=== PATIENT | female | born 1950 | race Caucasian/White ===

== ENCOUNTER → 2016-12-24 | Outpatient (CLI) | payer MEDICARE, OTHER ==
--- NOTE | 2016-12-25 12:33 | MM ---
Reason for exam: screening (asymptomatic). Last mammogram was performed 1 year ago. History: Patient is postmenopausal. Family history of breast cancer in paternal aunt and breast cancer in maternal cousin. Benign US LT VAD breast biopsy of the left breast, June 08, 2012. Left U/S Cancelled VAD Biopsy of both breasts, November 27, 2011. Took estrogen for 2 years. Physical Findings: A clinical breast exam by your physician is recommended on an annual basis and results should be correlated with mammographic findings. MG 3D Screening Mammo W/Cad Bilateral CC and MLO view(s) were taken. Prior study comparison: December 19, 2015, bilateral MG 3d screening mammo w/cad. December 13, 2014, bilateral MG 3d diag mammo w/cad ESTHELA. The breast tissue is heterogeneously dense. This may lower the sensitivity of mammography. No suspicious abnormality. Post biopsy change on left breast. No significant changes when compared with prior studies. ASSESSMENT: Benign, BI-RAD 2 RECOMMENDATION: Routine screening mammogram of both breasts in 1 year.
== END | disposition home or self-care (01) ==
LOC: RADMAMWWP 09:09
PROVIDERS: ATTEND Obstetrics & Gynecology
DX: Z12.31 Encounter for screening mammogram for malignant neoplasm of breast (principal)
CPT/HCPCS: 77063; G0202

== ENCOUNTER → 2018-01-07 | Outpatient (CLI) | payer MEDICARE, OTHER ==
--- NOTE | 2018-01-07 20:24 | BD ---
EXAMINATION TYPE: Axial Bone Density DATE OF EXAM: 01/07/2018 CLINICAL HISTORY: 67-year-old female osteopenia Height: 64 inches Weight: 181 FRAX RISK QUESTIONS: Alcohol (3 or more units per day): no Family History (Parent hip fracture): yes, father Glucocorticoids (More than 3mos): no (Ex: prednisone, prednisolone, methylprednisolone, dexamethasone, and hydrocortisone). History of Fracture in Adulthood: foot-"hair-line" frac ture 12-15 years ago Secondary Osteoporosis: 1. Type 1 Diabetes: no 2. Hyperthyroidism: unsure 3. Menopause before 45: no 4. Malnutrition: no 5. Chronic liver disease: no Rheumatoid Arthritis: no Current Tobacco Use: no RISK FACTORS HISTORY OF: Family History of Osteoporosis: yes Active: yes Diet low in dairy products/other sources of calcium: no Postmenopausal woman: yes Take estrogen and/or progesterone medications: not now How lon years Lost more than 2 inches in height since high school: no Frequent falls: no Poor Health: no Hyperparathyroidism: no Adrenal Insufficiency: no MEDICATIONS: Prednisone or other steroids: no Thyroid Medications: yes Which medication: Levothyroxine How Long: about 15 years Osteoporosis Medications: not now Which medication: Actonel How Long: about 12-18 months... several years ago Additional Medications: calcium & Vitamin D ; Multi-vitamin, Simvastatin Additional History: EXAM MEASUREMENTS: Bone mineral densitometry was performed using the [email or web address] System. Bone mineral density as measured about the Lumbar spine is: ----- L1-L4(G/cm2): 1.051 T Score Values are as follows: ----- L2: -1.0 ----- L3: -0.5 ----- L4: -1.3 ----- L1-L4: -1.1 Bone mineral density has: Decreased -1.2% since study of: 04/04/2015 Bone mineral density about the R hip (g/cm2): 0.863 Bone mineral density about the L hip (g/cm2): 0.874 T Score values are as follows: -----R Neck: -1.3 -----L Neck: -1.2 -----R Total: 0.0 -----L Total: -0.3 Bone mineral density has: Decreased -1.0% since study of: 04/04/2015 IMPRESSION: Osteopenia (T Score between -2.5 and -1). There is slightly increased risk of fracture and the patient may be considered for treatment. Re-Screen 2-5 years. NOTE: T-SCORE=SD OF THE YOUNG ADULT MEAN.
--- NOTE | 2018-01-12 10:47 | MM ---
Reason for exam: screening (asymptomatic). Last mammogram was performed 1 year ago. History: Patient is postmenopausal. Family history of breast cancer in paternal aunt and breast cancer in maternal cousin. Benign US LT VAD breast biopsy of the left breast, June 08, 2012. Left U/S Cancelled VAD Biopsy of both breasts, November 27, 2011. Took estrogen for 2 years. Physical Findings: A clinical breast exam by your physician is recommended on an annual basis and results should be correlated with mammographic findings. MG 3D Screening Mammo W/Cad Bilateral CC and MLO view(s) were taken. Prior study comparison: December 24, 2016, bilateral MG 3d screening mammo w/cad. December 19, 2015, bilateral MG 3d screening mammo w/cad. The breast tissue is heterogeneously dense. This may lower the sensitivity of mammography. No suspicious abnormality on left. Left biopsy marker noted. There are two new rounded central middle depth asymmetires on CC 3D 32/67 on the right. No correlate on MLO. ASSESSMENT: Incomplete: need additional imaging evaluation, BI-RAD 0 RECOMMENDATION: Special view mammogram of the right breast. If lesion persists on supplemental views, image directed ultrasound is recommended. [facility] will attempt to contact patient to return for supplemental views and ultrasound if indicated.
== END | disposition home or self-care (01) ==
LOC: RADMAMWWP 11:38
PROVIDERS: ATTEND Obstetrics & Gynecology
DX: Z12.31 Encounter for screening mammogram for malignant neoplasm of breast (principal); M85.80 Other specified disorders of bone density and structure, unspecified site; M89.9 Disorder of bone, unspecified
CPT/HCPCS: 77063; 77067; 77080

== ENCOUNTER → 2018-01-13 | Outpatient (CLI) | payer MEDICARE, OTHER ==
--- NOTE | 2018-01-13 14:54 | MM ---
Reason for exam: additional evaluation requested from abnormal screening. Last mammogram was performed less than 1 month ago. History: Patient is postmenopausal. Family history of breast cancer in paternal aunt and breast cancer in maternal cousin. Benign US LT VAD breast biopsy of the left breast, June 08, 2012. Left U/S Cancelled VAD Biopsy of both breasts, November 27, 2011. Took estrogen for 2 years. Physical Findings: Nurse did not find any significant physical abnormalities on exam. MG 3D Work Up W/Cad RT Spot compression CC, spot compression MLO, and ML view(s) were taken of the right breast. Prior study comparison: January 07, 2018, bilateral MG 3d screening mammo w/cad. December 24, 2016, bilateral MG 3d screening mammo w/cad. There is chronic nodularity in the right breast. There is no discrete abnormality on compression. No significant new findings when compared with previous films. These results were verbally communicated with the patient and result sheet given to the patient on 01/13/18. ASSESSMENT: Probably benign, BI-RAD 3 RECOMMENDATION: Routine screening mammogram of the right breast in 6 months.
== END | disposition home or self-care (01) ==
LOC: RADMAMWWP 13:41
PROVIDERS: ATTEND Obstetrics & Gynecology
DX: R92.8 Other abnormal and inconclusive findings on diagnostic imaging of breast (principal)
CPT/HCPCS: 77065; G0279; 77061

== ENCOUNTER → 2018-05-01 | Outpatient (CLI) | payer MEDICARE, OTHER ==
--- NOTE | 2018-05-01 11:05 | US ---
EXAMINATION TYPE: US pelvic complete DATE OF EXAM: 05/01/2018 COMPARISON: US 03/23/15 CLINICAL HISTORY: R60.0 EDEMA R74.8 elevated liver enzymes. TECHNIQUE: Transabdominal (TA). Transabdominal sonographic images of the pelvis were acquired. Date of LMP: postmenopausal EXAM MEASUREMENTS: Uterus: Surgically absent cm Endometrial Stripe: Surgically absent cm Right Ovary: Not well seen cm Left Ovary: 1.7 x 1.1 x 1.1 cm 1. Uterus: Surgically absent 2. Endometrium: Surgically absent 3. Right Ovary: No pathology seen 4. Left Ovary: wnl. 5. Bilateral Adnexa: wnl 6. Posterior cul-de-sac: wnl IMPRESSION: Limited exam.
--- NOTE | 2018-05-01 11:51 | US ---
EXAMINATION TYPE: US abdomen complete DATE OF EXAM: 05/01/2018 COMPARISON: NONE CLINICAL HISTORY: R60.0 EDEMA R74.8 elevated liver enzymes. EXAM MEASUREMENTS: Liver Length: 14.2 cm Gallbladder Wall: 0.1 cm CBD: 0.5 cm Spleen: 10.4 cm Right Kidney: 11.4 x 5.6 x 3.9 cm Left Kidney: 10.5 x 5.9 x 5.6 cm Pancreas: Obscured by bowel gas Liver: wnl Gallbladder: wnl Evidence for sonographic Hudson's sign: No CBD: wnl Spleen: wnl Right Kidney: No hydronephrosis or masses seen Left Kidney: No hydronephrosis or masses seen Upper IVC: wnl Abd Aorta: wnl, there are atheromatous changes. There is no ascites. IMPRESSION: There are limitations. No significant abnormalities evident.
== END ==
LOC: RADUSWWP 09:22
PROVIDERS: ATTEND Family Medicine
DX: R60.0 Localized edema (principal); R74.8 Abnormal levels of other serum enzymes
CPT/HCPCS: 76700; 76856

== ENCOUNTER → 2018-07-03 | Outpatient (CLI) | payer MEDICARE, OTHER ==
--- NOTE | 2018-07-03 14:07 | XR ---
EXAMINATION TYPE: XR bone survey complete DATE OF EXAM: 07/03/2018 COMPARISON: NONE HISTORY: Arthritis, monoclonal gammopathy 16 views of the skeleton including the frontal and lateral spine, frontal calvarium, frontal chest x- ray, frontal views of the proximal upper and lower extremities and frontal pelvis. There is an anterolisthesis grade 1 L4-5, there are facet arthropathy changes associated with degener ative disc change in the lumbar spine. No punched-out lesions to suggest multiple myeloma are evident . Bone mineralization is reduced. Anterolisthesis grade 1 C4-5, loss of disc at C5-6 with associated spondylosis also noted. There are facet arthropathy changes in the cervical spine. IMPRESSION: Degenerative disc changes, osteopenia.
== END | disposition home or self-care (01) ==
LOC: RADXRMAIN 10:11
PROVIDERS: ATTEND Internal Medicine Hematology & Oncology
DX: M51.36 Other intervertebral disc degeneration, lumbar region (principal); M85.80 Other specified disorders of bone density and structure, unspecified site; D47.2 Monoclonal gammopathy; M12.9 Arthropathy, unspecified; E03.8 Other specified hypothyroidism; E78.00 Pure hypercholesterolemia, unspecified
CPT/HCPCS: 77075

== ENCOUNTER → 2018-07-10 | Outpatient (CLI) | payer MEDICARE, OTHER ==
--- NOTE | 2018-07-10 12:25 | NM ---
EXAMINATION TYPE: NM bone scan whole body DATE OF EXAM: 07/10/2018 COMPARISON: Skeletal survey 07/03/2018 HISTORY: Monoclonal gammopathy Delayed whole-body scanning was performed following the injection of 23.1 mCi Tc 99m MDP. Images wer e acquired 3 hours post injection. FINDINGS: There is some focal radiotracer accumulation within the left distal forearm near the wrist which may be the injection site. There is increased uptake in the region of the right knee and at the left foot tarsal metatarsal junc tion most likely degenerative in nature. Spot imaging is performed over the axial and appendicular skeleton. No suspicious photopenic defects are evident. IMPRESSION: 1. No suspicious focal areas of abnormal uptake suggestive for metastatic type disease. 2. Focal uptake at the knee and left midfoot more likely related to degenerative changes
== END | disposition home or self-care (01) ==
LOC: RADNMMAIN 07:54
PROVIDERS: ATTEND Internal Medicine Hematology & Oncology
DX: D47.2 Monoclonal gammopathy (principal); Z91.09 Other allergy status, other than to drugs and biological substances
CPT/HCPCS: 78306; A9503

== ENCOUNTER → 2018-07-23 | Outpatient (CLI) | payer MEDICARE, OTHER ==
--- NOTE | 2018-07-23 09:37 | MM ---
Reason for exam: follow-up at short interval from prior study. Last mammogram was performed 6 months ago. History: Patient is postmenopausal. Family history of breast cancer in paternal aunt and breast cancer in maternal cousin. Benign US LT VAD breast biopsy of the left breast, June 08, 2012. Left U/S Cancelled VAD Biopsy of both breasts, November 27, 2011. Took estrogen for 2 years. Physical Findings: Nurse did not find any significant physical abnormalities on exam. MG 3D Diag Mammo W/Cad RT CC and MLO view(s) were taken of the right breast. Prior study comparison: January 13, 2018, right breast MG 3d work up w/cad RT. January 07, 2018, bilateral MG 3d screening mammo w/cad. The breast tissue is heterogeneously dense. This may lower the sensitivity of mammography. The previously seen abnormality resolves on additional views and appears as fibroglandular tissue compatible with summation. These results were verbally communicated with the patient and result sheet given to the patient on 07/23/18. ASSESSMENT: Benign, BI-RAD 2 RECOMMENDATION: Return to routine screening mammogram schedule for both breasts. Back on schedule for December 2018.
== END | disposition home or self-care (01) ==
LOC: RADMAMWWP 07:21
PROVIDERS: ATTEND Obstetrics & Gynecology
DX: R92.8 Other abnormal and inconclusive findings on diagnostic imaging of breast (principal)
CPT/HCPCS: 77065; G0279; 77061

== ENCOUNTER → 2019-02-08 | Outpatient (CLI) | payer MEDICARE, OTHER ==
--- NOTE | 2019-02-08 11:45 | MM ---
Reason for exam: follow-up at short interval from prior study. Last mammogram was performed 7 months ago. History: Patient is postmenopausal. Family history of breast cancer in paternal aunt at age 70 and breast cancer in maternal cousin at age 50. Benign US LT VAD breast biopsy of the left breast, June 08, 2012. Left U/S Cancelled VAD Biopsy of both breasts, November 27, 2011. Took estrogen for 2 years. Physical Findings: Nurse Summary: 1cm nodule in the left breast at 12 o'clock, 1 o'clock (nurse mj). MG 3D Diag Mammo W/Cad ESTHELA Bilateral CC and MLO view(s) were taken. Prior study comparison: July 23, 2018, right breast MG 3d diag mammo w/cad RT. January 13, 2018, right breast MG 3d work up w/cad RT. There are scattered fibroglandular densities. Previous mammotome biopsy in the left breast. There is chronic nodularity in the right breast. Two palpable markers anteriorly on the left. These results were verbally communicated with the patient and result sheet given to the patient on 02/08/19. ASSESSMENT: Incomplete: need additional imaging evaluation, BI-RAD 0 RECOMMENDATION: Ultrasound of the left breast. (targeted to the palpable)
--- NOTE | 2019-02-08 11:46 | USB ---
Reason for exam: additional evaluation requested from abnormal screening. History: Patient is postmenopausal. Family history of breast cancer in paternal aunt at age 70 and breast cancer in maternal cousin at age 50. Benign US LT VAD breast biopsy of the left breast, June 08, 2012. Left U/S Cancelled VAD Biopsy of both breasts, November 27, 2011. Took estrogen for 2 years. US Breast Limited LT Left limited breast ultrasound including focal area of concern, retroareolar and axilla demonstrates no cystic or solid lesion seen. Scanned 12-3 o'clock. These results were verbally communicated with the patient and result sheet given to the patient on 02/08/19. ASSESSMENT: Benign, BI-RAD 2 RECOMMENDATION: Routine screening mammogram of both breasts in 1 year. Manage on a clinical basis for suspected bruising at 12 o'clock.
== END | disposition home or self-care (01) ==
LOC: RADMAMWWP 10:09
PROVIDERS: ATTEND Obstetrics & Gynecology
DX: N63.20 Unspecified lump in the left breast, unspecified quadrant (principal); R92.8 Other abnormal and inconclusive findings on diagnostic imaging of breast
CPT/HCPCS: 77066; 76642; G0279; 77062

== ENCOUNTER → 2019-03-18 | Outpatient (CLI) | payer MEDICARE, OTHER ==
[2019-03-18 14:15] VITALS: BP 166/84; PULSE 86; RESP 18; TEMP 97.7
--- NOTE | 2019-03-18 14:54 | P.GSHP ---
History of Present Illness H&P Date: 03/18/19 Chief Complaint: breast mass Kinza is a 68 year old white female seen in consultation for Dr. Murphy/ Dr. Felix with a complaint of two nodules in her left breast. She noted the nodularity in January of 2019. The patient had a bilateral mammogram on 122 [id number]. This was a 3-D. It revealed a previous mammotome biopsy site in the left breast. Chronic nodularity was noted in the right breast. 2 palpable markers anteriorly on the left were placed ultrasound of the left breast was recommended. The patient underwent a left breast ultrasound on the same date no solid lesions or cystic lesions of concern were identified. The patient does not have any history of any recent trauma or infection in either breast. The patient states her prior stereotactic core biopsy was benign. She states that the area of nodularity is not painful. It has not changed in size. NO nipple discharge or skin changes. The patient has been diagnosed with polymyalgia rheumatica 2018, and follows with Dr. Nelson. She has a known monoclonal gammopathy however has not been diag nosed with multiple myeloma herself. caffeine: none smoke: none chocolate: occasional Family History: brother: liver cancer sister: multipe myloma, colon cancer brother: stomach cancer brother: prostate cancer brother: multiple myloma Hormonal History: menarche: 12 , 4 miscarriages, first born at 18. breast fed:no menopause: 47 BCP: no hormones: < 1 year Surgical History: 1. D&C,s 2. bladder suspension 3. partial hysterectomy Medical History: 1. polymalgia rheumatica Social History: smoke: none alcohol: none drugs: none - Constitutional Constitutional: Denies chills, Denies fever - EENT Comment: freckle right eye, increased pressure in eyes Eyes: right decreased vision Ears: deny: decreased hearing, tinnitus Ears, nose, mouth and throat: Denies headache, Denies sore throat - Breasts Breasts: bilateral: as per HPI - Cardiovascular Cardiovascular: Denies chest pain, Denies shortness of breath - Respiratory Respiratory: Denies cough, Denies 7 - Gastrointestinal Gastrointestinal: Denies abdominal pain, Denies diarrhea, Denies nausea, Denies vomiting - Genitourinary (Female) Genitourinary: Denies dysuria, Denies hematuria - Menstruation Menstruation: Reports post hysterectomy, Reports postmenopausal - Musculoskeletal Comment: PMR, on steroids for 8 months - Integumentary Integumentary: Denies pruritus, Denies rash - Neurological Neurological: Denies numbness, Denies weakness - Psychiatric Psychiatric: Denies anxiety, Denies depression - Endocrine Comment: hypothyroid Endocrine: Denies fatigue, Denies weight change - Hematologic/Lymphatic Comment: none - Allergic/Immunologic Allergic/Immunologic: Reports as per HPI Past Medical History Past Medical History: GI Bleed, Hyperlipidemia, Thyroid Disorder History of Any Multi-Drug Resistant Organisms: None Reported Past Surgical History: Bladder Surgery, Hysterectomy Additional Past Surgical History / Comment(s): D&C Past Anesthesia/Blood Transfusion Reactions: No Reported Reaction Smoking Status: Never smoker Past Alcohol Use History: None Reported Past Drug Use History: None Reported - Past Family History Brother(s) Family Medical History: Cancer, Coronary Artery Disease (CAD) Mother Family Medical History: Coronary Artery Disease (CAD), Diabetes Mellitus Father Family Medical History: Coronary Artery Disease (CAD), CVA/TIA Medications and Allergies Home Medications Medication Instructions Recorded Confirmed Type Calcium Carbonate [Calcium] 600 mg PO DAILY 01/22/16 03/18/19 History Cranberry Fruit Extract [Cranberry] 500 mg PO DAILY 01/22/16 03/18/19 History Levothyroxine Sodium [Synthroid] 88 mcg PO DAILY 01/22/16 03/18/19 History Multivitamins, Thera [Multivitamin] 1 tab PO DAILY 01/22/16 03/18/19 History Simvastatin [Zocor] 20 mg PO HS 01/22/16 03/18/19 History Acetaminophen [Tylenol Extra 500 mg PO DAILY PRN 03/18/19 03/18/19 History Strength] Omeprazole 20 mg PO DAILY 03/18/19 03/18/19 History predniSONE 5 mg PO DAILY 03/18/19 03/18/19 History Allergies Allergy/AdvReac Type Severity Reaction Status Date / Time Iodinated Contrast Media Allergy Rash/Hives Verified 03/18/19 14:15 [Iodinated Contrast Media - IV Dye] Surgical - Exam Vital Signs Temp Pulse Resp BP Pulse Ox 97.7 F 86 18 166/84 100 03/18/19 14:12 03/18/19 14:12 03/18/19 14:12 03/18/19 14:12 03/18/19 14:12 BMI 30.9 - General well developed, well nourished, no distress - Eyes normal ocular movement - ENT no hearing loss, no congestion - Neck trachea midline, no lymphadectomy - Respiratory normal expansion, normal respiratory effort, clear to percussion, clear to auscultation - Cardiovascular Rhythm: regular Heart Sounds: normal: S1, S2 - Abdomen no organomegaly Abdomen: soft, bowel sounds - Integumentary normal turgor - Neurologic no disoriented, no combative - Musculoskeletal normal gait, normal posture - Psychiatric oriented to time, oriented to person, oriented to place, speech is normal, memory intact breast exam: BRA size 36 DD ptosis grade 3 Inspection: Multiple inversion, no skin changes of concern Palpation: Right breast: Multiple positional exam no dominant masses or nodules of concern, fibrocystic changes Right axilla: No adenopathy of concern Left breast: Multiple positional exam 2 palpable nodules at 1:30 and at 2:00 these are firm and mobile; each lesion is approximately 8 mm in size Fibrocystic changes, no other lesions of concern Left axilla: No adenopathy of concern Results mammogram and ultrasound results reviewed Assessment and Plan Assessment: Impression: 1. 2 nodules left breast at 1:30 and 2:00, suspect fat necrosis 2. Fibrocystic breast changes 3. Benign bilateral mammogram and ultrasound from October 2018 4. Polymyalgia rheumatica/ on steroids 5. Hypothyroid Plan: 1. FNA of 2 areas of palpable abnormality 2. Medical management of medical conditions 3. Depending on results of FNA for further recommendation to follow Risk and benefits of FNA discussed with the patient. Increased risk of hematoma related to steroid use. Risk of infection also discussed. Patient understands and wishes to proceed. Cc: Dr. Felix, DR. Murphy encounter 30 minutes, > 50% of time in planning and counselling Time with Patient: Greater than 30
--- NOTE | 2019-03-18 15:06 | P.PCN ---
Date of Procedure: 03/18/19 Preoperative Diagnosis: mass left breast (2) 1:30 and 2:00 Postoperative Diagnosis: same Procedure(s) Performed: FNA two areas of left breast Surgeon: Gwen Craig Pathology: other (breast tissue) Condition: stable Disposition: same day Indications for Procedure: palpable masses times two in the left breast Description of Procedure: In both areas of concern in the left breast were prepped using alcohol. 22- gauge needle on a 10 mL syringe was used to aspirate the tissue. The area 1:30 was approached initially. Alcohol was used to prep the area. A 22-gauge needle on a 10 mL syringe was inserted into the lesion of concern and tissue was obtained. Following this the 2:00 area was approached in the same fashion. Alcohol was used to prep the area 22-gauge needle on a 10 mL syringe was inserted into the lesion of concern and tissue was obtained. Tissue was sent for cytology. Band-Aids were placed over each of the ends biopsy sites. Patient tolerated the procedure in stable condition. Plan: 1. Patient will call next week for results of the FNA If FNA is non-worrisome the patient will still have the palpable masses removed in the operating room. Risks and benefits of this procedure discussed with the patient. These include bleeding infection reaction to the anesthetic. The patient understands and wishes to proceed. 2. If the lesion is atypical or worrisome that we will do the excision in the operating room at an earlier date. CC: DR. Felix, Dr. Murhpy
== END | disposition home or self-care (01) ==
LOC: WWCWWP 13:41
PROVIDERS: ATTEND Surgery
DX: N63.21 Unspecified lump in the left breast, upper outer quadrant (principal)
CPT/HCPCS: 88173; 88305

== ENCOUNTER → 2019-07-29 | Outpatient (CLI) | payer MEDICARE, OTHER ==
[2019-07-29 11:11] VITALS: BP 133/78; PULSE 97; RESP 20; TEMP 98.1
--- NOTE | 2019-07-29 11:32 | P.PN ---
Subjective Progress Note Date: 07/29/19 Principal diagnosis: masses left breast Kinza is a 68 year old white female seen in consultation for Dr. Murphy/ Dr. Felix with a complaint of two nodules in her left breast. She noted the nodularity in January of 2019. The patient had a bilateral mammogram on [id number]. This was a 3-D. It revealed a previous mammotome biopsy site in the left breast. Chronic nodularity was noted in the right breast. 2 palpable markers anteriorly on the left were placed ultrasound of the left breast was recommended. The patient underwent a left breast ultrasound on the same date no solid lesions or cystic lesions of concern were identified. The patient does not have any history of any recent trauma or infection in either breast. The patient states her prior stereotactic core biopsy was benign. She states that the area of nodularity is not painful. It has not changed in size. No nipple discharge or skin changes. The patient has been diagnosed with polymyalgia rheumatica 2018, and follows with Dr. Nelson. She has a known monoclonal gammopathy however has not been d iagnosed with multiple myeloma herself. FNA of the palpable changes in the breast was preformed on 03-18-19, and these were benign. The nodules in her left breast have not changed in size, they are not painful. caffeine: none smoke: none chocolate: occasional Family History: brother: liver cancer sister: multipe myloma, colon cancer brother: stomach cancer brother: prostate cancer brother: multiple myloma Hormonal History: menarche: 12 , 4 miscarriages, first born at 18. breast fed:no menopause: 47 BCP: no hormones: < 1 year Surgical History: 1. D&C,s 2. bladder suspension 3. partial hysterectomy Medical History: 1. polymalgia rheumatica/ diagnosis was changed to rheumatoid arthritis 2. Monoclonal gammopathy Social History: smoke: none alcohol: none drugs: none - Constitutional Constitutional: Denies chills, Denies fever - EENT Comment: freckle right eye, increased pressure in eyes Eyes: right decreased vision Ears: deny: decreased hearing, tinnitus Ears, nose, mouth and throat: Denies headache, Denies sore throat - Breasts Breasts: bilateral: as per HPI - Cardiovascular Cardiovascular: Denies chest pain, Denies shortness of breath - Respiratory Respiratory: Denies cough, - Gastrointestinal Gastrointestinal: Denies abdominal pain, Denies diarrhea, Denies nausea, Denies vomiting - Genitourinary (Female) Genitourinary: Denies dysuria, Denies hematuria - Menstruation Menstruation: Reports post hysterectomy, Reports postmenopausal - Musculoskeletal Comment: Diagnosis of polymyalgia rheumatica has been changed to rheumatoid arthritis patient is presently on hydroxychloroquine and prednisone with marked improvement - Integumentary Integumentary: Denies pruritus, Denies rash - Neurological Neurological: Denies numbness, Denies weakness - Psychiatric Psychiatric: Denies anxiety, Denies depression - Endocrine Comment: hypothyroid Endocrine: Denies fatigue, Denies weight change - Hematologic/Lymphatic Comment: none - Allergic/Immunologic Allergic/Immunologic: Reports as per HPI Past Medical History Past Medical History: GI Bleed, Hyperlipidemia, Thyroid Disorder History of Any Multi-Drug Resistant Organisms: None Reported Past Surgical History: Bladder Surgery, Hysterectomy Additional Past Surgical History / Comment(s): D&C Past Anesthesia/Blood Transfusion Reactions: No Reported Reaction Smoking Status: Never smoker Past Alcohol Use History: None Reported Past Drug Use History: None Reported Objective - Vital Signs Vital signs: Vital Signs Temp 98.1 F 07/29/19 11:08 Pulse 97 07/29/19 11:08 Resp 20 07/29/19 11:08 BP 133/78 07/29/19 11:08 Pulse Ox 98 07/29/19 11:08 Intake & Output 07/28/19 07/29/19 07/29/19 18:59 06:59 18:59 Weight 81.647 kg - Exam BMI 30.9 - Constitutional General appearance: Present: average body habitus - EENT Eyes: Present: EOMI ENT: Present: hearing grossly normal - Neck Neck: Present: normal ROM - Respiratory Respiratory: bilateral: CTA - Cardiovascular Rhythm: regular Heart sounds: normal: S1, S2 - Integumentary Integumentary: Present: normal turgor - Musculoskeletal Musculoskeletal: Present: gait normal - Psychiatric Psychiatric: Present: A&O x's 3, appropriate affect, intact judgment & insight - Additional findings Additional findings: breast exam: BRA 42DD inspection:grade 3 ptosis bilateral no nipple inversion Palpation: Right breast: Multiple positional exam no dominant masses or nodules of concern Right axilla: No adenopathy of concern Left breast: Multiple positional exam in the area of increased nodularity/firmness is noted approximately 1:30 position of the left breast, no lesion is felt today at 2:00 in the periareolar lesion is identified of concern Left axilla: No adenopathy of concern Assessment and Plan Assessment: Impression: 1. Palpable mass left breast 1:30 position, prior FNA did not show any malignancy 2. Secondary and left breast at 2:00 was not felt today 3. Bilateral fibrocystic breast changes 4. History of elevated rheumatoid arthritis 5. Monoclonal gammopathy followed by Dr. parra Plan: 1. Surgical excision of palpable mass in the left breast 2. Continue follow up with medical doctors Risk and benefits of the procedure discussed with the patient and she wishes to proceed. CC: DR. Felix encounter 25 minutes, > 50% of time in planning and counselling
== END | disposition home or self-care (01) ==
LOC: WWCWWP 10:43
PROVIDERS: ATTEND Surgery
DX: Z53.9 Procedure and treatment not carried out, unspecified reason (principal)

== ENCOUNTER 2019-09-07 06:54 | Day surgery (SDC) | payer MEDICARE, OTHER ==
[2019-09-03 12:51] VITALS: BMI 28.1
[~2019-09-07 06:54] MED LIST: HEPARIN SODIUM,PORCINE 5,000 UNIT/ML 1 ML VIAL SQ ONE; HYDROmorphone 0.5 MG/0.5 ML SYRINGE IVP PRN; LACTATED RINGERS 1,000 ML IV SCH; LIDOCAINE 1% (10MG/ML) FOR IV START INTRADERMA PRN; ONDANSETRON 4 MG/2 ML VIAL IVP ONE
[2019-09-07] MEDS ORDERED: HEPARIN SODIUM,PORCINE 5,000 UNIT/ML 1 ML VIAL ONE (07:48)
[2019-09-07] MEDS ORDERED: ONDANSETRON 4 MG/2 ML VIAL ONE (07:48)
[2019-09-07] MEDS ORDERED: HYDROCORTISONE SUCCINATE 100 MG/2 ML VIAL IV ONE (08:25)
[2019-09-07] MEDS ORDERED: fentaNYL (PF) 50 MCG/ML 2 ML AMP ONE (08:49)
[2019-09-07] MEDS ORDERED: LIDOCAINE 1% INJ 10MG/ML (20 ML MDV) ONE (08:49)
[2019-09-07] MEDS ORDERED: PHENYLEPHRINE-0.9% NACL SYG 1 MG/10 ML SYRINGE ONE (08:49)
[2019-09-07] MEDS ORDERED: PROPOFOL 10 MG/ML 20 ML VIAL IV ONE (08:49)
[2019-09-07] MEDS ORDERED: MIDAZOLAM 2 MG/2 ML VIAL ONE (08:49)
[2019-09-07] MEDS ORDERED: SUCCINYLCHOLINE CHLORIDE 100 MG/5 ML SYR IV ONE (08:49)
[2019-09-07] MEDS ORDERED: LACTATED RINGERS 1,000 ML IV ONE (09:16)
[2019-09-07] MEDS ORDERED: LIDOCAINE (PF) 10 MG/ML 2 ML VIAL SQ ONE (09:23)
--- NOTE | 2019-09-07 09:31 | P.OP ---
Date of Procedure: 09/07/19 Preoperative Diagnosis: Mass left breast a 1:30 Postoperative Diagnosis: Same Procedure(s) Performed: Excision mass left breast at 1:30 Anesthesia: KETAN, local Surgeon: Gwen Craig Estimated Blood Loss (ml): 5 IV fluids (ml): 500 Pathology: other (Breast tissue) Condition: stable Disposition: same day Indications for Procedure: Palpable mass left breast, FNA benign, mass firm and of concern to patient Operative Findings: Firm mass 1:30 Left breast Description of Procedure: The patient is a 69-year-old white female with a palpable mass in the left breast at 1:30. This has been present for several months and is not going away. An FNA was performed which was benign however the mass is firm and palpable. It is of concern to the patient. Radiographic studies have been non-worrisome. The option of surgical resection was discussed and the patient wishes to have this performed. Risks and benefits of procedure discussed with the patient and she wished to proceed. The patient was brought to the operating room and following induction of anesthesia the left breast was prepped and draped in a sterile fashion. An incision was made over the palpable abnormality. Elliptical excision was performed removing a portion of skin. The depth of the excision was approximately 1 1/2 cm. Following this the wound was examined for hemostasis. After assured that hemostasis was attained the deep tissues were closed using 3- 0 Vicryl suture. The skin was closed using 3-0 Vicryl suture in the subcutaneous plane followed by a followed by a 4-0 Monocryl subcuticular suture. Mastisol and Steri-Strips were applied. 10 mL of 1% lidocaine was injected into the area prior to the placement of Steri-Strips and Mastisol. The specimen was painted for orientation. The patient tolerated the procedure in stable condition. All instrument and sponge counts were correct at the end of the case.
--- NOTE | 2019-09-07 09:33 | P.DS ---
Providers Attending physician: Gwen Craig Primary care physician: Selena Felix Plan - Discharge Summary Discharge Rx Participant: No New Discharge Prescriptions: No Action Levothyroxine Sodium [Synthroid] 88 mcg PO DAILY Multivitamins, Thera [Multivitamin] 1 tab PO DAILY Simvastatin [Zocor] 20 mg PO HS Cranberry Fruit Extract [Cranberry] 500 mg PO DAILY predniSONE 5 mg PO DAILY Omeprazole 20 mg PO DAILY Hydroxychloroquine Sulfate [Plaquenil] 200 mg PO BID Calcium Carbonate/Vitamin D3 [Caltrate 600 Plus D3 Tablet] 2 tab PO DAILY Latanoprost/Pf [Latanoprost 0.005% Eye Drop] 1 drop BOTH EYES HS Discharge Medication List Cranberry Fruit Extract [Cranberry] 500 mg PO DAILY 01/22/16 [History] Levothyroxine Sodium [Synthroid] 88 mcg PO DAILY 01/22/16 [History] Multivitamins, Thera [Multivitamin] 1 tab PO DAILY 01/22/16 [History] Simvastatin [Zocor] 20 mg PO HS 01/22/16 [History] Omeprazole 20 mg PO DAILY 03/18/19 [History] predniSONE 5 mg PO DAILY 03/18/19 [History] Calcium Carbonate/Vitamin D3 [Caltrate 600 Plus D3 Tablet] 2 tab PO DAILY 07/29/19 [History] Hydroxychloroquine Sulfate [Plaquenil] 200 mg PO BID 07/29/19 [History] Latanoprost/Pf [Latanoprost 0.005% Eye Drop] 1 drop BOTH EYES HS 09/03/19 [History] Follow up Appointment(s)/Referral(s): Gwen Craig MD [STAFF PHYSICIAN] - 1 Week Activity/Diet/Wound Care/Special Instructions: Do not drive for 24 hours after discharge Good bra at all times May shower after 48 hours Discharge Disposition: HOME SELF-CARE
[2019-09-07 09:40] VITALS: TEMP 97.6
[2019-09-07 10:02] VITALS: RESP 16
[2019-09-07 10:58] VITALS: BP 171/75; PULSE 77
== END 2019-09-07 11:13 | disposition home or self-care (01) ==
LOC: OR 06:54
PROVIDERS: ATTEND Surgery
DX: N60.12 Diffuse cystic mastopathy of left breast (principal); N60.42 Mammary duct ectasia of left breast; E78.5 Hyperlipidemia, unspecified; E03.9 Hypothyroidism, unspecified; K21.9 Gastro-esophageal reflux disease without esophagitis; D47.2 Monoclonal gammopathy; M35.3 Polymyalgia rheumatica; M06.9 Rheumatoid arthritis, unspecified; Z80.7 Family history of other malignant neoplasms of lymphoid, hematopoietic and related tissues; Z80.1 Family history of malignant neoplasm of trachea, bronchus and lung; Z79.890 Hormone replacement therapy; Z79.899 Other long term (current) drug therapy; Z90.711 Acquired absence of uterus with remaining cervical stump; Z98.890 Other specified postprocedural states; Z87.891 Personal history of nicotine dependence; Z91.041 Radiographic dye allergy status
CPT/HCPCS: 19120; 88305; 88342; 88341; J2250; J2001 ×2; J1644; J1720; J0690; J2405; J3010; J2370; J0330; J2704

== ENCOUNTER → 2020-02-14 | Outpatient (CLI) | payer MEDICARE, OTHER ==
--- NOTE | 2020-02-14 13:35 | MM ---
Reason for exam: additional evaluation requested from prior study. Last mammogram was performed 1 year ago. History: Patient is postmenopausal. Family history of breast cancer in paternal aunt at age 70 and breast cancer in maternal cousin at age 50. Benign excisional biopsy of the left breast, August 2019. Benign US LT VAD breast biopsy of the left breast, June 08, 2012. Left U/S Cancelled VAD Biopsy of both breasts, November 27, 2011. Took estrogen for 2 years. Physical Findings: Nurse did not find any significant physical abnormalities on exam. MG 3D Diag Mammo W/Cad ESTHELA Bilateral CC and MLO view(s) were taken. Prior study comparison: February 08, 2019, bilateral MG 3d diag mammo w/cad ESTHELA. July 23, 2018, right breast MG 3d diag mammo w/cad RT. There are scattered fibroglandular densities. Finding #1: New architectural distortion in the upper outer quadrant, middle position of the left breast consistent with interval surgical excision changes. Finding #2: There are typically benign round calcifications in the left breast. Previous mammotome biopsy in the left breast. There is no discrete abnormality. These results were verbally communicated with the patient and result sheet given to the patient on 02/14/20. ASSESSMENT: Benign, BI-RAD 2 RECOMMENDATION: Routine screening mammogram of both breasts in 1 year.
== END | disposition home or self-care (01) ==
LOC: RADMAMWWP 12:33
PROVIDERS: ATTEND Surgery
DX: R92.8 Other abnormal and inconclusive findings on diagnostic imaging of breast (principal)
CPT/HCPCS: 77066; G0279; 77062

== ENCOUNTER → 2020-02-23 | Outpatient (CLI) | payer MEDICARE, OTHER ==
--- NOTE | 2020-02-23 13:52 | XR ---
EXAMINATION TYPE: XR knee complete LT DATE OF EXAM: 02/23/2020 CLINICAL HISTORY: Anterior pain. TECHNIQUE: Three views of the left knee are obtained. COMPARISON: None. FINDINGS: There is no acute fracture/dislocation evident in left knee. Mild to moderate tricompartme nt joint space loss without significant spurring. Increased density suprapatellar bursa suspicious fo r small joint effusion. IMPRESSION: As above.
== END | disposition home or self-care (01) ==
LOC: RADXRMAIN 13:15
PROVIDERS: ATTEND Family Medicine
DX: M25.862 Other specified joint disorders, left knee (principal)

== ENCOUNTER → 2020-03-13 | Outpatient (CLI) | payer MEDICARE, OTHER | END | disposition home or self-care (01) | LOC: LABWHC1 11:16 | PROVIDERS: ATTEND Orthopaedic Surgery | DX: Z01.812 Encounter for preprocedural laboratory examination (principal) | CPT/HCPCS: 87070 ==

== ENCOUNTER 2020-03-27 10:15 | Day surgery (SDC) | payer MEDICARE, OTHER ==
--- NOTE | 2020-03-26 17:22 | HP ---
HISTORY AND PHYSICAL REASON FOR ADMISSION: Surgery scheduled for 03/27/2020 HISTORY OF PRESENT ILLNESS: Kinza Adhikari is a 69-year-old patient seen with progressive right knee symptomatic osteoarthritis. We discussed options for treatment and she elected to proceed with right total knee arthroplasty. Consent was obtained. Medical clearance was provided by Dr. Selena Felix. PAST MEDICAL HISTORY: Hypothyroidism, hypertension, gastroesophageal reflux disease. PAST SURGICAL HISTORY: Breast biopsy, D and C, hysterectomy. MEDICATIONS: Levothyroxine, simvastatin, hydrochlorothiazide, metoprolol, omeprazole. ALLERGIES: CONTRAST IODINE. SOCIAL HISTORY: She denies tobacco use. PHYSICAL EXAMINATION: Evaluation of the right knee: Range of motion is -6/7-110. Mild effusion. Tenderness lateral joint line, crepitus lateral patellofemoral compartments. Ligaments stable. Hip rotation without pain. Distal neurovascular exam intact. RADIOGRAPHS: Radiographs of the right knee revealed severe osteoarthritic changes. IMPRESSION: 1. Right knee osteoarthritis. 2. Hyperlipidemia. 3. Hypertension. 4. Hypothyroidism. PLAN: Right total knee arthroplasty. Surgery 03/27/2020. MMODL / IJN: [id number] /
[~2020-03-27 10:15] MED LIST changes: +ACETAMINOPHEN TAB 500 MG TAB PO PRN; +DEXAMETHASONE SOD PHOSPHATE 4 MG/ML 1 ML VIAL IV ONE; -HEPARIN SODIUM,PORCINE 5,000 UNIT/ML 1 ML VIAL SQ ONE; -LIDOCAINE 1% (10MG/ML) FOR IV START INTRADERMA PRN; +MELOXICAM 7.5 MG TAB PO PRN; +MIDAZOLAM 2 MG/2 ML VIAL IV PRN; +ROPIVACAINE 246.25 MG, EPINEPHrine 0.5 MG, KETOROLAC 30 MG, cloNIDine HCL/PF 80 MCG, WA... MISCELLANE PRN; +ROPIVACAINE/EPI/CLONIDINE/KET 50 ML SYRINGE MISCELLANE PRN; +TRANEXAMIC ACID 1,000 MG in SODIUM CHLORIDE 0.9% 100 ML IVPB PRN
[2020-03-27] MEDS ORDERED: LACTATED RINGERS 1,000 ML IV ONE ×2 (10:38)
[2020-03-27] MEDS ORDERED: SODIUM CHLORIDE 0.9% 100 ML BAG ONE (12:42)
[2020-03-27] MEDS ORDERED: TRANEXAMIC ACID 1,000 MG/10 ML VIAL ONE (12:42)
[2020-03-27] MEDS ORDERED: PROPOFOL 10 MG/ML 20 ML VIAL IV ONE (12:42)
[2020-03-27] MEDS ORDERED: MIDAZOLAM 2 MG/2 ML VIAL ONE (12:42)
[2020-03-27] MEDS ORDERED: ceFAZolin 1,000 MG in SODIUM CHLORIDE 0.9% 1,000 ML IRRIGATION ONE (13:25)
--- NOTE | 2020-03-27 14:46 | P.OP ---
Date of Procedure: 03/27/20 Preoperative Diagnosis: Right knee osteoarthritis Postoperative Diagnosis: Right knee osteoarthritis Procedure(s) Performed: Right total knee arthroplasty Implants: 1. Depuy attune size 5 narrow right cruciate retaining cemented femur 2. Depuy attune size 4 fixed bearing cemented tibial baseplate 3. Depuy attune size 5 fixed bearing cruciate retaining 7 mm polyethylene tibial insert 4. Depuy attune 38 mm all polyethylene cemented patella Anesthesia: PAYAMA, local Surgeon: Ulices Reveles Supervisor Personnel Clerks #1: Black Garcia Estimated Blood Loss (ml): 40 Pathology: other (bone) Condition: stable Disposition: PACU Indications for Procedure: 69-year-old patient seen with symptomatic right knee osteoarthritis. After treatment options were discussed, she elected to proceed with total knee arthroplasty. Operative Findings: See description of procedure Description of Procedure: Patient was taken to the operative suite after having an adductor canal catheter placed by the department of anesthesia. Patient underwent a spinal anesthetic by the department of anesthesia. Patient was given preoperative IV intake antibiotics and TXA. A well-padded tourniquet was placed about the right lower extremity. The lower extremity was then prepped and draped in the normal sterile orthopedic fashion. The extremity was elevated, a tourniquet was insufflated to 300. A standard anterior incision was made sharply through skin. Dissection was taken down through the subcutaneous soft tissues down to the extensor mechanism. A medial arthrotomy was performed, patella was everted and knee was flexed. There was advanced osteoarthritis noted. I introduced my distal intramedullary femoral drill. I then introduced the distal femoral cutting jig. Jordan GRANT secured the cutting jig with 2 pins. I held retractors in position while Jordan GRANT performed the distal femoral resection through the guide area we now removed her distal femoral cutting guide. We now placed our 4-in-1 femoral cutting block and positioned and it was secured with 2 pins by Jordan GRANT while I held the block in position. The distal femoral finishing was now completed. A proximal tibial cutting guide was positioned. I held the guide in the appropriate position with both hands well Jordan GRANT inserted stabilizing pins into the guide. Proximal tibial cut was made. We now placed a trial femoral component into position, along with an appropriate size tibial tray and insert. We now took the knee through range of motion and had full extension good flexion and good overall soft tissue balance noted. The patella was everted and stabilized with 2 towel clips held by Jordan GRANT while I performed a flush with patellar quad tendon utilizing a fresh sawblade. We templated the patella, appropriate drill holes were made. An appropriate trial patella was positioned, knee was taken through full range of motion with the patella tracking very nicely. The trial patella was removed. Drill holes were made through the femoral component. All trial components were removed after marking off the appropriate rotation of the tibia. Retractors were now positioned along the proximal tibia. An appropriate keel punch was made with the appropriate size tibial guide by myself on Jordan GRANT assisted by holding retractors. At this point appropriate size implants were chosen and opened. The joint was irrigated copiously with pulse lavage mechanical irrigation. The posterior capsule was infiltrated with local analgesic. The wound was irrigated with pulse lavage mechanical irrigation. We mixed antibiotic methylmethacrylate. We placed the knee into flexion. We placed multiple retractors assisted by Jordan GRANT to expose the proximal tibia. Once the methyl methacrylate was ready, the tibial component was cemented into place removing any excess methylmethacrylate form by both myself and Jordan GRANT. The femoral component was cemented into place removing the removing any excess methylmethacrylate performed by both myself and Jordan GRANT. We then inserted the appropriate size polyethylene tibial insert. We made sure that it was locked into position. We took the knee into full extension, and then back in a flexion making sure we had removed any excess methylmethacrylate. The patellar component was then cemented down and secured with clamp. Excess methylmethacrylate removed. We kept the knee in full extension, patellar clamp in position until methylmethacrylate had hardened. Once it had hardened the patellar clamp was removed. The knee was taken through full range of motion. The patella tracked nicely. There was good soft tissue balancing. The tourniquet was now released. Additional hemostasis was achieved via electrocautery. A second gram of TXA was given. The wound again was irrigated with pulse lavage mechanical irrigation. The superficial soft tissues were infiltrated local analgesic. The extensor mechanism was repaired with Vicryl. We checked the repair with range of motion and it was stable. The subcutaneous soft tissues were repaired with Vicryl in layers. The skin was approximated with pernio/Dermabond. Sterile dressings were applied followed by loose web roll and Dayday bandage. The patient was transferred to a bed, and taken to recovery in stable and satisfactory condition. Jordan GRANT assisted with this complex procedure.
[2020-03-27] MEDS ORDERED: NALOXONE 0.4 MG/ML 1 ML VIAL IV PRN (14:47)
[2020-03-27] MEDS ORDERED: HYDROmorphone 0.2 MG/1 ML SYRINGE IVP PRN (14:47)
[2020-03-27] MEDS ORDERED: HYDROcodone/APAP 5-325MG 1 EACH TAB PO PRN (14:47)
[2020-03-27] MEDS ORDERED: HYDROmorphone 0.5 MG/0.5 ML SYRINGE IVP PRN ×2 (14:47)
[2020-03-27] MEDS ORDERED: ONDANSETRON 4 MG/2 ML VIAL IVP PRN (14:47)
[2020-03-27] MEDS ORDERED: ROPIVACAINE 0.2%-NS ON-Q PUMP 1,090 MG, EMPTY PAIN BALL 1 EACH MISCELLANE PRN (15:01)
--- NOTE | 2020-03-27 16:10 | XR ---
EXAMINATION TYPE: XR knee limited RT DATE OF EXAM: 03/27/2020 COMPARISON: NONE HISTORY: 69-year-old female evaluation for postoperative abnormality in alignment TECHNIQUE: 2 views FINDINGS: Images show placement of right total knee arthroplasty. Both distal femoral and proximal tibial compo nents of the prosthesis are well-seated without periprosthetic fracture. Anterior soft tissue swellin g with skin donnie as well as scattered soft tissue air as well as intra-articular air related to re cent operation. Alignment grossly anatomic. IMPRESSION: Uncomplicated postoperative appearance right total knee arthroplasty.
[2020-03-27] MEDS: METOPROLOL SUCCINATE (ER) 50 MG TAB.ER.24H PO SCH (18:48)
[2020-03-27] MEDS: LACTATED RINGERS 1,000 ML IV SCH (19:29)
--- NOTE | 2020-03-27 20:42 | P.CONS ---
History of Present Illness - Reason for Consult Consult date: 03/27/20 Medical Management - Chief Complaint S/p right total knee arthroplasty. - History of Present Illness Patient is a 69-year-old female with a known history of osteoarthritis, hypertension, hyperlipidemia, rheumatoid arthritis currently on Plaquenil and hypothyroidism was admitted to hospital for right total knee arthroplasty. Patient is currently able to sit in the chair and walking with a walker. Pain is controlled at this time. Postoperatively blood pressures elevated with SBP in 170s. Denied any complaints of chest pain or shortness of the. No cough or sputum production. No fever no chills. No nausea vomiting or abdominal pain or diarrhea. No dysuria or hematuria. Knee x-ray showed uncomplicated postoperative appearance right total knee arthroplasty. Review of Systems Constitutional: Patient denies any fever or chills . No generalized weakness or weight loss. Abdomen: Patient denied nausea vomiting and diarrhea and abdominal pain. Cardiovascular: Patient denies any chest pain or short of breath no palpitations. Respiratory: patient denied any cough or sputum production. No shortness of breath Neurologic: Patient denied any numbness or tingling headache. Musculoskeletal: Patient denies any complaints of joint swelling or deformity. Skin: Negative Psychiatric: Negative Endocrine: No heat or cold intolerance. No recent weight gain. Genitourinary: No dysuria or hematuria. All other 14 point ROS negative except the above Past Medical History Past Medical History: GERD/Reflux, Hyperlipidemia, Hypertension, Rheumatoid Arthritis (RA), Thyroid Disorder Additional Past Medical History / Comment(s): "MONOCLONAL GAMMOPATHY" D47.[address] GUADALUPE History of Any Multi-Drug Resistant Organisms: None Reported Past Surgical History: Bladder Surgery, Hysterectomy, Tubal Ligation Additional Past Surgical History / Comment(s): D&C X4 , LEFT BREAST BIOPSY, BLADDER SUSPENSION Past Anesthesia/Blood Transfusion Reactions: No Reported Reaction Past Psychological History: No Psychological Hx Reported Smoking Status: Never smoker Past Alcohol Use History: None Reported Past Drug Use History: None Reported - Past Family History Brother(s) Family Medical History: Cancer, Coronary Artery Disease (CAD) Additional Family Medical History / Comment(s): (4) BROTHERS ALL WITH CANCER Mother Family Medical History: Coronary Artery Disease (CAD), Diabetes Mellitus Father Family Medical History: Coronary Artery Disease (CAD), CVA/TIA Sister(s) Family Medical History: Cancer Medications and Allergies Home Medications Medication Instructions Recorded Confirmed Type Cranberry Fruit Extract [Cranberry] 500 mg PO DAILY 01/22/16 03/23/20 History Levothyroxine Sodium [Synthroid] 88 mcg PO MOTUWETHFRSA 01/22/16 03/23/20 History Multivitamins, Thera [Multivitamin] 1 tab PO DAILY 01/22/16 03/23/20 History Simvastatin [Zocor] 20 mg PO HS 01/22/16 03/23/20 History Omeprazole 20 mg PO QAM 03/18/19 03/23/20 History Calcium Carbonate/Vitamin D3 2 tab PO DAILY 07/29/19 03/23/20 History [Caltrate 600 Plus D3 Tablet] Hydroxychloroquine Sulfate 200 mg PO BID 07/29/19 03/23/20 History [Plaquenil] Latanoprost/Pf [Latanoprost 0.005% 1 drop BOTH EYES HS 09/03/19 03/23/20 History Eye Drop] Hydrochlorothiazide 12.5 mg PO DAILY 03/23/20 03/23/20 History [hydroCHLOROthiazide] Metoprolol Succinate (ER) [Toprol 50 mg PO DAILY 03/23/20 03/23/20 History Xl] traMADol HCL [Ultram] 50 mg PO Q6HR PRN 03/23/20 03/27/20 History Levothyroxine Sodium [Synthroid] 176 mcg PO DIGGS 03/24/20 03/24/20 History Allergies Allergy/AdvReac Type Severity Reaction Status Date / Time Iodinated Contrast Media Allergy Rash/Hives Verified 03/27/20 10:53 [Iodinated Contrast Media - IV Dye] Physical Exam Vitals: Vital Signs Temp Pulse Pulse Resp BP Pulse Ox 03/27/20 16:00 71 18 160/72 97 03/27/20 15:45 82 18 162/70 95 03/27/20 15:30 76 8 L 150/67 97 03/27/20 15:16 65 18 143/65 99 03/27/20 14:58 97 F L 81 14 143/63 100 03/27/20 11:55 76 16 153/69 03/27/20 11:03 98.0 F 74 16 160/71 96 Intake and Output 03/27/20 03/27/20 03/27/20 06:59 14:59 22:59 Intake Total 651 200 Output Total 40 Balance 611 200 Intake: IV 651 200 Output: Estimated Blood Loss 40 Other: Weight 79.379 kg PHYSICAL EXAMINATION: Patient is lying in the bed comfortably, no acute distress, awake alert and oriented.. HEENT: Normocephalic. Neck is supple. Pupils reactive. Nostrils clear. Oral cavity is moist. Ears reveal no drainage. Neck reveals no JVD, carotid bruits, or thyromegaly. CHEST EXAMINATION: Trachea is central. Symmetrical expansion. Lung weeks clear to auscultation and percussion. CARDIAC: Normal S1, S2 with no gallops. No murmurs ABDOMEN: Soft. Bowel sounds normal. No organomegaly. No abdominal bruits. Extremities: reveal no edema. No clubbing or cyanosis Neurologically awake, alert, oriented x3 with well-coordinated movements. No focal deficits noted Skin: No rash or skin lesions. Psychiatric: Coperative. Nonsuicidal Musculoskeletal: No joint swelling or deformity. Normal range of motion. Assessment and Plan Assessment: Status post right total knee arthroplasty postoperative day 0 Uncontrolled hypertension likely due to pain. Started back on home blood pressure medications Rheumatoid arthritis Hyper lipidemia GERD Hypothyroidism History of bladder suspension surgery History of monoclonal gammopathy on follow-up with oncology as an outpatient. DVT prophylaxis Obesity Plan: Patient will be continued on home blood pressure medication in the form of metoprolol and pain management. Patient will be continued on bowel regimen. Continue with other home medications and follow-up closely. Follow-up CBC tomorrow and further recommendations based on the clinical course. Thank you for your consult.
[2020-03-27] MEDS: LATANOPROST 0.005% OPHTH DROPS 2.5 ML BTL BOTH EYES SCH (21:00)
[2020-03-27] MEDS: SENNOSIDES-DOCUSATE SODIUM 1 EACH TAB PO SCH (21:01)
[2020-03-27] MEDS: ATORVASTATIN 10 MG TAB PO SCH (21:01)
[2020-03-27] MEDS: HYDROcodone/APAP 5-325MG 1 EACH TAB PO PRN (21:02)
[2020-03-27] MEDS: HYDROXYCHLOROQUINE SULFATE 200 MG TAB PO SCH (21:03)
[2020-03-28] MEDS: HYDROcodone/APAP 5-325MG 1 EACH TAB PO PRN ×3 (06:03→20:55)
[2020-03-28] MEDS: LACTATED RINGERS 1,000 ML IV SCH (06:05)
[2020-03-28] MEDS: LEVOTHYROXINE 88 MCG TAB PO SCH (06:05)
--- NOTE | 2020-03-28 07:39 | P.PN ---
Progress Note - Text 03/28/20 702am 69-year-old female status post total knee replacement. Patient has an On-Q pump for postop pain control with the solution running at 8 mL an hour with a VAS of 8. Patient has been receiving oral narcotics for postop pain control. I asked the nurse to increase the rate to 10 mL an hour and reevaluated. Plan to continue infusion
--- NOTE | 2020-03-28 07:44 | P.ANPRN ---
Procedure Note - Anesthesia - Nerve Block Performed Right Adductor Canal Infusion Time Out Performed: Yes Date of Procedure: 03/27/20 Procedure Start Time: 11:41 Procedure Stop Time: 11:52 Location of Patient: PreOp Indication: Acute Post-Operative Pain, Requested by Surgeon Sedation Type: Sedate with meaningful contact maintained Preparation: Sterile Prep, Sterile Dressing Position: Supine Catheter: Indwelling Needle Types: Pajunk Needle Gauge: 21 Ultrasound used to visualize needle placement: Yes Ultrasound used to observe medication spread: Yes Blood Aspirated: No Pain Paresthesia on Injection Noted: No Resistance on Injection: Normal Image Stored and Saved: Yes Events: Uneventful and Well Tolerated (Ropivacaine 0.5% 20 mL plus dexamethasone 4 mg)
[2020-03-28] MEDS: MULTIVITAMINS, THERA 1 EACH TAB PO SCH (08:53)
[2020-03-28] MEDS: ENOXAPARIN 30 MG/0.3 ML SYRINGE SQ SCH ×2 (08:53→20:55)
[2020-03-28] MEDS: METOPROLOL SUCCINATE (ER) 50 MG TAB.ER.24H PO SCH (08:53)
[2020-03-28] MEDS: CALCIUM CARB-VIT D 500 MG-5 MCG TAB PO SCH (08:53)
[2020-03-28] MEDS: PANTOPRAZOLE 40 MG TABLET PO SCH (08:53)
[2020-03-28] MEDS: HYDROXYCHLOROQUINE SULFATE 200 MG TAB PO SCH ×2 (08:59→20:54)
[2020-03-28 09:48] LABS: Basophils # (A) 0.01 X 10*3/uL (0.00-0.10); Basophils % (A) 0.1 %; Eosinophils # (A) 0 X 10*3/uL (0.04-0.35); Eosinophils % (A) 0 %; HCT 31.2 % (37.2-46.3); HGB 10.5 g/dL (12.0-15.0); Lymphocytes # (A) 1.25 X 10*3/uL (0.90-5.00); Lymphocytes % (A) 8.8 %; MCH 31.4 pg (27.0-32.0); MCHC 33.7 g/dL (32.0-37.0); MCV 93.4 fL (80.0-97.0); Mean Platelet Volume 10.7 fL (9.5-12.2); Monocytes # (A) 1.27 X 10*3/uL (0.20-1.00); Monocytes % (A) 8.9 %; Neutrophils # (A) 11.63 X 10*3/uL (1.80-7.70); Neutrophils % (A) 81.8 %; Platelet Count 390 X 10*3/uL (140-440); RBC 3.34 X 10*6/uL (4.10-5.20); WBC 14.22 X 10*3/uL (4.50-10.00)
[2020-03-28 10:19] LABS: African American GFR (CKD) >90 (>60 ml/min/1.73 sqM); Anion Gap 10 mmol/L; Blood Urea Nitrogen 25 mg/dL (7-17); Calcium 9.5 mg/dL (8.4-10.2); Carbon Dioxide 26 mmol/L (22-30); Chloride 98 mmol/L (98-107); Glucose 126 mg/dL (74-99); Non-African American GFR(CKD) 90 (>60 ml/min/1.73 sqM); Sodium 134 mmol/L (137-145)
--- NOTE | 2020-03-28 12:00 | P.PN ---
Subjective Progress Note Date: 03/28/20 Principal diagnosis: Status post right total knee arthroplasty Patient evaluated at bedside today, she is resting in her hospital bed. She is having quite a bit of discomfort the bilateral knees today. She does have a history of rheumatoid arthritis, she's been off her medication prior to surgery. Patient denies any headaches, lightheadedness, chest pain, shortness of breath. Objective - Vital Signs Vital signs: Vital Signs Temp 97.4 F L 03/28/20 07:18 Pulse 64 03/28/20 07:18 Resp 18 03/28/20 09:42 BP 123/71 03/28/20 07:18 Pulse Ox 95 03/28/20 07:18 Intake & Output 03/27/20 03/28/20 03/28/20 18:59 06:59 18:59 Intake Total 851 Output Total 40 Balance 811 Weight 79.379 kg Intake: IV 851 Output: Estimated Blood Loss 40 Other: Voiding Method Toilet Toilet # Voids 1 1 - Exam Right lower extremity: Incision is clean, dry, and intact. The foam dressing is in good condition. There is minimal soft tissue swelling and ecchymosis surrounding the medial and lateral aspects of the incision. Calf is soft, no tenderness with palpation. Plantar flexion, dorsiflexion, EHL, FHL are intact. Sensory exam to light touch throughout the extremity is intact, dorsal pedis pulses 2+. - Labs CBC & Chem 7: 03/28/20 06:01 03/28/20 06:39 Labs: Abnormal Lab Results - Last 24 Hours (Table) 03/28/20 03/28/20 Range/Units 06:01 06:39 WBC 14.22 H (4.50-10.00) X 10*3/uL RBC 3.34 L (4.10-5.20) X 10*6/uL Hgb 10.5 L (12.0-15.0) g/dL Hct 31.2 L (37.2-46.3) % Immature Gran # 0.06 H (0.00-0.04) X 10*3/uL Neutrophils # 11.63 H (1.80-7.70) X 10*3/uL Monocytes # 1.27 H (0.20-1.00) X 10*3/uL Eosinophils # 0 L (0.04-0.35) X 10*3/uL Sodium 134 L (137-145) mmol/L BUN 25 H (7-17) mg/dL Glucose 126 H (74-99) mg/dL Assessment and Plan Assessment: Status post right total knee arthroplasty Plan: Pain control, continue oral medication. Discussed the patient IV pain medication is available Wound care discussed Icing and elevating technique discussed PT evaluation, walker when ambulating DVT prophylaxis, continue current medication Medical recommendations Plan for discharge to home tomorrow Time with Patient: Less than 30
--- NOTE | 2020-03-28 16:31 | P.PN ---
Subjective Progress Note Date: 03/28/20 - Reason for Consult Consult date: 03/27/20 Medical Management - Chief Complaint S/p right total knee arthroplasty. - History of Present Illness Patient is a 69-year-old female with a known history of osteoarthritis, hypertension, hyperlipidemia, rheumatoid arthritis currently on Plaquenil and hypothyroidism was admitted to hospital for right total knee arthroplasty. Patient is currently able to sit in the chair and walking with a walker. Pain is controlled at this time. Postoperatively blood pressures elevated with SBP in 170s. Denied any complaints of chest pain or shortness of breath. No cough or sputum production. No fever no chills. No nausea vomiting or abdominal pain or diarrhea. No dysuria or hematuria. Knee x-ray showed uncomplicated postoperative appearance right total knee arthroplasty. 03/28/2020 Patient is seen and evaluated in follow-up with no acute overnight issues. Patient is status post right total knee arthroplasty and being closely monitored. Incentive spirometer at the bedside and patient continues to use at least 10 times every hour while awake. Continue to encourage activity as tolerated. Family member at the bedside. Will resume home medication. Will discontinue IV fluids. Sodium today is 134 with a potassium of 4.0 and current creatinine is 0.65. White blood count most likely reactive in is 14.2 to with a hemoglobin of 10.5. Will repeat CBC in the morning. Case management following as patient will likely be going home and may need home care in the outpatient setting. Review of systems: Constitutional: No reports of fatigue, fever, or chills Cardiovascular: No reports of chest pain or palpitations Respiratory: No reports of shortness of breath or cough GI: No reports of nausea, vomiting, or diarrhea : No reports of dysuria or retention Neurovascular: No reports of weakness or numbness, generalized discomfort of the right knee with ice pack noted on exam All medications have been reviewed Objective - Vital Signs Vital signs: Vital Signs Temp 97.9 F 03/28/20 13:42 Pulse 61 03/28/20 13:42 Resp 17 03/28/20 13:42 BP 118/71 03/28/20 13:42 Pulse Ox 98 03/28/20 13:42 Intake & Output 03/27/20 03/28/20 03/28/20 18:59 06:59 18:59 Intake Total 851 200 Output Total 40 Balance 811 200 Weight 79.379 kg Intake: IV 851 Oral 200 Output: Estimated Blood Loss 40 Other: Voiding Method Toilet Toilet # Voids 1 1 - Exam Patient is sitting up in the chair comfortably bilateral lower extremities elevated, no acute distress, awake alert and oriented.. HEENT: Normocephalic. Neck is supple. Pupils reactive. Nostrils clear. Oral cavity is moist. Ears reveal no drainage. Neck reveals no JVD, carotid bruits, or thyromegaly. CHEST EXAMINATION: Trachea is central. Symmetrical expansion. Lung weeks clear to auscultation and percussion. CARDIAC: Normal S1, S2 with no gallops. No murmurs ABDOMEN: Soft. Nontender. Bowel sounds normal. No organomegaly. No abdominal bruits. Extremities: reveal no edema. No clubbing or cyanosis . SCDs noted Neurologically awake, alert, oriented x3 with well-coordinated movements. No focal deficits noted Skin: No rash or skin lesions. Right knee surgical dressing is dry and intact with an ice pack noted on exam. Psychiatric: Cooperative. Non-suicidal Musculoskeletal: No joint swelling or deformity. Normal range of motion. - Labs CBC & Chem 7: 03/28/20 06:01 03/28/20 06:39 Labs: Abnormal Lab Results - Last 24 Hours (Table) 03/28/20 03/28/20 Range/Units 06:01 06:39 WBC 14.22 H (4.50-10.00) X 10*3/uL RBC 3.34 L (4.10-5.20) X 10*6/uL Hgb 10.5 L (12.0-15.0) g/dL Hct 31.2 L (37.2-46.3) % Immature Gran # 0.06 H (0.00-0.04) X 10*3/uL Neutrophils # 11.63 H (1.80-7.70) X 10*3/uL Monocytes # 1.27 H (0.20-1.00) X 10*3/uL Eosinophils # 0 L (0.04-0.35) X 10*3/uL Sodium 134 L (137-145) mmol/L BUN 25 H (7-17) mg/dL Glucose 126 H (74-99) mg/dL Assessment and Plan Assessment: Status post right total knee arthroplasty postoperative day 1 Uncontrolled hypertension likely due to pain. Started back on home blood pressure medications, will resume hydrochlorothiazide. IV fluids discontinued Mild leukocytosis most likely reactive, will repeat CBC Rheumatoid arthritis Hyperlipidemia GERD Hypothyroidism History of bladder suspension surgery History of monoclonal gammopathy on follow-up with oncology as an outpatient. DVT prophylaxis Obesity Plan: Patient will be continued on home blood pressure medication in the form of metoprolol and pain management. Hydrochlorothiazide being resumed. Will discontinue IV fluids. Patient will be continued on bowel regimen. Continue with other home medications and follow-up closely. Follow-up CBC tomorrow and further recommendations based on the clinical course. Possible discharge in 24 hours. Thank you for this consult and will continue to follow along with you during hospitalization.
[2020-03-28] MEDS: SENNOSIDES-DOCUSATE SODIUM 1 EACH TAB PO SCH (20:54)
[2020-03-28] MEDS: LATANOPROST 0.005% OPHTH DROPS 2.5 ML BTL BOTH EYES SCH (20:55)
[2020-03-28] MEDS: ATORVASTATIN 10 MG TAB PO SCH (20:55)
[2020-03-29] MEDS: LEVOTHYROXINE 88 MCG TAB PO SCH (05:45)
[2020-03-29] MEDS: HYDROcodone/APAP 5-325MG 1 EACH TAB PO PRN ×2 (05:45→12:28)
--- NOTE | 2020-03-29 08:29 | P.DS ---
Providers Date of admission: 03/27/2020 Expected date of discharge: 03/29/20 Attending physician: Ulices Reveles Consults: 03/27/20 14:47 Consult Physician Routine Consulting Provider: Shira Bowens Consult Reason/Comments: Medical management Do you want consulting provider notified?: Yes Primary care physician: Selena Elvira [facility] Course: Date of admission: 03/27/2020 Date of discharge: 03/29/2020 Admission diagnosis: Status post right total knee arthroplasty Discharge diagnosis: Same Attending physician: Dr. Reveles Surgical procedures: Right total knee arthroplasty Brief history: Patient is a 69-year-old female with a history of progressive primary right knee osteoarthritis. At this point patient has failed conservative treatment measures and has opted to proceed with a elective right total knee arthroplasty Hospital course: Details of patient's surgery can be found in operative report. Patient tolerated the procedure well and was subsequently transported to orthopedic floor. Patient's orthopeidc and medical care was provided daily. Patient had daily laboratory tests performed for evaluation of overall blood counts. Patient had daily physical therapy to include strengthening range of motion as well as education with walker ambulation. Patient was treated with Lovenox for their postoperative DVT prophylaxis during their inpatient stay. Patient was noted to have a relatively uneventful postoperative course. Patient reported satisfactory pain control with oral pain medications by postoperative day 0. Patient showed satisfactory progress with physical therapy. Patient moved steadily through the program and had no difficulty meeting the goals by postoperative day 2. Given patient's otherwise satisfactory course and having met physical therapy goals, plan is to discharge patient home on postoperative day 2. Discharge condition/disposition: Patient will be discharged home in stable condition. Discharge medications: Instructions are given on resumption of patient's normal daily medications per primary care recommendation, in addition patient will be prescribed [place] 7.5 mg/325 mg, Colace 100 mg, aspirin 81 mg. Discharge instructions: 1. Wound care and infection precautions, keep incision dry and covered while showering, no lotions, creams, moisturizers. No soaking, tubs, pools, hottubs. Do not scrub over the incision. 2. Weight-bear as tolerated with walker / cane until follow-up. 3. Ice and elevate when necessary. Do not exceed 20 minutes per hour with ice pack. 4. Utilize compression sleeve until seen at first follow up appointment. 5. Visiting nursing care. 6. Home physical therapy including home CPM. 7. Pain meds and anticoagulants per prescription. 8. Pain medication has potential to cause constipation. Increase oral fluid and fiber intake. Contact primary care provider if you have not had a bowel movement within 48 hours after discharge 9. No anti-inflammatory medication until discussed at first post operative visit, this including Motrin, Aleve, Mobic, Diclofenac 10. Follow up in office at 2 weeks postop with Jordan Garcia PA-C 11. Follow up with your primary care doctor 7-10 days after discharge. 12. Contact [facility] with any questions, . Procedures: Right total knee arthroplasty Patient Condition at Discharge: Good Plan - Discharge Summary Discharge Rx Participant: No New Discharge Prescriptions: New Aspirin [Adult Low Dose Aspirin EC] 81 mg PO BID #60 tablet. Docgeraldinete [Colace] 100 mg PO DAILY #30 capsule HYDROcodone/APAP 7.5-325MG [[place] 7.5] 1 - 2 each PO Q6HR PRN #42 tab PRN Reason: Pain No Action Levothyroxine Sodium [Synthroid] 88 mcg PO MOTUWETHFRSA Multivitamins, Thera [Multivitamin] 1 tab PO DAILY Simvastatin [Zocor] 20 mg PO HS Cranberry Fruit Extract [Cranberry] 500 mg PO DAILY Omeprazole 20 mg PO QAM Hydroxychloroquine Sulfate [Plaquenil] 200 mg PO BID Calcium Carbonate/Vitamin D3 [Caltrate 600 Plus D3 Tablet] 2 tab PO DAILY Latanoprost/Pf [Latanoprost 0.005% Eye Drop] 1 drop BOTH EYES HS Metoprolol Succinate (ER) [Toprol Xl] 50 mg PO DAILY traMADol HCL [Ultram] 50 mg PO Q6HR PRN PRN Reason: Pain Hydrochlorothiazide [hydroCHLOROthiazide] 12.5 mg PO DAILY Levothyroxine Sodium [Synthroid] 176 mcg PO DIGGS Discharge Medication List Cranberry Fruit Extract [Cranberry] 500 mg PO DAILY 01/22/16 [History] Levothyroxine Sodium [Synthroid] 88 mcg PO MOTUWETHFRSA 01/22/16 [History] Multivitamins, Thera [Multivitamin] 1 tab PO DAILY 01/22/16 [History] Simvastatin [Zocor] 20 mg PO HS 01/22/16 [History] Omeprazole 20 mg PO QAM 03/18/19 [History] Calcium Carbonate/Vitamin D3 [Caltrate 600 Plus D3 Tablet] 2 tab PO DAILY 07/29/19 [History] Hydroxychloroquine Sulfate [Plaquenil] 200 mg PO BID 07/29/19 [History] Latanoprost/Pf [Latanoprost 0.005% Eye Drop] 1 drop BOTH EYES HS 09/03/19 [History] Hydrochlorothiazide [hydroCHLOROthiazide] 12.5 mg PO DAILY 03/23/20 [History] Metoprolol Succinate (ER) [Toprol Xl] 50 mg PO DAILY 03/23/20 [History] traMADol HCL [Ultram] 50 mg PO Q6HR PRN 03/23/20 [History] Levothyroxine Sodium [Synthroid] 176 mcg PO DIGGS 03/24/20 [History] Aspirin [Adult Low Dose Aspirin EC] 81 mg PO BID #60 tablet. 03/29/20 [Rx] Docusate [Colace] 100 mg PO DAILY #30 capsule 03/29/20 [Rx] HYDROcodone/APAP 7.5-325MG [[place] 7.5] 1 - 2 each PO Q6HR PRN #42 tab 03/29/20 [Rx] Follow up Appointment(s)/Referral(s): Selena Felix MD [Primary Care Provider] - 1 Week Black Garcia PAC [PHYSICIAN MACHINE [employer]] - 04/12/20 2:30 pm [facility] [NON[facility]STAFF] - ([facility] will call to set up your first visit. Your first visit should be on 03/28/2020.) Activity/Diet/Wound Care/Special Instructions: Orthopedic Discharge Instructions: 1. Wound care and infection precautions, keep incision dry and covered while showering, no lotions, creams, moisturizers. No soaking, pools, hot tubs. Do not scrub over incision. 2. Weight-bear as tolerated with walker / cane until follow-up. 3. Ice and elevate when necessary. Do not exceed 20 minutes per hour with ice pack. 4. Utilize compression sleeve until seen at first follow up appointment. 5. Pain meds and anticoagulants per prescription. 6. Pain medication has potential to cause constipation. Increase oral fluid and fiber intake. Contact primary care provider if you have not had a bowel movement within 48 hours after discharge. 7. No anti-inflammatory medication until discussed at first post operative visit, this including Motrin, Aleve, Mobic, Diclofenac. 8. Follow up in office at 2 weeks postop with Jordan Garcia PA-C 9. Follow up with your primary care doctor 7-10 days after discharge. 10. Contact [facility] with any questions, . Wound care instructions: 1. Okay to remove foam dressing on 04/03/2020 2. Keep home dressing covered and dry while showering 3. Okay to shower over the incision after removal of the dressing Discharge Disposition: HOME WITH HOME HEALTH SERVICES
--- NOTE | 2020-03-29 08:29 | P.PN ---
Subjective Progress Note Date: 03/29/20 Principal diagnosis: Status post right total knee arthroplasty Patient evaluated at bedside today, she is resting in her hospital bed. Pain is better controlled today. She is continuing to do the exercises and work with physical therapy. Patient denies any headaches, lightheadedness, chest pain, shortness of breath. Objective - Vital Signs Vital signs: Vital Signs Temp 98.1 F 03/29/20 02:11 Pulse 71 03/29/20 02:11 Resp 16 03/29/20 02:11 BP 107/63 03/29/20 02:11 Pulse Ox 95 03/29/20 02:11 Intake & Output 03/28/20 03/29/20 03/29/20 18:59 06:59 18:59 Intake Total 450 1140 Balance 450 1140 Intake: Intake, IV Titration 890 Amount Lactated Ringers 1,000 ml 840 @ 70 mls/hr IV .[id number] MARLEN Rx#:[id number] ceFAZolin 2 gm In Sodium 50 Chloride 0.9% 50 ml @ 100 mls/hr IVPB Q8H MARLEN Rx#: [id number] Oral 450 250 Other: Voiding Method Toilet Toilet # Voids 2 1 - Exam Right lower extremity: Incision is clean, dry, and intact. The foam dressing is in good condition. There is minimal soft tissue swelling and ecchymosis surrounding the medial and lateral aspects of the incision. Calf is soft, no tenderness with palpation. Plantar flexion, dorsiflexion, EHL, FHL are intact. Sensory exam to light touch throughout the extremity is intact, dorsal pedis pulses 2+. - Labs CBC & Chem 7: 03/28/20 06:01 03/28/20 06:39 Labs: Abnormal Lab Results - Last 24 Hours (Table) 03/28/20 03/28/20 Range/Units 06:01 06:39 WBC 14.22 H (4.50-10.00) X 10*3/uL RBC 3.34 L (4.10-5.20) X 10*6/uL Hgb 10.5 L (12.0-15.0) g/dL Hct 31.2 L (37.2-46.3) % Immature Gran # 0.06 H (0.00-0.04) X 10*3/uL Neutrophils # 11.63 H (1.80-7.70) X 10*3/uL Monocytes # 1.27 H (0.20-1.00) X 10*3/uL Eosinophils # 0 L (0.04-0.35) X 10*3/uL Sodium 134 L (137-145) mmol/L BUN 25 H (7-17) mg/dL Glucose 126 H (74-99) mg/dL Assessment and Plan Assessment: Status post right total knee arthroplasty Plan: Pain control, [place] 7.5 mg/325 mg at discharge Wound care discussed Icing and elevating technique discussed PT evaluation, walker when ambulating DVT prophylaxis, aspirin 81 mg 1 month Medical recommendations Discharge home today Time with Patient: Less than 30
[2020-03-29] MEDS: ENOXAPARIN 30 MG/0.3 ML SYRINGE SQ SCH (08:48)
[2020-03-29] MEDS: METOPROLOL SUCCINATE (ER) 50 MG TAB.ER.24H PO SCH (08:50)
[2020-03-29] MEDS: CALCIUM CARB-VIT D 500 MG-5 MCG TAB PO SCH (08:50)
[2020-03-29] MEDS: PANTOPRAZOLE 40 MG TABLET PO SCH (08:50)
[2020-03-29] MEDS: HYDROXYCHLOROQUINE SULFATE 200 MG TAB PO SCH (08:51)
[2020-03-29] MEDS: MULTIVITAMINS, THERA 1 EACH TAB PO SCH (08:56)
[2020-03-29 08:58] VITALS: BP 106/57; PULSE 76; RESP 17; TEMP 97.7
[2020-03-29] MEDS ORDERED: hydroCHLOROthiazide 12.5 MG CAP PO SCH (09:00)
--- NOTE | 2020-03-29 13:47 | P.PN ---
Subjective Progress Note Date: 03/29/20 - Reason for Consult Consult date: 03/27/20 Medical Management - Chief Complaint S/p right total knee arthroplasty. - History of Present Illness Patient is a 69-year-old female with a known history of osteoarthritis, hypertension, hyperlipidemia, rheumatoid arthritis currently on Plaquenil and hypothyroidism was admitted to hospital for right total knee arthroplasty. Patient is currently able to sit in the chair and walking with a walker. Pain is controlled at this time. Postoperatively blood pressures elevated with SBP in 170s. Denied any complaints of chest pain or shortness of breath. No cough or sputum production. No fever no chills. No nausea vomiting or abdominal pain or diarrhea. No dysuria or hematuria. Knee x-ray showed uncomplicated postoperative appearance right total knee arthroplasty. 03/28/2020 Patient is seen and evaluated in follow-up with no acute overnight issues. Patient is status post right total knee arthroplasty and being closely monitored. Incentive spirometer at the bedside and patient continues to use at least 10 times every hour while awake. Continue to encourage activity as tolerated. Family member at the bedside. Will resume home medication. Will discontinue IV fluids. Sodium today is 134 with a potassium of 4.0 and current creatinine is 0.65. White blood count most likely reactive in is 14.2 to with a hemoglobin of 10.5. Will repeat CBC in the morning. Case management following as patient will likely be going home and may need home care in the outpatient setting. 03/29/2020 She is seen this morning awaiting to be discharged. Patient states she is going home today and awaiting for her to arrive. Patient states she was having some increased right knee pain and took pain medications this morning on an empty stomach and felt nauseated. Given Zofran and will prescribe to her pharmacy. Patient blood pressure medications have been resumed and instructed to follow-up with primary care provider outpatient. Patient will be having home care and rehab in the home setting. Case management has made arrangements. Surgical site of the right knee appears dry and intact with no increased redness or swelling surrounding the dressing. She reports to passing gas and had a large bowel movement last night. Review of systems: Constitutional: No reports of fatigue, fever, or chills Cardiovascular: No reports of chest pain or palpitations Respiratory: No reports of shortness of breath or cough GI: No reports of nausea, vomiting, or diarrhea : No reports of dysuria or retention Neurovascular: No reports of weakness or numbness, generalized discomfort of the right knee with ice pack noted on exam All medications have been reviewed Objective - Vital Signs Vital signs: Vital Signs Temp 97.7 F 03/29/20 08:00 Pulse 76 03/29/20 08:00 Resp 17 03/29/20 08:00 BP 106/57 03/29/20 08:00 Pulse Ox 94 L 03/29/20 08:00 Intake & Output 03/28/20 03/29/20 03/29/20 18:59 06:59 18:59 Intake Total 450 1140 Balance 450 1140 Intake: Intake, IV Titration 890 Amount Lactated Ringers 1,000 ml 840 @ 70 mls/hr IV .[id number] MARLEN Rx#:[id number] ceFAZolin 2 gm In Sodium 50 Chloride 0.9% 50 ml @ 100 mls/hr IVPB Q8H MARLEN Rx#: [id number] Oral 450 250 Other: Voiding Method Toilet Toilet # Voids 2 1 - Exam Patient is sitting up in the chair comfortably bilateral lower extremities elevated, no acute distress, awake alert and oriented.. HEENT: Normocephalic. Neck is supple. Pupils reactive. Nostrils clear. Oral cavity is moist. Ears reveal no drainage. Neck reveals no JVD, carotid bruits, or thyromegaly. CHEST EXAMINATION: Trachea is central. Symmetrical expansion. Lung weeks clear to auscultation and percussion. CARDIAC: Normal S1, S2 with no gallops. No murmurs ABDOMEN: Soft. Nontender. Bowel sounds normal. No organomegaly. No abdominal bruits. Extremities: reveal no edema. No clubbing or cyanosis . SCDs noted Neurologically awake, alert, oriented x3 with well-coordinated movements. No focal deficits noted Skin: No rash or skin lesions. Right knee surgical dressing is dry and intact with an ice pack noted on exam. Psychiatric: Cooperative. Non-suicidal Musculoskeletal: No joint swelling or deformity. Normal range of motion. - Labs CBC & Chem 7: 03/28/20 06:01 03/28/20 06:39 Labs: Abnormal Lab Results - Last 24 Hours (Table) 03/28/20 03/28/20 Range/Units 06:01 06:39 WBC 14.22 H (4.50-10.00) X 10*3/uL RBC 3.34 L (4.10-5.20) X 10*6/uL Hgb 10.5 L (12.0-15.0) g/dL Hct 31.2 L (37.2-46.3) % Immature Gran # 0.06 H (0.00-0.04) X 10*3/uL Neutrophils # 11.63 H (1.80-7.70) X 10*3/uL Monocytes # 1.27 H (0.20-1.00) X 10*3/uL Eosinophils # 0 L (0.04-0.35) X 10*3/uL Sodium 134 L (137-145) mmol/L BUN 25 H (7-17) mg/dL Glucose 126 H (74-99) mg/dL Assessment and Plan Assessment: Status post right total knee arthroplasty postoperative day 2 Uncontrolled hypertension likely due to pain. Home blood pressure medications resumed Mild leukocytosis most likely reactive Rheumatoid arthritis Hyperlipidemia GERD Hypothyroidism History of bladder suspension surgery History of monoclonal gammopathy on follow-up with oncology as an outpatient. DVT prophylaxis Obesity Plan: Patient will be continued on home blood pressure medication in the form of metoprolol and pain management. Hydrochlorothiazide resumed. Patient will be continued on bowel regimen. Patient reports to passing gas and had a large bowel movement last night. Reports some nausea this morning although she feels that was most likely due to taking medications on an empty stomach. Zofran ordered as needed sublingual. Continue with other home medications and follow- up closely. Further recommendations based on the clinical course. She states she is being discharged today and waiting for her to arrive. Homecare and rehab has been arranged by case management. Thank you for this consult and will continue to follow along with you during hospitalization.
[2020-03-29 14:53] LABS: Basophils # (A) 0.03 X 10*3/uL (0.00-0.10); Basophils % (A) 0.3 %; Eosinophils # (A) 0.01 X 10*3/uL (0.04-0.35); Eosinophils % (A) 0.1 %; HCT 25.7 % (37.2-46.3); HGB 8.5 g/dL (12.0-15.0); Lymphocytes # (A) 2.14 X 10*3/uL (0.90-5.00); Lymphocytes % (A) 23.3 %; MCH 31.5 pg (27.0-32.0); MCHC 33.1 g/dL (32.0-37.0); MCV 95.2 fL (80.0-97.0); Mean Platelet Volume 10.9 fL (9.5-12.2); Monocytes # (A) 1.43 X 10*3/uL (0.20-1.00); Monocytes % (A) 15.6 %; Neutrophils # (A) 5.55 X 10*3/uL (1.80-7.70); Neutrophils % (A) 60.5 %; Platelet Count 292 X 10*3/uL (140-440); RDW 12.6 % (11.5-14.5); WBC 9.18 X 10*3/uL (4.50-10.00)
[2020-04-02] MEDS ORDERED: LEVOTHYROXINE 88 MCG TAB PO SCH (06:30)
== END 2020-03-29 13:20 | disposition home health service (06) ==
LOC: OR 10:15 → 4SSUR 14:31 → OR 03-29 13:20
PROVIDERS: ATTEND Orthopaedic Surgery
DX: M17.11 Unilateral primary osteoarthritis, right knee (principal); I10 Essential (primary) hypertension; L92.0 Granuloma annulare; E78.5 Hyperlipidemia, unspecified; E03.9 Hypothyroidism, unspecified; D72.829 Elevated white blood cell count, unspecified; E66.9 Obesity, unspecified; Z68.30 Body mass index [BMI] 30.0-30.9, adult; D47.2 Monoclonal gammopathy; M35.3 Polymyalgia rheumatica; R11.0 Nausea; K21.9 Gastro-esophageal reflux disease without esophagitis; Z90.710 Acquired absence of both cervix and uterus; Z98.890 Other specified postprocedural states; Z98.51 Tubal ligation status; Z82.49 Family history of ischemic heart disease and other diseases of the circulatory system; Z80.9 Family history of malignant neoplasm, unspecified; Z83.3 Family history of diabetes mellitus; Z82.3 Family history of stroke; Z79.890 Hormone replacement therapy; Z79.899 Other long term (current) drug therapy; Z79.891 Long term (current) use of opiate analgesic; Z91.041 Radiographic dye allergy status
CPT/HCPCS: 97116; 97110; 97161; 64448; 76942; 80048; 85025 ×2; 88300; 73560; 27447; C1776; C1713; J2250; J1100; J0690 ×3; J2405; J1650 ×2; J2704; J2795

== ENCOUNTER → 2020-06-22 | Outpatient (CLI) | payer MEDICARE, OTHER ==
--- NOTE | 2020-06-22 09:34 | US ---
EXAMINATION TYPE: US pelvis complete transvag DATE OF EXAM: 06/22/2020 COMPARISON: Prior pelvic ultrasound May 01, 2018 CLINICAL HISTORY: R10.9 abdominal pain. Generalized pelvic pain. Uterus removed x 2011 TECHNIQUE: Transvaginal (TV) and Transabdominal (TA) . Transabdominal sonographic images of the pel vis were acquired. Transvaginal sonographic images were medically necessary to better assess the fol lowing anatomy: Ovaries Date of LMP: Unknown EXAM MEASUREMENTS: Right Ovary: 1.7 x 1.0 x 1.2 cm 1. Uterus: Surgically absent 2. Endometrium: Surgically absent 3. Right Ovary: Small in size 4. Left Ovary: Obscured by overlying bowel gas 5. Bilateral Adnexa: wnl, bowel seen 6. Posterior cul-de-sac: no free fluid Right ovary small in size correlates with patient's postmenopausal age, no significant change from pr ior. IMPRESSION: No new adnexal masses.
== END | disposition home or self-care (01) ==
LOC: RADUSWWP 08:38
PROVIDERS: ATTEND Obstetrics & Gynecology
DX: R10.9 Unspecified abdominal pain (principal)
CPT/HCPCS: 76830; 76856

== ENCOUNTER → 2020-06-23 | Outpatient (CLI) | payer MEDICARE, OTHER ==
[2020-06-23 12:18] VITALS: BP 161/79; PULSE 76; RESP 14; TEMP 97.8
--- NOTE | 2020-06-23 12:40 | P.PN ---
Subjective Progress Note Date: 06/23/20 Principal diagnosis: fibrocystic breast changes/surveillance Padmini is a 70-year-old white female being followed for fibrocystic breast changes. She is not complaining of any lumps masses or nodules in either breast. She is not complaining of any nipple discharge of concern. [place] [id number] which was benign. She has also had prior stereotactic core biopsy of the left breast which was benign. Her most recent mammogram was bilateral on [id number]. This was benign BIRADS 2. A routine screening of both breasts in 1 year was recommended. The patient has been diagnosed with polymyalgia rheumatica 2018, and follows with Dr. Nelson. She has a known monoclonal gammopathy however has not been diagnosed with multiple myeloma herself. Patient has had approximately 30 pound weight loss over the past 4 months related to coming off of steroid medication which she had been on for arthritis. caffeine: none smoke: none chocolate: occasional Family History: brother: liver cancer sister: multipe myloma, colon cancer brother: stomach cancer brother: prostate cancer brother: multiple myloma Hormonal History: menarche: 12 , 4 miscarriages, first born at 18. breast fed:no menopause: 47 BCP: no hormones: < 1 year Surgical History: 1. D&C,s 2. bladder suspension 3. partial hysterectomy Medical History: 1. polymalgia rheumatica 2. monoclonal gammonopathy (last seen be Dr. Nelson April 21, 2020) Social History: smoke: none alcohol: none drugs: none - Constitutional Constitutional: Denies chills, Denies fever - EENT Comment: freckle right eye, increased pressure in eyes Eyes: right decreased vision Ears: deny: decreased hearing, tinnitus Ears, nose, mouth and throat: Denies headache, Denies sore throat - Breasts Breasts: bilateral: as per HPI - Cardiovascular Cardiovascular: Denies chest pain, Denies shortness of breath - Respiratory Respiratory: Denies cough - Gastrointestinal Gastrointestinal: Denies abdominal pain, Denies diarrhea, Denies nausea, Denies vomiting - Genitourinary (Female) Genitourinary: Denies dysuria, Denies hematuria - Menstruation Menstruation: Reports post hysterectomy, Reports postmenopausal - Musculoskeletal Comment: PMR, on steroids for 8 months - Integumentary Integumentary: Denies pruritus, Denies rash - Neurological Neurological: Denies numbness, Denies weakness - Psychiatric Psychiatric: Denies anxiety, Denies depression - Endocrine Comment: hypothyroid Endocrine: Denies fatigue, Denies weight change - Hematologic/Lymphatic Comment: none - Allergic/Immunologic Allergic/Immunologic: Reports as per HPI Objective - Vital Signs Vital signs: Vital Signs Temp 97.8 F 06/23/20 12:08 Pulse 76 06/23/20 12:08 Resp 14 06/23/20 12:08 BP 161/79 06/23/20 12:08 Pulse Ox 100 06/23/20 12:08 Intake & Output 06/22/20 06/23/20 06/23/20 18:59 06:59 18:59 Weight 72.575 kg - Exam BMI 27.5 - Constitutional General appearance: Present: average body habitus - EENT ENT: Present: hearing grossly normal - Neck Neck: Present: normal ROM - Respiratory Respiratory: bilateral: CTA - Cardiovascular Rhythm: regular Heart sounds: normal: S1, S2 - Gastrointestinal General gastrointestinal: Present: soft - Integumentary Integumentary Comment(s): bilateral ankle swelling - Musculoskeletal Musculoskeletal Comment(s): arthritis affects gait, right knee replacement - Psychiatric Psychiatric: Present: A&O x's 3, appropriate affect, intact judgment & insight - Additional findings Additional findings: Breast exam: BRA: 36B inspection: Bilateral grade 3 ptosis Palpation: Right breast: Multiple positional exam fibrocystic changes, no dominant masses or nodules of concern Right axilla: No adenopathy of concern Left breast: Well-healed scar from prior biopsy, no dominant masses or nodules of concern fibrocystic changes Left axilla: No adenopathy of concern Under each breast mild fungal infection Assessment and Plan Assessment: Impression: 1. polymalgia rheumatica 2. monoclonal gammonopathy (last seen be Dr. Nelson April 21, 2020) 3. Polycystic breast changes nothing to warrant biopsy at this time 4. Bilateral mammogram performed in January 2020 benign BIRADS 2 repeat in 1 year 4. Fibrocystic breast changes 5. Strong family history of cancer with a brother and sister both with multiple myeloma patient follows closely with Dr. Nelson Plan: 1. Repeat bilateral mammogram in January 2021 with physician exam at that time 2. Nystatin cream applied to areas under breast that are affected 3. Continue to follow with Dr. Nelson 4. Follow-up. If any questions or concerns 5. Arthritis management as per Dr. Rodriguez ([facility]) CC:
== END ==
LOC: WWCWWP 11:42
PROVIDERS: ATTEND Surgery
DX: N60.11 Diffuse cystic mastopathy of right breast (principal); N60.12 Diffuse cystic mastopathy of left breast; D47.2 Monoclonal gammopathy; M35.3 Polymyalgia rheumatica; Z80.7 Family history of other malignant neoplasms of lymphoid, hematopoietic and related tissues

== ENCOUNTER → 2020-08-28 | Outpatient (CLI) | payer MEDICARE, OTHER ==
--- NOTE | 2020-08-29 03:09 | MR ---
EXAMINATION TYPE: MR shoulder RT wo con DATE OF EXAM: 08/28/2020 COMPARISON: None HISTORY: Right shoulder pain x several weeks Multiplanar multiecho imaging of the right shoulder with no contrast. There is large shoulder joint effusion. There is subdeltoid effusion. There is multiple cortical full -thickness tear through the supraspinatus tendon. There is no significant retraction. There is narrow ing of the subacromial joint space. There is minor spurring at the AC joint. Subscapularis tendon is intact. The glenoid juan carlos appear intact. I see no fracture line. There is mil d increased signal in the greater tuberosity of the humerus on the T2 images consistent with a bone b ruise. IMPRESSION: Large full-thickness tears of the supraspinatus tendon without retraction. Large shoulder joint effusion and subdeltoid effusion. Edema in the greater tuberosity of the humerus consistent with a bone bruise. No fracture seen.
== END | disposition home or self-care (01) ==
LOC: RADMRIMAIN 12:50
PROVIDERS: ATTEND Orthopaedic Surgery
DX: M75.111 Incomplete rotator cuff tear or rupture of right shoulder, not specified as traumatic (principal); M25.411 Effusion, right shoulder

== ENCOUNTER 2020-10-12 05:44 | Day surgery (SDC) | payer MEDICARE, OTHER ==
[2020-10-06 18:26] VITALS: BMI 28.1
--- NOTE | 2020-10-11 20:23 | HP ---
HISTORY AND PHYSICAL DATE OF SURGERY: 10/12/2020 Kinza Adhikari is a 70-year-old patient seen with progressive right shoulder pain. We discussed options regarding treatment. She elected to proceed with arthroscopy. Consent was obtained. Medical clearance was provided by Dr. Felix. PAST MEDICAL HISTORY: Hypertension, hyperlipidemia, hypothyroidism, gastroesophageal reflux disease. PAST SURGICAL HISTORY: Breast biopsy, tubal ligation, D and C, hysterectomy. DAILY MEDICATIONS: Levothyroxine, simvastatin, hydrochlorothiazide, hydrochloroquine, metoprolol, omeprazole. ALLERGIES: IODINE CONTRAST IV DYE. PHYSICAL EVALUATION OF THE RIGHT SHOULDER: Flexion 130, abduction 110, external rotation 35 with pain and weakness. Tenderness along the anterolateral acromion and rotator cuff insertion. Impingement positive at 90. Drop-arm sign positive. Distal neurovascular exam is intact. RADIOGRAPHS: Right shoulder radiographs revealed a type 2 acromion, acromioclavicular joint osteoarthritis and cystic changes of the greater tuberosity. Right shoulder MRI revealed a large rotator cuff tendon tear. IMPRESSION: 1. Right shoulder impingement with rotator cuff tear. 2. Right shoulder acromioclavicular joint osteoarthritis. 3. Hypertension. 4. Hyperlipidemia. 5. Hypothyroidism. 6. Gastroesophageal reflux disease. PLAN: Right shoulder arthroscopy with decompression, rotator cuff repair, Kvng procedure and debridement. MMODL / IJN: [id number] /
[~2020-10-12 05:44] MED LIST changes: -ACETAMINOPHEN TAB 500 MG TAB PO PRN; -MELOXICAM 7.5 MG TAB PO PRN; -MIDAZOLAM 2 MG/2 ML VIAL IV PRN; -ROPIVACAINE 246.25 MG, EPINEPHrine 0.5 MG, KETOROLAC 30 MG, cloNIDine HCL/PF 80 MCG, WA... MISCELLANE PRN; -ROPIVACAINE/EPI/CLONIDINE/KET 50 ML SYRINGE MISCELLANE PRN; -TRANEXAMIC ACID 1,000 MG in SODIUM CHLORIDE 0.9% 100 ML IVPB PRN
[2020-10-12] MEDS ORDERED: LIDOCAINE 1% (10MG/ML) FOR IV START INTRADERMA ONE (06:31)
[2020-10-12 06:43] VITALS: RESP 16
[2020-10-12 06:43] LABS: Glucose,Whole Blood 84 mg/dL (75-99)
[2020-10-12] MEDS ORDERED: MIDAZOLAM 2 MG/2 ML VIAL IV ONE (06:56)
[2020-10-12] MEDS ORDERED: PROPOFOL 10 MG/ML 20 ML VIAL IV ONE (07:22)
[2020-10-12] MEDS ORDERED: ePHEDrine SULFATE/0.9% NACL/PF 50 MG/5 ML SYRINGE IV ONE (07:22)
[2020-10-12] MEDS ORDERED: SUCCINYLCHOLINE CHLORIDE 100 MG/5 ML SYR IV ONE (07:22)
[2020-10-12] MEDS ORDERED: fentaNYL (PF) 50 MCG/ML 2 ML AMP ONE (07:22)
[2020-10-12] MEDS ORDERED: LIDOCAINE 1% INJ 10MG/ML (20 ML MDV) ONE (07:22)
[2020-10-12] MEDS ORDERED: ROPIVACAINE 5 MG/ML 30 ML VIAL ONE (07:22)
[2020-10-12] MEDS ORDERED: DEXAMETHASONE SOD PHOSPHATE 4 MG/ML 1 ML VIAL ONE (07:22)
[2020-10-12] MEDS ORDERED: SODIUM CHLORIDE 0.9% 100 ML BAG ONE (07:22)
[2020-10-12] MEDS ORDERED: SODIUM CHLORIDE 0.9% (PF) 10 ML VIAL ONE (07:22)
[2020-10-12] MEDS ORDERED: ONDANSETRON 4 MG/2 ML VIAL ONE (07:22)
--- NOTE | 2020-10-12 09:11 | P.OP ---
Date of Procedure: 10/12/20 Preoperative Diagnosis: Right shoulder impingement Postoperative Diagnosis: 1. Right shoulder rotator cuff tear 2. Right shoulder impingement 3. Right shoulder acromioclavicular joint osteoarthritis 4. Right shoulder partial long head biceps tendon tear Procedure(s) Performed: 1. Right shoulder arthroscopic rotator cuff repair 2. Right shoulder arthroscopic subacromial decompression 3. Right shoulder arthroscopic Kvng procedure 4. Right shoulder arthroscopic biceps tenotomy Implants: 24.75 Arthrex swivel lock anchors 25.5 Arthrex swivel lock anchors Anesthesia: GETA, regional (Interscalene block) Surgeon: Ulices Reveles Stone Grader #1: Black Garcia Estimated Blood Loss (ml): 8 Pathology: none sent Condition: stable Disposition: PACU Indications for Procedure: 70-year-old patient seen with progressive right shoulder pain. After treatment options were discussed, she elected to proceed with arthroscopy. Operative Findings: see description of procedure Description of Procedure: Patient underwent an interscalene block by department of anesthesia. The patient was then taken to the operative suite. The patient underwent a general anesthetic by the department of anesthesia. The patient was placed into a lateral position and secured. There was appropriate padding of the bony prominence. Right shoulder was then prepped and draped in normal sterile orthopedic fashion. We placed the extremity in 10 pounds of longitudinal traction. A posterior incision was now made for a posterior working portal site. The trocar and cannula were inserted into the glenohumeral joint. Arthroscopy was initiated. Spinal needle was now inserted anteriorly, to ascertain the anterior working portal site. An incision was now made in that area, a trocar was inserted followed by a probe. There was some hyperemia and partial tearing of long head biceps tendon. There were grade 1 chondromalacia changes of the humeral head with no tears. The labrum was probed and found to be stable. I performed arthroscopic biceps tenotomy. I again probed the superior labral area and it was found to be stable. Instruments were now removed from the glenoid humeral joint. Utilizing the posterior working portal site, the trocar and cannula were inserted into the subacromial space. Arthroscopy initiated. I made an incision 2 fingerbreadths lateral to the acromion. I introduced my trocar followed by my ArthroCare ablator. I now began ablating thick subacromial bursal tissue, which exposed the undersurface of the anterior acromion. There was diminished subacromial space. There was a very prominent anterior acromion. A motorized bur was introduced and a subacromial decompression was performed. I also excised some osteophytes off the inferior aspect of the distal clavicle. The AC joint was visualized and noted to be fairly arthritic. The motorized bur was introduced in the anterior portal site and a Kvng procedure was performed without difficulty, decompressing the AC joint nicely. I turned my attention to the rotator cuff. There was a 2.53 cm rotator cuff tear. I debrided the margins getting down to stable tendon tissue. I introduced my motorized bur and abraded the footprint area, getting some petechial bleeding. I now made an accessory portal site off the lateral aspect of the acromion. I punched 2 holes medial for medial row fixation with the assistance of Jordan GRANT carefully tapping the punch with a mallet as I held the punch and the camera. I now introduced both anchors into the pre-punched holes and Jordan GRANT tapped th em with the mallet as I held anchors and the camera. Jordan GRANT now screwed the anchors in place a while I held the anchor guide and camera. All 8 limbs of suture were now passed through good bites of rotator cuff tendon. I now punched 2 holes for lateral row fixation again I held the punch and camera while Jordan GRANT used a mallet to tap in the punch. We now passed sutures through both anchors and individually I introduced the anchors into the pre-punch holes I held the anchor guide in position with one hand holding the camera with the other hand while Jordan GRANT tensioned the sutures and screwed in the anchors one at a time. All residual suture limbs were now clipped. We had good compression of the tendon along the entire footprint. Instruments now removed from the portal sites. All portal sites were approximated with nylon suture. Sterile dressings were applied followed by a shoulder immobilizer. Jordan GRANT assisted in this complex case. The patient was awakened, transferred to a bed, and taken to recovery in stable condition.
[2020-10-12 09:22] VITALS: TEMP 96.8
[2020-10-12 10:06] VITALS: BP 151/74; PULSE 72
--- NOTE | 2020-10-12 11:55 | P.ANPRN ---
Procedure Note - Anesthesia - Nerve Block Performed Right Interscalene Single Time Out Performed: Yes ([id number]) Date of Procedure: 10/12/20 Procedure Start Time: :56 Procedure Stop Time: 07:08 Location of Patient: PreOp Indication: Acute Post-Operative Pain, Dx/Pain Location (Right Shoulder), Requested by Surgeon Specifically requested for management of pain by DrSarwat: Ulices Reveles Sedation Type: Sedate with meaningful contact maintained Preparation: Sterile Prep Position: Supine Needle Types: Pajunk Needle Gauge: 20 Ultrasound used to visualize needle placement: Yes Ultrasound used to observe medication spread: Yes Injectate: 0.5% Ropivacaine (see comment for volume) (30 cc and decadron 4mg) Blood Aspirated: No Pain Paresthesia on Injection Noted: No Resistance on Injection: Normal Image Stored and Saved: Yes Events: Uneventful and Well Tolerated
== END 2020-10-12 10:45 | disposition home or self-care (01) ==
LOC: OR 05:44
PROVIDERS: ATTEND Orthopaedic Surgery
DX: M75.111 Incomplete rotator cuff tear or rupture of right shoulder, not specified as traumatic (principal); M25.811 Other specified joint disorders, right shoulder; E03.9 Hypothyroidism, unspecified; E78.5 Hyperlipidemia, unspecified; I10 Essential (primary) hypertension; K21.9 Gastro-esophageal reflux disease without esophagitis; M19.011 Primary osteoarthritis, right shoulder; Z88.8 Allergy status to other drugs, medicaments and biological substances; Z90.710 Acquired absence of both cervix and uterus
CPT/HCPCS: 29827; 29828; 29826; 29824; 64415; 76942; C1713 ×2; C1894; J2250; J1100; J2405; J0690; J2001; J3010; J2795; J0330; J2704

== ENCOUNTER → 2021-02-15 | Outpatient (CLI) | payer MEDICARE, OTHER ==
--- NOTE | 2021-02-19 11:59 | MM ---
Reason for exam: screening (asymptomatic). Last mammogram was performed 1 year ago. History: Patient is postmenopausal. Family history of breast cancer in paternal aunt at age 70 and breast cancer in maternal cousin at age 50. Benign excisional biopsy of the left breast, August 2019. Benign US LT VAD breast biopsy of the left breast, June 08, 2012. Left U/S Cancelled VAD Biopsy of both breasts, November 27, 2011. Took estrogen for 2 years. Physical Findings: A clinical breast exam by your physician is recommended on an annual basis and results should be correlated with mammographic findings. MG 3D Screening Mammo W/Cad Bilateral CC and MLO view(s) were taken. Prior study comparison: February 14, 2020, bilateral MG 3d diag mammo w/cad ESTHELA. February 08, 2019, bilateral MG 3d diag mammo w/cad ESTHELA. There are scattered fibroglandular densities. Previous mammotome biopsy in the left breast. There is chronic nodularity in the right breast. Post excisional scar left breast. No significant changes when compared with prior studies. ASSESSMENT: Benign, BI-RAD 2 RECOMMENDATION: Routine screening mammogram of both breasts in 1 year.
== END | disposition home or self-care (01) ==
LOC: RADMAMWWP 12:50
PROVIDERS: ATTEND Surgery
DX: Z12.31 Encounter for screening mammogram for malignant neoplasm of breast (principal); Z78.0 Asymptomatic menopausal state; Z80.3 Family history of malignant neoplasm of breast
CPT/HCPCS: 77063; 77067

== ENCOUNTER → 2021-02-22 | Outpatient (CLI) | payer MEDICARE, OTHER ==
[2021-02-22 13:37] VITALS: BP 154/75; PULSE 79; RESP 18; TEMP 97.9
--- NOTE | 2021-02-22 14:20 | P.PN ---
Subjective Progress Note Date: 02/22/21 (t) Principal diagnosis: fibrocystic changes of breast Padmini is a 70-year-old white female being followed for fibrocystic breast changes. She is not complaining of any lumps masses or nodules in either breast. She is not complaining of any nipple discharge of concern. [place] [id number] which was benign. She has also had prior stereotactic core biopsy of the left breast which was benign. Her most recent mammogram was bilateral on 123. This was benign BIRADS 2. A routine screening of both breasts in 1 year was recommended. The patient has been diagnosed with polymyalgia rheumatica 2018, and follows with Dr. Nelson. She has a known monoclonal gammopathy however has not been diagnosed with multiple myeloma herself. caffeine: none smoke: none chocolate: occasional Family History: brother: liver cancer sister: multipe myloma, colon cancer brother: stomach cancer brother: prostate cancer brother: multiple myloma Hormonal History: menarche: 12 , 4 miscarriages, first born at 18. breast fed:no menopause: 47 BCP: no hormones: < 1 year Surgical History: 1. D&C,s 2. bladder suspension 3. partial hysterectomy 4. shoulder surgery right 5. right knee surgery/ total knee replacement Medical History: 1. polymalgia rheumatica 2. monoclonal gammonopathy (last seen be Dr. Nelson April 21, 2020) Social History: smoke: none alcohol: none drugs: none Objective - Vital Signs Vital signs: Vital Signs Temp 97.9 F 02/22/21 13:31 Pulse 79 02/22/21 13:31 Resp 18 02/22/21 13:31 BP 154/75 02/22/21 13:31 Pulse Ox 100 02/22/21 13:31 Intake & Output 02/21/21 02/22/21 02/22/21 18:59 06:59 18:59 Weight 74.389 kg - Exam BMI 28.2 - Constitutional General appearance: Present: cooperative - EENT Eyes: Present: EOMI ENT: Present: hearing grossly normal - Neck Neck: Present: normal ROM - Respiratory Respiratory: bilateral: CTA - Cardiovascular Rhythm: regular Heart sounds: normal: S1, S2 - Integumentary Integumentary: Present: normal turgor - Musculoskeletal Musculoskeletal: Present: gait normal - Psychiatric Psychiatric: Present: A&O x's 3, appropriate affect, intact judgment & insight - Additional findings Additional findings: Breast Exam: BRA: 42C inspection: Bilateral grade 3 ptosis Palpation: Right breast: Multi-positional exam fibrocystic changes, and the lateral aspect of the right breast is a skin lesion with some scaling which has changed recently Right axilla: No adenopathy of concern Left breast: Multi-positional exam fibrocystic changes no dominant masses or nod ules of concern Left axilla: No adenopathy of concern Assessment and Plan Assessment: Impression: 1. Recent bilateral mammogram no dominant masses or nodules of concern 2. Fibrocystic breast changes on physical exam 3. Skin lesion right breast as noted 4. Rheumatoid arthritis 5. Patient has had right shoulder surgery and right knee replacement in the recent past Plan: 1. Excision skin lesion right breast in the office 2. Bilateral mammogram in 1 year Cc: Dr. Felix
== END ==
LOC: WWCWWP 13:17
PROVIDERS: ATTEND Surgery
DX: N60.11 Diffuse cystic mastopathy of right breast (principal); N64.9 Disorder of breast, unspecified; M06.9 Rheumatoid arthritis, unspecified; Z96.651 Presence of right artificial knee joint; Z98.890 Other specified postprocedural states; Z91.041 Radiographic dye allergy status

== ENCOUNTER 2021-03-02 06:51 | Day surgery (SDC) | payer MEDICARE, OTHER ==
[2021-02-28 12:23] VITALS: BMI 27.4
[~2021-03-02 06:51] MED LIST changes: -DEXAMETHASONE SOD PHOSPHATE 4 MG/ML 1 ML VIAL IV ONE; -HYDROmorphone 0.5 MG/0.5 ML SYRINGE IVP PRN; +LIDOCAINE 1% (10MG/ML) FOR IV START INTRADERMA PRN; -ONDANSETRON 4 MG/2 ML VIAL IVP ONE
[2021-03-02 07:26] VITALS: TEMP 97.5
[2021-03-02] MEDS ORDERED: PROPOFOL 10 MG/ML 20 ML VIAL IV ONE (07:37)
--- NOTE | 2021-03-02 08:02 | P.PCN ---
Date of Procedure: 03/02/21 Procedure(s) Performed: BRIEF HISTORY: Patient is a 70-year-old pleasant female scheduled for an elective colonoscopy as a part of a for colon cancer and family history of colon cancer. Her sister was diagnosed with colon cancer at age 70. PROCEDURE PERFORMED: Colonoscopy with snare polypectomy PREOPERATIVE DIAGNOSIS: Screening for colon cancer and family history of colon cancer. IV sedation per Anesthesia. PROCEDURE: After informed consent was obtained, the patient, was brought into the endoscopy unit. IV sedation was administered by Anesthesia under continuous monitoring. Digital rectal examination was normal. Initially the Olympus CF-160 flexible video colonoscope was then inserted in the rectum, gradually advanced into the cecum without any difficulty. Careful examination was performed as the scope was gradually being withdrawn. Ileocecal valve and the appendiceal orifice were visualized and appeared normal. Prep was excellent. Mucosa of the cecum, as a millimeter and 5 mm sessile polyps removed by snare polypectomy. Rest of the ascending colon, transverse colon, descending colon, sigmoid colon, and rectum appeared normal. In the rectum there was a 1 cm polyp removed by snare polypectomy. Scattered sigmoid diverticulosis seen. Retroflexion was performed in the rectum and no lesions were seen. The patient tolerated the procedure well. IMPRESSION: 3 mm and 5 mm cecal polyp status post polypectomy 1 cm rectal polyp status post polypectomy Scattered sigmoid diverticulosis RECOMMENDATIONS: Findings of this examination were discussed with the patient as well as her family. She was advised to follow with the biopsy results. She'll have a repeat colonoscopy in 3 years..
[2021-03-02 08:08] VITALS: BP 134/90; PULSE 73; RESP 16
== END 2021-03-02 08:43 | disposition home or self-care (01) ==
LOC: ORWHC2ENDO 06:51
PROVIDERS: ATTEND Internal Medicine Gastroenterology
DX: Z12.11 Encounter for screening for malignant neoplasm of colon (principal); K57.30 Diverticulosis of large intestine without perforation or abscess without bleeding; I10 Essential (primary) hypertension; E78.5 Hyperlipidemia, unspecified; E07.9 Disorder of thyroid, unspecified; K21.9 Gastro-esophageal reflux disease without esophagitis; Z90.710 Acquired absence of both cervix and uterus; M06.9 Rheumatoid arthritis, unspecified; Z80.0 Family history of malignant neoplasm of digestive organs; Z79.890 Hormone replacement therapy; Z79.899 Other long term (current) drug therapy; Z91.041 Radiographic dye allergy status
CPT/HCPCS: 88305; 45385; J2704

== ENCOUNTER → 2021-03-29 | Outpatient (CLI) | payer MEDICARE, OTHER | LOC: WWCWWP 08:44 | PROVIDERS: ATTEND Surgery | DX: Z53.9 Procedure and treatment not carried out, unspecified reason (principal) ==

== ENCOUNTER 2021-04-14 11:10 | Inpatient (IN) | payer MEDICARE, OTHER ==
[2021-04-14] MEDS ORDERED: KETOROLAC 15 MG/ML 1 ML VIAL IVP STA (11:33)
[2021-04-14] MEDS ORDERED: MORPHINE SULFATE 4 MG/ML SYRINGE IVP STA ×2 (11:35→16:44)
--- NOTE | 2021-04-14 12:10 | ED ---
Back Pain [facility] - General Chief Complaint: Back Pain/Injury Stated Complaint: back pain Time Seen by Provider: 04/14/21 11:22 Source: patient Limitations: no limitations - History of Present Illness Initial Comments: Patient is a 70-year-old female who presents to the emergency department with a chief complaint of lower back pain. Patient reports she sneezed one week ago which resulted in mid left back pain. No other mechanism of injury. Patient reports that over the past couple days the pain has moved to the lower right side. Pain is constant, aching in nature, worse with lying flat and standing. She reports she has had trouble sleeping due to pain. Patient denies any radiation to the bilateral legs. Pain is refractory to Tylenol. She did reach out to her primary care provider who prescribed her ibuprofen which has not improved her pain. She denies paresthesias/numbness in the back and bilateral legs. She denies saddle anesthesia. She denies urinary symptoms such as urinary incontinence/retention. Patient denies fever, chills, shortness of breath, cough, chest pain, and abdominal pain. Patient does have a history of rheumatoid arthritis and is currently taking methotrexate and prednisone. 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 Patient and are concerned as patient's brother had multiple myeloma which included pain in the back. Patient sees oncologist for repeat blood work next week. - Related Data Home Medications Medication Instructions Recorded Confirmed Cranberry Fruit Extract [Cranberry] 500 mg PO DAILY 01/22/16 02/28/21 Levothyroxine Sodium [Synthroid] 88 mcg PO MOTUWETHFRSA 01/22/16 02/28/21 Multivitamins, Thera [Multivitamin 1 tab PO DAILY 01/22/16 02/28/21 (formulary)] Simvastatin [Zocor] 20 mg PO HS 01/22/16 02/28/21 Omeprazole 20 mg PO QAM 03/18/19 02/28/21 Hydroxychloroquine Sulfate 200 mg PO BID 07/29/19 02/28/21 [Plaquenil] Latanoprost/Pf [Latanoprost 0.005% 1 drop BOTH EYES HS 09/03/19 02/28/21 Eye Drop] Metoprolol Succinate (ER) [Toprol 50 mg PO DAILY 03/23/20 02/28/21 XL] Levothyroxine Sodium [Synthroid] 176 mcg PO DIGGS 03/24/20 02/28/21 metHOTREXate sodium [Methotrexate] 15 mg PO TU 10/06/20 02/28/21 predniSONE 2.5 mg PO DAILY 10/06/20 02/28/21 Folic Acid 1 mg PO DAILY 02/28/21 02/28/21 Calcium Carbonate [Calcium] 1,200 mg PO DAILY 04/14/21 04/14/21 Cholecalciferol [Vitamin D3 (25 25 mcg PO DAILY 04/14/21 04/14/21 Mcg = 1000 Iu)] Ibuprofen [Motrin] 600 mg PO Q8HR PRN 04/14/21 04/14/21 Previous Rx's Medication Instructions Recorded Docusate [Colace] 100 mg PO DAILY PRN 3 Days #3 04/14/21 capsule HYDROcodone/APAP 10-325MG [Tarzana 1 tab PO Q6H PRN 3 Days #12 tab 04/14/21 10-325] Allergies Allergy/AdvReac Type Severity Reaction Status Date / Time Iodinated Contrast Media Allergy Rash/Hives Verified 04/14/21 15:04 [Iodinated Contrast Media - IV Dye] Review of Systems ROS Statement: Those systems with pertinent positive or pertinent negative responses have been documented in the HPI. ROS Other: All systems not noted in ROS Statement are negative. Past Medical History Past Medical History: Eye Disorder, GERD/Reflux, Hyperlipidemia, Hypertension, Musculoskeletal Disorder, Rheumatoid Arthritis (RA), Thyroid Disorder Additional Past Medical History / Comment(s): Hx lumpectomy lt breast, benign. Glaucoma. Rt shoulder rotator cuff tear History of Any Multi-Drug Resistant Organisms: None Reported Past Surgical History: Bladder Surgery, Breast Surgery, Hysterectomy, Joint Replacement, Tubal Ligation Additional Past Surgical History / Comment(s): D&C's. Breast bx; Lumpectomy Lt breast. Total Rt Knee 03/27/20 Past Anesthesia/Blood Transfusion Reactions: No Reported Reaction Past Psychological History: No Psychological Hx Reported Smoking Status: Never smoker - Past Family History Brother(s) Family Medical History: Cancer, Coronary Artery Disease (CAD) Additional Family Medical History / Comment(s): (4) BROTHERS ALL WITH CANCER - multiple myeloma, prostate, liver, stomach cancers Mother Family Medical History: Coronary Artery Disease (CAD), Diabetes Mellitus Father Family Medical History: Coronary Artery Disease (CAD), CVA/TIA Sister(s) Family Medical History: Cancer Additional Family Medical History / Comment(s): colon cancer, multiple myeloma General Exam Limitations: no limitations General appearance: alert, in no apparent distress Head exam: Present: atraumatic, normocephalic, normal inspection Eye exam: Present: normal appearance, PERRL, EOMI. Absent: scleral icterus, conjunctival injection, periorbital swelling Neck exam: Present: normal inspection. Absent: tenderness, meningismus, lymphadenopathy Respiratory exam: Present: normal lung sounds bilaterally. Absent: respiratory distress, wheezes, rales, rhonchi, stridor Cardiovascular Exam: Present: regular rate, normal rhythm, normal heart sounds. Absent: systolic murmur, diastolic murmur, rubs, gallop, clicks GI/Abdominal exam: Present: soft. Absent: distended, tenderness, guarding, rebound, rigid Extremities exam: Present: normal inspection, full ROM Back exam: Present: normal inspection, full ROM, tenderness (Right lumbar region along the paraspinal muscles). Absent: muscle spasm, paraspinal tenderness, vertebral tenderness, rash noted Neurological exam: Present: alert, oriented X3, CN II-XII intact Psychiatric exam: Present: normal affect, normal mood Skin exam: Present: warm, dry, intact, normal color. Absent: rash Course Vital Signs 04/14/21 11:11 Temperature 97.8 F Pulse Rate 80 Respiratory 18 Rate Blood Pressure 174/87 O2 Sat by Pulse 100 Oximetry Medical Decision Making - Medical Decision Making This is a 70-year-old female presents with lower back pain. Thorough history and examination were performed. Thoracic spine x-ray reveals an osteoporotic compression fracture of T11 and degenerative disc disease. Lumbosacral x-ray reveals spondylolisthesis, degenerative disc disease and facet arthropathy. CT of the thoracic spine without contrast reveals T11 compression fracture deformity with slight posterior protrusion of the upper right corner of the T11 vertebral body into the spinal canal. CT of the lumbar spine without contrast reveals spondylolisthesis of the lumbar spine. Patient given morphine and Toradol for pain. On reevaluation pain is improved markedly. My neurological exam is unremarkable with no focal deficits or weakness. Case discussed with Dr. Stockton. Patient will be discharged with TLSO prescription and short course of Tarzana with instruction to follow-up with Dr. Stockton at earliest available appointment. Return parameters discussed Patient and son verbalize understanding and are agreeable to plan. Dr. Alexandre is my attending. Disposition Clinical Impression: Compression fracture of body of thoracic vertebra Disposition: HOME SELF-CARE Condition: Good Instructions (If sedation given, give patient instructions): Vertebral Compression Fracture (ED) Additional Instructions: Take medication as prescribed. Take spine brace prescriptions to local medical store or spine brace at earliest availability. Follow-up with Dr. Stockton at earliest available appointment for further evaluation and management. Return to the emergency department if you experience new, concerning, or worsening symptoms including but not limited to severe back or leg pain, leg weakness, urinary incontinence, and urinary retention. Prescriptions: Docusate [Colace] 100 mg PO DAILY PRN 3 Days #3 capsule PRN Reason: Constipation HYDROcodone/APAP 10-325MG [Tarzana 10-325] 1 tab PO Q6H PRN 3 Days #12 tab PRN Reason: pain Is patient prescribed a controlled substance at d/c from ED?: Yes When asked, does pt state using other controlled substances?: No If prescribed controlled substance>3 days was MAPS reviewed?: Prescribed <3 Days If opioid is for acute pain is fill amount 7 days or less?: No If Rx opioid, was Start Talking consent form obtained?: Yes Referrals: Selena Felix MD [Primary Care Provider] - 1-2 days Dani Stockton DO [Doctor of Osteopathic Medicine] - 1-2 days Time of Disposition: 16:31 Decision Time: 16:53
--- NOTE | 2021-04-14 12:52 | XR ---
Thoracic spine HISTORY: Pain 3 views of the thoracic spine There is a compression deformity with loss of height anteriorly at T11 of approximately 50%, no defin ite retropulsion. Some multilevel spondylosis changes present with loss of disc height at interverteb ral levels. No paraspinal mass. Vertebral bodies show loss of height. Alignment appears maintained al though the patient is slightly rotated. Some degenerative disc changes are noted in the cervical spin e. IMPRESSION: Osteoporotic compression fracture T11. Degenerative disc disease.
--- NOTE | 2021-04-14 12:54 | XR ---
Lumbosacral spine HISTORY: Pain 3 views of lumbosacral spine Lumbar vertebral bodies show preserved height, alignment is remarkable for slight spinal curvature. T here is spinal listhesis grade 1 L4-5, associated loss of disc height is present with vacuum phenomen on. Sclerosis is present in the posterior elements. Multilevel spondylosis is present. T11 compressi on deformities again noted as on the thoracic spine same date. IMPRESSION: Spondylolisthesis, degenerative disc disease and facet arthropathy. Osteoporotic compress ion fracture T11.
--- NOTE | 2021-04-14 14:12 | CT ---
EXAMINATION TYPE: CT lumbar spine wo con DATE OF EXAM: 04/14/2021 COMPARISON: No prior comparison HISTORY: pain TECHNIQUE: CT scan of the lumbar spine without contrast CT DLP: 785.6 mGycm Automated exposure control for dose reduction was used. FINDINGS: Lumbar lordosis is maintained. There is grade 1 anterolisthesis of L4-5. Mild to moderate narrowing o f the spaces of L4-5 and L5-S1. Facet joint arthropathy changes are present throughout the lumbar spi ne. Small disc herniation and/or bulge at L5-S1. There is mild bony narrowing of the left L4-5 neural foraminal space. The vertebral body heights are within normal. The posterior elements are acutely in tact. The soft tissues within normal limits. Mild arthritic changes are seen in the sacroiliac joints . Atherosclerotic calcifications are seen in the abdominal aorta. IMPRESSION: SPONDYLOLISTHESIS OF THE LUMBAR SPINE DESCRIBED ABOVE. NONURGENT MRI OF THE LUMBAR SPINE WOULD BE BETTER FOR CHARACTERIZING OF THE SOFT TISSUE STRUCTURES.
--- NOTE | 2021-04-14 14:21 | CT ---
EXAMINATION TYPE: CT thoracic spine wo con DATE OF EXAM: 04/14/2021 COMPARISON: No prior CT of the thoracic spine HISTORY: pain TECHNIQUE: CT scan of the thoracic spine without contrast CT DLP: 499.9 mGycm Automated exposure control for dose reduction was used. FINDINGS: Maintained thoracic kyphosis. Fracture deformity of T11 with more than 70% loss of height. Slight pos terior angulation of the superior posterior average of the T11 vertebral body on the right, this appe ars to protrude into the spinal canal slightly. No retropulsed osseous fragments are seen otherwise. Vertebral body heights are within normal limit. Suture elements are intact. Mild narrowing of the int ervertebral spaces seen thoracic spine most apparent at T5-6, T6-7 and T7-8. Facet joint arthropathy seen at T11-12 and T12-L1. Multilevel tiny bony spurs noted in the thoracic spine. There is a small gastroesophageal hiatal hernia. The intra-aortic blood is low in attenuation suggestive of anemia. Intracardiac, likely coronary arterial calcifications are noted. IMPRESSION: T11 COMPRESSION FRACTURE DEFORMITY WITH SLIGHT POSTERIOR PROTRUSION OF THE UPPER RIGHT CORNER OF T11 VERTEBRAL BODY INTO THE SPINAL CANAL. CLINICAL CORRELATION FOR NEUROLOGIC SYMPTOMS RECOMMENDED. THE NEED FOR AN MRI OF THE THORACIC SPINE T O EVALUATE SPINAL CORD INVOLVEMENT SHOULD BE DETERMINED ON CLINICAL BASIS. NOTE SMALL GASTROESOPHAGEAL HIATAL HERNIA
[2021-04-14] MEDS ORDERED: NALOXONE 0.4 MG/ML 1 ML VIAL IV PRN (17:31)
[2021-04-14] MEDS ORDERED: ACETAMINOPHEN TAB 325 MG TAB PO PRN (19:25)
[2021-04-14] MEDS: PANTOPRAZOLE 40 MG TABLET PO SCH (20:37)
[2021-04-14] MEDS: MELATONIN 3 MG TABLET PO PRN (20:37)
[2021-04-14] MEDS: traMADol 50 MG TAB PO PRN (20:38)
[2021-04-14] MEDS: LATANOPROST 0.005% OPHTH DROPS 2.5 ML BTL BOTH EYES SCH (20:38)
[2021-04-14] MEDS: HYDROXYCHLOROQUINE SULFATE 200 MG TAB PO SCH (20:38)
[2021-04-14] MEDS: ONDANSETRON 4 MG/2 ML VIAL IVP PRN (20:39)
[2021-04-14 20:40] LABS: Basophils % (A) 1 %; Eosinophils % (A) 1 %; HCT 33.4 % (34.0-46.0); HGB 11.3 gm/dL (11.4-16.0); Lymphocytes # (A) 1.5 k/uL (1.0-4.8); Lymphocytes % (A) 23 %; MCH 31.3 pg (25.0-35.0); MCHC 33.8 g/dL (31.0-37.0); MCV 92.6 fL (80.0-100.0); Mean Platelet Volume 7.2; Monocytes # (A) 0.6 k/uL (0-1.0); Monocytes % (A) 9 %; Neutrophils # (A) 4.3 k/uL (1.3-7.7); Neutrophils % (A) 65 %; Platelet Count 383 k/uL (150-450); WBC 6.6 k/uL (3.8-10.6)
[2021-04-14 20:51] LABS: African American GFR (CKD) >90 (>60 ml/min/1.73 sqM); Anion Gap 10 mmol/L; Blood Urea Nitrogen 13 mg/dL (7-17); Calcium 9.3 mg/dL (8.4-10.2); Carbon Dioxide 26 mmol/L (22-30); Chloride 96 mmol/L (98-107); Glucose 90 mg/dL (74-99); Magnesium 1.8 mg/dL (1.6-2.3); Non-African American GFR(CKD) >90 (>60 ml/min/1.73 sqM); Potassium 3.7 mmol/L (3.5-5.1); Sodium 132 mmol/L (137-145)
[2021-04-14] MEDS: MORPHINE SULFATE 4 MG/ML SYRINGE IV PRN (22:18)
[2021-04-15] MEDS: MORPHINE SULFATE 4 MG/ML SYRINGE IV PRN ×2 (04:48→09:23)
[2021-04-15] MEDS: traMADol 50 MG TAB PO PRN (08:20)
[2021-04-15] MEDS: ONDANSETRON 4 MG/2 ML VIAL IVP PRN ×2 (08:20→15:01)
[2021-04-15] MEDS: PANTOPRAZOLE 40 MG TABLET PO SCH (09:17)
[2021-04-15] MEDS: CHOLECALCIFEROL 25 MCG (1000 IU) TABLET PO SCH (09:17)
[2021-04-15] MEDS: METOPROLOL SUCCINATE (ER) 50 MG TAB.ER.24H PO SCH (09:17)
[2021-04-15] MEDS: FOLIC ACID 1 MG TAB PO SCH (09:17)
[2021-04-15] MEDS: MULTIVITAMINS, THERA 1 EACH TAB PO SCH (09:17)
[2021-04-15] MEDS: CALCIUM CARBONATE 500 MG CHEWABLE PO SCH (09:17)
[2021-04-15] MEDS: HYDROXYCHLOROQUINE SULFATE 200 MG TAB PO SCH ×2 (09:18→20:34)
[2021-04-15 10:03] LABS: Appearance,Urine Turbid (Clear); Bacteria,Urine Many /hpf; Bilirubin,Urine 1+ (Negative); Blood,Urine Large (Negative); Calcium Oxalate Crystals,Urine Moderate /hpf; Color,Urine Yellow; Glucose,Urine (UA) Negative (Negative); Ketones,Urine 3+ (Negative); Leukocyte Esterase,Urine Large (Negative); Mucus,Urine Many /hpf; Nitrite,Urine Negative (Negative); Protein,Urine 3+ (Negative); RBC,Urine >182 /hpf (0-5); Specific Gravity,Urine 1.022 (1.001-1.035); Squamous Epithelial Cell,Urine 8 /hpf (0-4); WBC,Urine >182 /hpf (0-5)
[2021-04-15] MEDS ORDERED: polyethylene glycoL 3350 17 GM POWD.PACK PO PRN (10:59)
[2021-04-15] MEDS ORDERED: SENNOSIDES 8.6 MG TAB PO PRN (10:59)
--- NOTE | 2021-04-15 11:14 | P.HPIM ---
History of Present Illness 70-year-old pleasant female came in with compensative lower back pain as well as upper back pain, has been going on for about a week and this pain followed after a big sneeze. Patient is found to have a T11 vertebral compression fracture. Patient was diagnosed with osteoporosis recently patient has been on steroids and also Prilosec for a while. Patient denied any fever chills patient denied any tingling numbness anywhere. Patient does have increased urinary frequency and dysuria. Urine analysis was opted which is significantly abnormal. Patient does have history of rheumatoid arthritis for which patient is on a is a pl easant medications as well as a prednisone for long time. 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 Patient is being monitored for multiple myeloma as well, patient is not diagnosed with multiple myeloma at this time. REVIEW OF SYSTEMS: CONSTITUTIONAL: No fever, no malaise, no fatigue. HEENT: No recent visual problems or hearing problems. Denied any sore throat. CARDIOVASCULAR: No chest pain, orthopnea, PND, no palpitations, no syncope. PULMONARY: No shortness of breath, no cough, no hemoptysis. GASTROINTESTINAL: No diarrhea, no nausea, no vomiting, no abdominal pain. NEUROLOGICAL: No headaches, no weakness, no numbness. HEMATOLOGICAL: Denies any bleeding or petechiae. GENITOURINARY: Denies any burning micturition, frequency, or urgency. MUSCULOSKELETAL/RHEUMATOLOGICAL: Mentioned in HPI ENDOCRINE: Denies any polyuria or polydipsia. The rest of the 14-point review of systems is negative. PHYSICAL EXAMINATION: GENERAL: The patient is alert and oriented x3, not in any acute distress. Well developed, well nourished. HEENT: Pupils are round and equally reacting to light. EOMI. No scleral icterus. No conjunctival pallor. Normocephalic, atraumatic. No pharyngeal erythema. No thyromegaly. CARDIOVASCULAR: S1 and S2 present. No murmurs, rubs, or gallops. PULMONARY: Chest is clear to auscultation, no wheezing or crackles. ABDOMEN: Soft, nontender, nondistended, normoactive bowel sounds. No palpable organomegaly. MUSCULOSKELETAL: Deferred to orthopedic surgery EXTREMITIES: No cyanosis, clubbing, or pedal edema. NEUROLOGICAL: Gross neurological examination did not reveal any focal deficits. SKIN: No rashes. Assessment and plan -T11 vertebral compression fracture along with a spondylolisthesis of the lumbar spine: Patient will be evaluated by orthopedic surgery TLS O brace, pain management physical therapy outpatient therapy evaluation. -Urinary tract infection patient was started on Rocephin and urine cultures will be obtained. Patient is not septic at this time. -Hyperthyroidism -rheumatoid arthritis. For which patient is on methotrexate hydroxychloroquine and prednisone all of which will be started back except for prednisone -Osteoporosis secondary to prolonged the steroid use probably proton pump inhibitor -Hyperthyroidism for which patient is on levothyroxine which will be continued neck sign-hyperlipidemia: Continue with the statin -Hypertension DVT prophylaxis: Lovenox Past Medical History Past Medical History: Eye Disorder, GERD/Reflux, Hyperlipidemia, Hypertension, Musculoskeletal Disorder, Rheumatoid Arthritis (RA), Thyroid Disorder Additional Past Medical History / Comment(s): Hx lumpectomy lt breast, benign. Glaucoma. Rt shoulder rotator cuff tear History of Any Multi-Drug Resistant Organisms: None Reported Past Surgical History: Bladder Surgery, Breast Surgery, Hysterectomy, Joint Replacement, Tubal Ligation Additional Past Surgical History / Comment(s): D&C's. Breast bx; Lumpectomy Lt breast. Total Rt Knee 03/27/20, osteoporosis Past Anesthesia/Blood Transfusion Reactions: No Reported Reaction Past Psychological History: No Psychological Hx Reported Smoking Status: Never smoker Past Alcohol Use History: None Reported Past Drug Use History: None Reported - Past Family History Brother(s) Family Medical History: Cancer, Coronary Artery Disease (CAD) Additional Family Medical History / Comment(s): (4) BROTHERS ALL WITH CANCER - multiple myeloma, prostate, liver, stomach cancers Mother Family Medical History: Coronary Artery Disease (CAD), Diabetes Mellitus Father Family Medical History: Coronary Artery Disease (CAD), CVA/TIA Sister(s) Family Medical History: Cancer Additional Family Medical History / Comment(s): colon cancer, multiple myeloma Medications and Allergies Home Medications Medication Instructions Recorded Confirmed Type Cranberry Fruit Extract [Cranberry] 500 mg PO DAILY 01/22/16 04/14/21 History Levothyroxine Sodium [Synthroid] 88 mcg PO MOTUWETHFRSA 01/22/16 04/14/21 History Multivitamins, Thera [Multivitamin 1 tab PO DAILY 01/22/16 04/14/21 History (formulary)] Simvastatin [Zocor] 20 mg PO HS 01/22/16 04/14/21 History Omeprazole 20 mg PO DAILY 03/18/19 04/14/21 History Hydroxychloroquine Sulfate 200 mg PO BID 07/29/19 04/14/21 History [Plaquenil] Latanoprost/Pf [Latanoprost 0.005% 1 drop BOTH EYES HS 09/03/19 04/14/21 History Eye Drop] Metoprolol Succinate (ER) [Toprol 50 mg PO DAILY 03/23/20 04/14/21 History XL] Levothyroxine Sodium [Synthroid] 176 mcg PO DIGGS 03/24/20 04/14/21 History metHOTREXate sodium [Methotrexate] 15 mg PO TU 10/06/20 04/14/21 History predniSONE 2.5 mg PO DAILY 10/06/20 04/14/21 History Folic Acid 1 mg PO DAILY 02/28/21 04/14/21 History Calcium Carbonate [Calcium] 1,200 mg PO DAILY 04/14/21 04/14/21 History Cholecalciferol [Vitamin D3 (25 25 mcg PO DAILY 04/14/21 04/14/21 History Mcg = 1000 Iu)] Docusate [Colace] 100 mg PO DAILY PRN 3 Days #3 04/14/21 Rx capsule HYDROcodone/APAP 10-325MG [Tow 1 tab PO Q6H PRN 3 Days #12 tab 04/14/21 Rx 10-325] Ibuprofen [Motrin] 600 mg PO Q8HR PRN 04/14/21 04/14/21 History Allergies Allergy/AdvReac Type Severity Reaction Status Date / Time Iodinated Contrast Media Allergy Rash/Hives Verified 04/14/21 15:04 [Iodinated Contrast Media - IV Dye] Physical Exam Vitals: Vital Signs Temp Pulse Pulse Resp BP BP Pulse Ox 04/15/21 07:05 97.5 F L 85 15 145/76 99 04/15/21 02:00 97.4 F L 70 17 136/77 98 04/14/21 19:35 97.4 F L 73 18 180/85 99 04/14/21 19:20 16 04/14/21 18:15 80 16 132/87 99 Intake and Output 04/14/21 04/15/21 04/15/21 22:59 06:59 14:59 Intake Total 500 Balance 500 Intake: Oral 500 Other: Voiding Method Toilet # Voids 0 4 Weight 68.039 kg Results CBC & Chem 7: 04/14/21 20:26 04/14/21 20: Labs: Abnormal Lab Results - Last 24 Hours (Table) 04/14/21 04/14/21 04/15/21 Range/Units 20:26 20: 09:30 RBC 3.60 L (3.80-5.40) m/uL Hgb 11.3 L (11.4-16.0) gm/dL Hct 33.4 L (34.0-46.0) % Sodium 132 L (137-145) mmol/L Chloride 96 L (98-107) mmol/L Urine Appearance Turbid H (Clear) Urine Protein 3+ H (Negative) Urine Ketones 3+ H (Negative) Urine Blood Large H (Negative) Urine Bilirubin 1+ H (Negative) Ur Leukocyte Esterase Large H (Negative) Urine RBC >182 H (0-5) /hpf Urine WBC >182 H (0-5) /hpf Urine WBC Clumps Many H (None) /hpf Ur Squamous Epith Cells 8 H (0-4) /hpf Calcium Oxalate Crystal Moderate H (None) /hpf Urine Bacteria Many H (None) /hpf Urine Mucus Many H (None) /hpf Thrombosis Risk Factor Assmnt - Choose All That Apply Any of the Below Risk Factors Present?: Yes Each Factor Represents 1 point: Obesity (BMI >25) Other Risk Factors: Yes Each Risk Factor Represents 2 Points: Age 61-74 years Other congenital or acquired thrombophilia - If yes, enter type in comment: No Thrombosis Risk Factor Assessment Total Risk Factor Score: 3 Thrombosis Risk Factor Assessment Level: Moderate Risk
[2021-04-15] MEDS ORDERED: LEVOTHYROXINE 88 MCG TAB PO SCH (11:30)
--- NOTE | 2021-04-15 11:49 | P.PN ---
Progress Note - Text Progress Note Date: 04/15/21 Spoke over the phone with ED regarding pt. CT is reviewed. This demonstrates T11 VCF that appears chronic in nature with sclerosis, about 60% height loss and a small amount of retropulsion NOT causing any significant canal stenosis. There is a degenerative L4-5 spondylolisthesis that is likely stable. There are no other fractures and alignment is maintained on these images. Would recommend conservative care first with LSO brace, PT, pain control. After a course of this treatment If this is insufficient to control pain and mobilize patient may consider surgical stabilization.
[2021-04-15] MEDS: SODIUM CHLORIDE 0.9% 1,000 ML IV SCH ×2 (11:51→20:36)
[2021-04-15] MEDS: HYDROcodone/APAP 7.5-325MG 1 EACH TAB PO PRN ×2 (12:00→20:34)
[2021-04-15] MEDS: ATORVASTATIN 10 MG TAB PO SCH (20:34)
[2021-04-15] MEDS: LATANOPROST 0.005% OPHTH DROPS 2.5 ML BTL BOTH EYES SCH (20:36)
[2021-04-16] MEDS: MORPHINE SULFATE 4 MG/ML SYRINGE IV PRN ×4 (01:35→16:03)
[2021-04-16] MEDS: HYDROcodone/APAP 7.5-325MG 1 EACH TAB PO PRN ×2 (05:01→15:16)
[2021-04-16] MEDS: LEVOTHYROXINE 88 MCG TAB PO SCH (05:38)
[2021-04-16] MEDS: HYDROXYCHLOROQUINE SULFATE 200 MG TAB PO SCH ×2 (08:15→20:51)
[2021-04-16] MEDS: ENOXAPARIN 40 MG/0.4 ML SYRINGE SQ SCH (08:15)
[2021-04-16] MEDS: METOPROLOL SUCCINATE (ER) 50 MG TAB.ER.24H PO SCH (08:15)
[2021-04-16] MEDS: CHOLECALCIFEROL 25 MCG (1000 IU) TABLET PO SCH (08:15)
[2021-04-16] MEDS: PANTOPRAZOLE 40 MG TABLET PO SCH (08:15)
[2021-04-16] MEDS: CALCIUM CARBONATE 500 MG CHEWABLE PO SCH (11:27)
[2021-04-16] MEDS: MULTIVITAMINS, THERA 1 EACH TAB PO SCH (11:27)
[2021-04-16] MEDS: FOLIC ACID 1 MG TAB PO SCH (11:27)
--- NOTE | 2021-04-16 15:16 | P.CNOR ---
History of Present Illness - [facility] Consult date: 04/16/21 Requesting physician: Ara Morton Consult reason: other (T11 compression fracture) History of present illness: Patient is a 70-year-old female who presented to the emergency department at [facility] on 04/14/2021 complaining of low back pain. Patient was seen at bedside this morning. Patient says this back pain began about 1 week ago and she noticed it after she sneezed. Patient denies loss of consciousness/any falls. Patient denies pain in any other areas. Patient says some of the pain seems to migrate to the right side and toward the front. Patient feels like n othing has helped relieve this back pain. Patient says she has not had any spine surgery in the past. However, patient says she has had a right knee replacement within the past year as well as shoulder surgery within the past year. Patient also says that she does have rheumatoid arthritis for which she is taking medication and she is currently being tapered off steroids. Patient denies chest pain, fever, shortness of breath, nausea, vomiting, change in vision, loss of bowel/bladder control. Past Medical History Past Medical History: Eye Disorder, GERD/Reflux, Hyperlipidemia, Hypertension, Musculoskeletal Disorder, Rheumatoid Arthritis (RA), Thyroid Disorder Additional Past Medical History / Comment(s): Hx lumpectomy lt breast, benign. Glaucoma. Rt shoulder rotator cuff tear History of Any Multi-Drug Resistant Organisms: None Reported Past Surgical History: Bladder Surgery, Breast Surgery, Hysterectomy, Joint Replacement, Tubal Ligation Additional Past Surgical History / Comment(s): D&C's. Breast bx; Lumpectomy Lt breast. Total Rt Knee 03/27/20, osteoporosis Past Anesthesia/Blood Transfusion Reactions: No Reported Reaction Past Psychological History: No Psychological Hx Reported Smoking Status: Never smoker Past Alcohol Use History: None Reported Past Drug Use History: None Reported - Past Family History Brother(s) Family Medical History: Cancer, Coronary Artery Disease (CAD) Additional Family Medical History / Comment(s): (4) BROTHERS ALL WITH CANCER - multiple myeloma, prostate, liver, stomach cancers Mother Family Medical History: Coronary Artery Disease (CAD), Diabetes Mellitus Father Family Medical History: Coronary Artery Disease (CAD), CVA/TIA Sister(s) Family Medical History: Cancer Additional Family Medical History / Comment(s): colon cancer, multiple myeloma Medications and Allergies Home Medications Medication Instructions Recorded Confirmed Type Cranberry Fruit Extract [Cranberry] 500 mg PO DAILY 01/22/16 04/14/21 History Levothyroxine Sodium [Synthroid] 88 mcg PO MOTUWETHFRSA 01/22/16 04/14/21 History Multivitamins, Thera [Multivitamin 1 tab PO DAILY 01/22/16 04/14/21 History (formulary)] Simvastatin [Zocor] 20 mg PO HS 01/22/16 04/14/21 History Omeprazole 20 mg PO DAILY 03/18/19 04/14/21 History Hydroxychloroquine Sulfate 200 mg PO BID 07/29/19 04/14/21 History [Plaquenil] Latanoprost/Pf [Latanoprost 0.005% 1 drop BOTH EYES HS 09/03/19 04/14/21 History Eye Drop] Metoprolol Succinate (ER) [Toprol 50 mg PO DAILY 03/23/20 04/14/21 History XL] Levothyroxine Sodium [Synthroid] 176 mcg PO DIGGS 03/24/20 04/14/21 History metHOTREXate sodium [Methotrexate] 15 mg PO TU 10/06/20 04/14/21 History Folic Acid 1 mg PO DAILY 02/28/21 04/14/21 History Calcium Carbonate [Calcium] 1,200 mg PO DAILY 04/14/21 04/14/21 History Cholecalciferol [Vitamin D3 (25 25 mcg PO DAILY 04/14/21 04/14/21 History Mcg = 1000 Iu)] Docusate [Colace] 100 mg PO DAILY PRN 3 Days #3 04/14/21 Rx capsule HYDROcodone/APAP 10-325MG [[place] 1 tab PO Q6H PRN 3 Days #12 tab 04/14/21 Rx 10-325] Ibuprofen [Motrin] 600 mg PO Q8HR PRN 04/14/21 04/14/21 History Cefuroxime Axetil [Ceftin] 500 mg PO BID 4 Days #8 tab 04/16/21 Rx Allergies Allergy/AdvReac Type Severity Reaction Status Date / Time Iodinated Contrast Media Allergy Rash/Hives Verified 04/14/21 15:04 [Iodinated Contrast Media - IV Dye] Physical Examination Inspection: Negative for any open fractures, erythema, ecchymosis, nodules Sensation: Sensation is equal, symmetric, bilateral intact throughout the upper and lower extremities Palpation: Moderate TTP along the lower thoracic/upper lumbar spine at midline. Nontender to palpation throughout rest exam Range of motion: Patient has full range of left upper extremity and bilateral lower extremities. Limited forward elevation/abduction of right shoulder. Full range of motion in elbow flexion/extension and wrist flexion/extension in right arm Motor: 4+/5 in all major motor groups in bilateral upper and lower extremities Neurovascular status: Radial pulses intact, 2+ bilaterally. Cap refill under 2 seconds bilaterally in digits of UE. Special tests: Negative Homans bilaterally; negative Argenis's bilaterally Results - Labs Labs: Microbiology - Last 24 Hours (Table) 04/15/21 09:30 Urine Culture - Preliminary Urine,Voided H & H 04/14/21 Range/Units 20:26 Hgb 11.3 L (11.4-16.0) gm/dL Hct 33.4 L (34.0-46.0) % Result Diagrams: 04/14/21 20:26 04/14/21 20:26 Assessment and Plan Assessment: 1. Back pain Plan: 1. Back pain - patient is seen at bedside this morning. After reviewing CT and xray of spine vertebral compression fracture is evident at T11. This does appear to be chronic in nature. I did discuss the findings with my attending, Dr. Stockton. At this time we do not recommend any emergent/urgent orthopedic surgical intervention. At this time we do recommend conservative management medications and LSO brace. Prescription for LSO brace has been left in patient's chart at this time. Once patient receives brace, patient is orthopedically stable for discharge home. We do recommend patient to follow-up in the outpatient setting. At this time orthopedics is signing off. Please do not hesitate to contact us for any further questions. 2. Appreciate medical management 3. Pain management - [place]; Tylenol 4. DVT prophylaxis - Lovenox 5. GI prophylaxis - Tums; Protonix 6. PT/OT - weightbearing as tolerated with LSO brace when up and about/with walker as necessary 7. Encourage incentive spirometer use Time with Patient: Less than 30
[2021-04-16] MEDS ORDERED: KETOROLAC 30 MG/ML 1 ML VIAL IVP STA (16:10)
[2021-04-16] MEDS ORDERED: MORPHINE SULFATE 4 MG/ML SYRINGE IV PRN (16:11)
--- NOTE | 2021-04-16 17:35 | P.PN ---
Subjective Progress Note Date: 04/16/21 70-year-old pleasant female came in with compensative lower back pain as well as upper back pain, has been going on for about a week and this pain followed after a big sneeze. Patient is found to have a T11 vertebral compression fracture. Patient was diagnosed with osteoporosis recently patient has been on steroids and also Prilosec for a while. Patient denied any fever chills patient denied any tingling numbness anywhere. Patient does have increased urinary frequency and dysuria. Urine analysis was opted which is significantly abnormal. Patient does have history of rheumatoid arthritis for which patient is on a is a pleasant medications as well as a prednisone for long time. Her technical instructor is trying to taper off all the steroids. Patient is being monitored for multiple myeloma as well, patient is not diagnosed with multiple myeloma at this time. 04/16/2021 Patient is seen in follow up this morning and continues with right lower back pain and states she felt a sharp pain on the left in the middle of the night that has resolved. Patient was evaluated by orthopedics today recommending LSO brace and conservative management and outpatient follow up. Patient pain is not currently controlled and is using IV pain medications as needed. Patient is currently on IV ceftriaxone for urinary tract infection. REVIEW OF SYSTEMS: CONSTITUTIONAL: No fever, no malaise, no fatigue. CARDIOVASCULAR: No chest pain, orthopnea, PND, no palpitations, no syncope. PULMONARY: No shortness of breath, no cough, no hemoptysis. GASTROINTESTINAL: No diarrhea, no nausea, no vomiting, no abdominal pain. NEUROLOGICAL: No headaches, no weakness, no numbness. GENITOURINARY: Denies any burning micturition, frequency, or urgency. MUSCULOSKELETAL/RHEUMATOLOGICAL: Mentioned in HPI PHYSICAL EXAMINATION: GENERAL: The patient is alert and oriented x3, not in any acute distress. Well developed, well nourished. HEENT: Pupils are round and equally reacting to light. EOMI. No scleral icterus. No conjunctival pallor. Normocephalic, atraumatic. No pharyngeal erythema. No thyromegaly. CARDIOVASCULAR: S1 and S2 present. No murmurs, rubs, or gallops. PULMONARY: Chest is clear to auscultation, no wheezing or crackles. ABDOMEN: Soft, nontender, nondistended, normoactive bowel sounds. No palpable organomegaly. MUSCULOSKELETAL: lower back pain on the right that is sensitive on palpation EXTREMITIES: No cyanosis, clubbing, or pedal edema. NEUROLOGICAL: Gross neurological examination did not reveal any focal deficits. SKIN: No rashes. Assessment and plan: -T11 vertebral compression fracture along with a spondylolisthesis of the lumbar spine: Patient evaluated by orthopedic surgery recommending TLSO brace, pain management, and outpatient follow up -Urinary tract infection, present on admission. patient was started on Rocephin and urine cultures pending. Patient is not septic at this time. Improving per patient -Hyperlipidemia -rheumatoid arthritis. For which patient will continue on her methotrexate hydroxychloroquine and holding prednisone -Osteoporosis secondary to prolonged steroid use probably proton pump inhibitor -Hyperthyroidism for which patient is on levothyroxine which will be continued -Hypertension -DVT prophylaxis: Lovenox -Full code Plan: Patient was to be discharged today after orthopedic evaluation and receiving the TLSO brace. Patient to receive the brace after 4pm. Patient upon discharge had experienced extreme pain and required IV pain medications. Patient will be monitored overnight for pain management and patient is to continue with [place] and will add Flexeril. Attempt to avoid IV pain medications. Awaiting urine cultures as well. Probable discharge in 24 hours. Objective - Vital Signs Vital signs: Vital Signs Temp 98 F 04/16/21 07:00 Pulse 64 04/16/21 07:00 Resp 16 04/16/21 07:00 BP 136/74 04/16/21 07:00 Pulse Ox 96 04/16/21 07:00 Intake & Output 04/15/21 04/16/21 04/16/21 18:59 06:59 18:59 Other: Voiding Method Toilet Toilet # Voids 1 1 - Labs CBC & Chem 7: 04/14/21 20:26 04/14/21 20:26 Labs: Abnormal Lab Results - Last 24 Hours (Table) 04/15/21 Range/Units 09:30 Urine Appearance Turbid H (Clear) Urine Protein 3+ H (Negative) Urine Ketones 3+ H (Negative) Urine Blood Large H (Negative) Urine Bilirubin 1+ H (Negative) Ur Leukocyte Esterase Large H (Negative) Urine RBC >182 H (0-5) /hpf Urine WBC >182 H (0-5) /hpf Urine WBC Clumps Many H (None) /hpf Ur Squamous Epith Cells 8 H (0-4) /hpf Calcium Oxalate Crystal Moderate H (None) /hpf Urine Bacteria Many H (None) /hpf Urine Mucus Many H (None) /hpf Microbiology - Last 24 Hours (Table) 04/15/21 09:30 Urine Culture - Preliminary Urine,Voided
[2021-04-16] MEDS: SODIUM CHLORIDE 0.9% 1,000 ML IV SCH (18:14)
[2021-04-16] MEDS: ATORVASTATIN 10 MG TAB PO SCH (20:51)
[2021-04-16] MEDS: IBUPROFEN 600 MG TAB PO PRN (20:52)
[2021-04-16] MEDS: MELATONIN 3 MG TABLET PO PRN (20:56)
[2021-04-16] MEDS: CYCLOBENZAPRINE 5 MG TAB PO PRN (20:56)
[2021-04-16] MEDS: LATANOPROST 0.005% OPHTH DROPS 2.5 ML BTL BOTH EYES SCH (21:01)
[2021-04-17] MEDS: SODIUM CHLORIDE 0.9% 1,000 ML IV SCH (03:03)
[2021-04-17] MEDS: HYDROcodone/APAP 7.5-325MG 1 EACH TAB PO PRN ×2 (03:05→11:13)
[2021-04-17] MEDS: LEVOTHYROXINE 88 MCG TAB PO SCH (05:09)
[2021-04-17] MEDS: CYCLOBENZAPRINE 5 MG TAB PO PRN (05:09)
[2021-04-17 07:16] VITALS: BP 160/77; PULSE 74; RESP 14; TEMP 98.3
[2021-04-17] MEDS: CALCIUM CARBONATE 500 MG CHEWABLE PO SCH (08:22)
[2021-04-17] MEDS: PANTOPRAZOLE 40 MG TABLET PO SCH (08:22)
[2021-04-17] MEDS: METOPROLOL SUCCINATE (ER) 50 MG TAB.ER.24H PO SCH (08:22)
[2021-04-17] MEDS: HYDROXYCHLOROQUINE SULFATE 200 MG TAB PO SCH (08:23)
[2021-04-17] MEDS: IBUPROFEN 600 MG TAB PO PRN (08:45)
[2021-04-17] MEDS: traMADol 50 MG TAB PO PRN (08:45)
[2021-04-17] MEDS ORDERED: metHOTREXate sodium 2.5 MG TAB PO SCH (09:00)
[2021-04-17] MEDS: ENOXAPARIN 40 MG/0.4 ML SYRINGE SQ SCH (12:30)
[2021-04-17] MEDS: CHOLECALCIFEROL 25 MCG (1000 IU) TABLET PO SCH (13:13)
[2021-04-17] MEDS: FOLIC ACID 1 MG TAB PO SCH (13:13)
[2021-04-17] MEDS: MULTIVITAMINS, THERA 1 EACH TAB PO SCH (13:13)
--- NOTE | 2021-04-17 15:05 | P.DS ---
Providers Date of admission: 04/16/21 10:31 Expected date of discharge: 04/17/21 Attending physician: Mushtaq Muller Consults: 04/14/21 17:36 Consult Physician Urgent Consulting Provider: Dani Stockton Consult Reason/Comments: T11 compression fracture Do you want consulting provider notified?: Yes Primary care physician: Selena Felix Hospital Course: Final diagnosis -T11 vertebral compression fracture along with a spondylolisthesis of the lumbar spine -Urinary tract infection, present on admission -Hyperlipidemia -rheumatoid arthritis -Osteoporosis secondary to prolonged steroid use probably proton pump inhibitor use as well -Hypothyroidism -Hypertension -DVT prophylaxis -Full code Discharge disposition Patient is being discharged in a stable condition with guarded prognosis to home. Patient will follow-up with Dr. Felix in the outpatient setting upon discharge. Patient is to continue with her snuff maker Dr. Rodriguez out of [place] as scheduled. Total time taken is greater than 35 minutes. Hospital course This is a 70-year-old female who came in with lower back pain as well as upper back pain that had been ongoing for a week and progressively getting worse after sneezing. Patient was evaluated by orthopedics recommending conservative management and TLSO brace along with pain management and outpatient follow-up. Patient did receive TLSO brace although continues to have pain and adding muscle relaxers in addition to [place] and also will continue with bowel regimen. Patient will continue on Pepcid twice daily and her low-dose oral prednisone will be discontinued. Patient follows with Dr. Rodriguez rheumatology out of [facility] and will continue. Patient does have a walker at home and instructed the patient to continue using TLSO brace while out of bed and continue with a walker. Currently no reports of chest pain, shortness of breath, or palpitations. Patient is afebrile. No reports of nausea or vomiting and patient is tolerating diet. Patient will be discharged home today. PHYSICAL EXAMINATION: GENERAL: The patient is alert and oriented x3, not in any acute distress. Well developed, well nourished. HEENT: Pupils are round and equally reacting to light. EOMI. No scleral icterus. No conjunctival pallor. Normocephalic, atraumatic. No pharyngeal erythema. No thyromegaly. CARDIOVASCULAR: S1 and S2 present. No murmurs, rubs, or gallops. PULMONARY: Chest is clear to auscultation, no wheezing or crackles. ABDOMEN: Soft, nontender, nondistended, normoactive bowel sounds. No palpable organomegaly. MUSCULOSKELETAL: lower back pain on the right that is sensitive on palpation EXTREMITIES: No cyanosis, clubbing, or pedal edema. NEUROLOGICAL: Gross neurological examination did not reveal any focal deficits. SKIN: No rashes. Please refer to medication reconciliation sheet for a list of medications. The impression and plan of care has been dictated by Deidre Mane, nurse practitioner as directed. Dr. Ezra MD I have performed a history and examination and MDM of this patient, discussed the same with the dictator, and agree with the dictator's assessment and plan as written ,documented as a scribe. Based on total visit time, I have performed more than 50% of the visit. Any additional findings or plans will be noted. Patient Condition at Discharge: Stable Plan - Discharge Summary New Discharge Prescriptions: New Cefuroxime Axetil [Ceftin] 500 mg PO BID 4 Days #8 tab Cyclobenzaprine [Flexeril] 5 mg PO TID PRN #30 tab PRN Reason: Muscle Spasm polyethylene glycoL 3350 [Miralax] 17 gm PO DAILY PRN #30 packet PRN Reason: Constipation Famotidine [Pepcid] 20 mg PO BID #60 tablet Sennosides [Senokot] 8.6 mg PO BID PRN 30 Days #60 tab PRN Reason: Constipation HYDROcodone/APAP 10-325MG [[place] 10-325] 1 tab PO Q6H PRN 3 Days #12 tab PRN Reason: pain Continue Levothyroxine Sodium [Synthroid] 88 mcg PO MOTUWETHFRSA Multivitamins, Thera [Multivitamin (formulary)] 1 tab PO DAILY Simvastatin [Zocor] 20 mg PO HS Cranberry Fruit Extract [Cranberry] 500 mg PO DAILY Hydroxychloroquine Sulfate [Plaquenil] 200 mg PO BID Latanoprost/Pf [Latanoprost 0.005% Eye Drop] 1 drop BOTH EYES HS Metoprolol Succinate (ER) [Toprol XL] 50 mg PO DAILY Levothyroxine Sodium [Synthroid] 176 mcg PO DIGGS Ibuprofen [Motrin] 600 mg PO Q8HR PRN PRN Reason: Pain metHOTREXate sodium [Methotrexate] 15 mg PO TU Folic Acid 1 mg PO DAILY Cholecalciferol [Vitamin D3 (25 Mcg = 1000 Iu)] 25 mcg PO DAILY Calcium Carbonate [Calcium] 1,200 mg PO DAILY Discontinued Omeprazole 20 mg PO DAILY predniSONE 2.5 mg PO DAILY Discharge Medication List Cranberry Fruit Extract [Cranberry] 500 mg PO DAILY 01/22/16 [History] Levothyroxine Sodium [Synthroid] 88 mcg PO MOTUWETHFRSA 01/22/16 [History] Multivitamins, Thera [Multivitamin (formulary)] 1 tab PO DAILY 01/22/16 [History] Simvastatin [Zocor] 20 mg PO HS 01/22/16 [History] Hydroxychloroquine Sulfate [Plaquenil] 200 mg PO BID 07/29/19 [History] Latanoprost/Pf [Latanoprost 0.005% Eye Drop] 1 drop BOTH EYES HS 09/03/19 [History] Metoprolol Succinate (ER) [Toprol XL] 50 mg PO DAILY 03/23/20 [History] Levothyroxine Sodium [Synthroid] 176 mcg PO DIGGS 03/24/20 [History] metHOTREXate sodium [Methotrexate] 15 mg PO TU 10/06/20 [History] Folic Acid 1 mg PO DAILY 02/28/21 [History] Calcium Carbonate [Calcium] 1,200 mg PO DAILY 04/14/21 [History] Cholecalciferol [Vitamin D3 (25 Mcg = 1000 Iu)] 25 mcg PO DAILY 04/14/21 [History] HYDROcodone/APAP 10-325MG [[place] 10-325] 1 tab PO Q6H PRN 3 Days #12 tab 04/14/21 [Rx] Ibuprofen [Motrin] 600 mg PO Q8HR PRN 04/14/21 [History] Cefuroxime Axetil [Ceftin] 500 mg PO BID 4 Days #8 tab 04/16/21 [Rx] Cyclobenzaprine [Flexeril] 5 mg PO TID PRN #30 tab 04/17/21 [Rx] Famotidine [Pepcid] 20 mg PO BID #60 tablet 04/17/21 [Rx] Sennosides [Senokot] 8.6 mg PO BID PRN 30 Days #60 tab 04/17/21 [Rx] polyethylene glycoL 3350 [Miralax] 17 gm PO DAILY PRN #30 packet 04/17/21 [Rx] Follow up Appointment(s)/Referral(s): Selena Felix MD [Primary Care Provider] - 1-2 days [facility] [NON-STAFF] - 1-2 Days Dani Stockton DO [Doctor of Osteopathic Medicine] - 04/27/21 9:50 am Pat[facility] Padilla [NON-STAFF] - As Needed (Supplier of LSO Back Brace) Patient Instructions/Handouts: Vertebral Compression Fracture (ED) Activity/Diet/Wound Care/Special Instructions: Take medication as prescribed. Take spine brace prescriptions to local medical store or spine brace at earliest availability. Follow-up with Dr. Stockton at earliest available appointment for further evaluation and management. Return to the emergency department if you experience new, concerning, or worsening symptoms including but not limited to severe back or leg pain, leg weakness, urinary incontinence, and urinary retention. Activity Limited until follow-up Follow-up with primary care provider on discharge Follow-up with orthopedics outpatient Continue taking antibiotics until finished Patient to continue with LSO brace at all times while out of bed Follow-up with primary care provider on discharge Discharge Disposition: HOME WITH HOME HEALTH SERVICES
== END 2021-04-17 14:55 | disposition home health service (06) | DRG 543 ==
LOC: EC 11:10 → 6NMEDSUR 17:20 → OBSVTOIN 04-16 10:31
PROVIDERS: ADMIT Internal Medicine; ATTEND Internal Medicine
DX: M80.88XA Other osteoporosis with current pathological fracture, vertebra(e), initial encounter for fracture (principal); N39.0 Urinary tract infection, site not specified; T38.0X5A Adverse effect of glucocorticoids and synthetic analogues, initial encounter; T47.1X5A Adverse effect of other antacids and anti-gastric-secretion drugs, initial encounter; E03.9 Hypothyroidism, unspecified; E05.90 Thyrotoxicosis, unspecified without thyrotoxic crisis or storm; E78.5 Hyperlipidemia, unspecified; I10 Essential (primary) hypertension; M06.9 Rheumatoid arthritis, unspecified; M51.34 Other intervertebral disc degeneration, thoracic region; M43.16 Spondylolisthesis, lumbar region; M47.817 Spondylosis without myelopathy or radiculopathy, lumbosacral region; M51.37 Other intervertebral disc degeneration, lumbosacral region; Z79.52 Long term (current) use of systemic steroids; Z79.890 Hormone replacement therapy; Z79.899 Other long term (current) drug therapy; Z80.0 Family history of malignant neoplasm of digestive organs; Z80.7 Family history of other malignant neoplasms of lymphoid, hematopoietic and related tissues; Z82.3 Family history of stroke; Z82.49 Family history of ischemic heart disease and other diseases of the circulatory system; Z83.3 Family history of diabetes mellitus; Z90.710 Acquired absence of both cervix and uterus; Z96.651 Presence of right artificial knee joint; Z80.42 Family history of malignant neoplasm of prostate; Z98.51 Tubal ligation status; Z98.890 Other specified postprocedural states
CPT/HCPCS: 72072; 72110; 72128; 72131; 80048; 81001; 83735; 85025; 87077; 87086; 87186; 96374; 96375; 96376; 99284

== ENCOUNTER 2021-04-19 01:08 | Emergency (ER) | payer MEDICARE, OTHER ==
[2021-04-19] MEDS ORDERED: SODIUM CHLORIDE 0.9% 500 ML 500 ML IV ONE (01:49)
--- NOTE | 2021-04-19 02:03 | ED ---
Abdominal Pain HPI - General Source: patient Mode of arrival: ambulatory <Candy Lorenz - Last Filed: 04/19/21 03:18> <Hansel Kent - Last Filed: 04/19/21 03:29> - General Chief Complaint: Abdominal Pain Stated Complaint: abdominal pain Time Seen by Provider: 04/19/21 01:29 - History of Present Illness Initial Comments: Patient is a 70-year-old female presenting to the ER with chief complaint lower abdominal pain. She was discharged on Friday after suffering a thoracic compression fracture. Patient was discharged with Quinton and MiraLAX and has not had a bowel movement since Friday. Pain is mainly located in the bilateral lowe r quadrants with some radiation to the upper quadrants. It is worse with lying down and sitting and better when she is up ambulating. Patient vomited once today and had several episodes of dry heaving. Patient states she has been frequently passing gas. Patient has not been taking anything else for symptomatic treatment at home. She denies chest pain, shortness of breath, fever, chills, palpitations. Constitutional: Denies fever, chills, HE HEENT: Denies congestion, sore throat, sinus pain, vision changes, eye pain Cardiovascular: Denies chest pain, shortness of breath, palpitations Respiratory: Denies SOB, hemoptysis, cough, history of PE GI: Denies diarrhea, hematemesis, hematochezia : Denies dysuria, urgency, frequency, hematuria, flank pain MSK: Denies gait disturbance, injury, loss of ROM Neuro: Denies dizziness, headache, numbness, tingling, weakness, neck stiffness Integument: Denies rash, pruritus, history of similar rash, exposure to allergen (Candy Lorenz) - Related Data Home Medications Medication Instructions Recorded Confirmed Cranberry Fruit Extract [Cranberry] 500 mg PO DAILY 01/22/16 04/14/21 Levothyroxine Sodium [Synthroid] 88 mcg PO [id number] 01/22/16 04/14/21 Multivitamins, Thera [Multivitamin 1 tab PO DAILY 01/22/16 04/14/21 (formulary)] Simvastatin [Zocor] 20 mg PO HS 01/22/16 04/14/21 Hydroxychloroquine Sulfate 200 mg PO BID 07/29/19 04/14/21 [Plaquenil] Latanoprost/Pf [Latanoprost 0.005% 1 drop BOTH EYES HS 09/03/19 04/14/21 Eye Drop] Metoprolol Succinate (ER) [Toprol 50 mg PO DAILY 03/23/20 04/14/21 XL] Levothyroxine Sodium [Synthroid] 176 mcg PO DIGGS 03/24/20 04/14/21 metHOTREXate sodium [Methotrexate] 15 mg PO TU 10/06/20 04/14/21 Folic Acid 1 mg PO DAILY 02/28/21 04/14/21 Calcium Carbonate [Calcium] 1,200 mg PO DAILY 04/14/21 04/14/21 Cholecalciferol [Vitamin D3 (25 25 mcg PO DAILY 04/14/21 04/14/21 Mcg = 1000 Iu)] Ibuprofen [Motrin] 600 mg PO Q8HR PRN 04/14/21 04/14/21 Previous Rx's Medication Instructions Recorded HYDROcodone/APAP 10-325MG [Quinton 1 tab PO Q6H PRN 3 Days #12 tab 04/14/21 10-325] Cefuroxime Axetil [Ceftin] 500 mg PO BID 4 Days #8 tab 04/16/21 Cyclobenzaprine [Flexeril] 5 mg PO TID PRN #30 tab 04/17/21 Famotidine [Pepcid] 20 mg PO BID #60 tablet 04/17/21 Sennosides [Senokot] 8.6 mg PO BID PRN 30 Days #60 tab 04/17/21 polyethylene glycoL 3350 [Miralax] 17 gm PO DAILY PRN #30 packet 04/17/21 Allergies Allergy/AdvReac Type Severity Reaction Status Date / Time Iodinated Contrast Media Allergy Rash/Hives Verified 04/19/21 01:29 [Iodinated Contrast Media - IV Dye] Review of Systems ROS Other: All systems not noted in ROS Statement are negative. <Candy Lorenz - Last Filed: 04/19/21 03:18> ROS Other: All systems not noted in ROS Statement are negative. <Hansel Kent - Last Filed: 04/19/21 03:29> ROS Statement: Those systems with pertinent positive or pertinent negative responses have been documented in the HPI. Past Medical History Past Medical History: Eye Disorder, GERD/Reflux, Hyperlipidemia, Hypertension, Musculoskeletal Disorder, Rheumatoid Arthritis (RA), Thyroid Disorder Additional Past Medical History / Comment(s): Hx lumpectomy lt breast, benign. Glaucoma. Rt shoulder rotator cuff tear. Spine fracture. History of Any Multi-Drug Resistant Organisms: None Reported Past Surgical History: Bladder Surgery, Breast Surgery, Hysterectomy, Joint R eplacement, Tubal Ligation Additional Past Surgical History / Comment(s): D&C's. Breast bx; Lumpectomy Lt breast. Total Rt Knee 03/27/20, osteoporosis Past Anesthesia/Blood Transfusion Reactions: No Reported Reaction Past Psychological History: No Psychological Hx Reported Smoking Status: Never smoker Past Alcohol Use History: None Reported Past Drug Use History: None Reported - Past Family History Brother(s) Family Medical History: Cancer, Coronary Artery Disease (CAD) Additional Family Medical History / Comment(s): (4) BROTHERS ALL WITH CANCER - multiple myeloma, prostate, liver, stomach cancers Mother Family Medical History: Coronary Artery Disease (CAD), Diabetes Mellitus Father Family Medical History: Coronary Artery Disease (CAD), CVA/TIA Sister(s) Family Medical History: Cancer Additional Family Medical History / Comment(s): colon cancer, multiple myeloma <Candy Lorenz - Last Filed: 04/19/21 03:18> General Exam Limitations: physical limitation (Pt is reluctant to move from wheelchair) General appearance: alert, in distress (in pain) Head exam: Present: atraumatic, normocephalic, normal inspection Eye exam: Present: normal appearance, PERRL, EOMI. Absent: scleral icterus, conjunctival injection, periorbital swelling Neck exam: Present: normal inspection Respiratory exam: Present: normal lung sounds bilaterally. Absent: respiratory distress, wheezes, rales, rhonchi, stridor Cardiovascular Exam: Present: regular rate, normal rhythm, normal heart sounds. Absent: systolic murmur, diastolic murmur, rubs, gallop, clicks GI/Abdominal exam: Present: soft, tenderness, diminished bowel sounds. Absent: distended, guarding, rebound, rigid Neurological exam: Present: alert, oriented X3, CN II-XII intact Psychiatric exam: Present: normal affect, normal mood Skin exam: Present: warm, dry, intact, normal color. Absent: rash <Candy Lorenz - Last Filed: 04/19/21 03:18> Course Vital Signs 04/19/21 01:17 Temperature 97.0 F L Pulse Rate 79 Respiratory 16 Rate Blood Pressure 175/74 O2 Sat by Pulse 100 Oximetry Medical Decision Making - Lab Data Result diagrams: 04/19/21 02:39 04/19/21 02:39 - EKG Data EKG shows normal: sinus rhythm - Radiology Data Radiology results: report reviewed <Candy Lorenz - Last Filed: 04/19/21 03:18> - Lab Data Result diagrams: 04/19/21 02:39 04/19/21 02:39 <Hansel Kent - Last Filed: 04/19/21 03:29> - Medical Decision Making Patient is a 70-year-old female presenting for evaluation of abdominal pain. She was recently discharged with a thoracic compression fracture on friday, and has been taking Quinton and MiraLAX. She has not had a bowel movement since Friday. Pain is localized to the bilateral lower quadrants with some radiation to the upper quadrants. EKG showed no acute changes. Abdominal CT with contrast shows no acute process and constipation of the descending and transverse colon with some fecal matter retained in the rectal vault. CBC shows normal white count. Patient was given IV acetaminophen and a soapsuds enema. This patient was discussed with and handed off to Dr. Kent for further evaluation, management and disposition @3:18. (Candy Lorenz) - Lab Data Lab Results 04/19/21 04/19/21 04/19/21 Range/Units 02:39 02:39 02:39 WBC 7.8 (3.8-10.6) k/uL RBC 3.65 L (3.80-5.40) m/uL Hgb 11.5 (11.4-16.0) gm/dL Hct 33.1 L (34.0-46.0) % MCV 90.8 (80.0-100.0) fL MCH 31.4 (25.0-35.0) pg MCHC 34.6 (31.0-37.0) g/dL RDW 12.3 (11.5-15.5) % Plt Count 340 (150-450) k/uL MPV 7.4 Neutrophils % 72 % Lymphocytes % 18 % Monocytes % 6 % Eosinophils % 1 % Basophils % 0 % Neutrophils # 5.6 (1.3-7.7) k/uL Lymphocytes # 1.4 (1.0-4.8) k/uL Monocytes # 0.5 (0-1.0) k/uL Eosinophils # 0.1 (0-0.7) k/uL Basophils # 0.0 (0-0.2) k/uL Sodium 121 L (137-145) mmol/L Potassium 4.3 (3.5-5.1) mmol/L Chloride 87 L (98-107) mmol/L Carbon Dioxide 25 (22-30) mmol/L Anion Gap 9 mmol/L BUN 11 (7-17) mg/dL Creatinine 0.61 (0.52-1.04) mg/dL Est GFR (CKD-EPI)AfAm >90 (>60 ml/min/1.73 sqM) Est GFR (CKD-EPI)NonAf >90 (>60 ml/min/1.73 sqM) Glucose 87 (74-99) mg/dL Plasma Lactic Acid Lorenzo 1.3 (0.7-2.0) mmol/L Calcium 9.3 (8.4-10.2) mg/dL Total Bilirubin 1.4 H (0.2-1.3) mg/dL AST 66 H (14-36) U/L ALT 35 H (4-34) U/L Alkaline Phosphatase 168 H (38-126) U/L Troponin I (0.000-0.034) ng/mL Total Protein 7.9 (6.3-8.2) g/dL Albumin 3.9 (3.5-5.0) g/dL Amylase 52 (30-110) U/L Lipase 39 (23-300) U/L 04/19/21 Range/Units 02:39 WBC (3.8-10.6) k/uL RBC (3.80-5.40) m/uL Hgb (11.4-16.0) gm/dL Hct (34.0-46.0) % MCV (80.0-100.0) fL MCH (25.0-35.0) pg MCHC (31.0-37.0) g/dL RDW (11.5-15.5) % Plt Count (150-450) k/uL MPV Neutrophils % % Lymphocytes % % Monocytes % % Eosinophils % % Basophils % % Neutrophils # (1.3-7.7) k/uL Lymphocytes # (1.0-4.8) k/uL Monocytes # (0-1.0) k/uL Eosinophils # (0-0.7) k/uL Basophils # (0-0.2) k/uL Sodium (137-145) mmol/L Potassium (3.5-5.1) mmol/L Chloride (98-107) mmol/L Carbon Dioxide (22-30) mmol/L Anion Gap mmol/L BUN (7-17) mg/dL Creatinine (0.52-1.04) mg/dL Est GFR (CKD-EPI)AfAm (>60 ml/min/1.73 sqM) Est GFR (CKD-EPI)NonAf (>60 ml/min/1.73 sqM) Glucose (74-99) mg/dL Plasma Lactic Acid Lorenzo (0.7-2.0) mmol/L Calcium (8.4-10.2) mg/dL Total Bilirubin (0.2-1.3) mg/dL AST (14-36) U/L ALT (4-34) U/L Alkaline Phosphatase (38-126) U/L Troponin I <0.012 (0.000-0.034) ng/mL Total Protein (6.3-8.2) g/dL Albumin (3.5-5.0) g/dL Amylase (30-110) U/L Lipase (23-300) U/L - EKG Data EKG Comments: Interpreted by Dr. Kent (Candy Lorenz) - Radiology Data Abdominal CT with contrast shows no acute process and constipation of the descending and transverse colon with some fecal matter retained in the rectal vault (Candy Lorenz) Disposition <Candy Lorenz - Last Filed: 04/19/21 03:18> Is patient prescribed a controlled substance at d/c from ED?: No <Hansel Kent - Last Filed: 04/19/21 03:29> Clinical Impression: Constipation Disposition: HOME SELF-CARE Condition: Good Instructions (If sedation given, give patient instructions): Constipation (ED) Referrals: Selena Felix MD [Primary Care Provider] - 1-2 days
[2021-04-19] MEDS ORDERED: ACETAMINOPHEN IV (For NPO) 1,000 MG in EMPTY BAG 1 BAG IVPB STA (02:08)
--- NOTE | 2021-04-19 02:29 | CT ---
EXAMINATION TYPE: CT abdomen pelvis wo con DATE OF EXAM: 04/19/2021 COMPARISON: None HISTORY: Lower Abd pain CT DLP: 579.2 mGycm Automated exposure control for dose reduction was used. Images obtained from the diaphragm to the floor the pelvis with no contrast. The lung bases are clear of consolidation. There is minimal subsegmental atelectasis at the lung base s there is mild to moderate hiatal hernia. Heart size is normal. There is no pericardial effusion. Liver is intact. Gallbladder is intact. Spleen is intact. There is no evidence of pancreatic mass. There is no adrenal mass. Kidneys have normal size. There is no hydronephrosis. Ureters are not dilat ed. Abdominal aorta is atheromatous. There is no retroperitoneal adenopathy. Appendix is normal. The bladder distends smoothly. There is no inguinal hernia. There is no mesenteric edema. There is no ascites or free air. There is no evidence of a bowel obstru ction. There is large amount of retained fecal material in the right colon and transverse colon. No evidence of any significant intestinal diverticular disease. Lumbar vertebra show first-degree L5 spondylolisthesis without spondylolysis. There is mild narrowing at L4-5 disc. There is T11 anterior wedging 50%. The bony pelvis is intact. Hip joints are intact. IMPRESSION: Atherosclerotic vascular disease. L4-5 degenerative first-degree spondylolisthesis. T11 compression f racture without change compared to 04/14/2021 exam. Constipation with significant retained fecal material in the right colon and transverse colon.
[2021-04-19 02:57] LABS: Basophils % (A) 0 %; Eosinophils # (A) 0.1 k/uL (0-0.7); Eosinophils % (A) 1 %; HCT 33.1 % (34.0-46.0); HGB 11.5 gm/dL (11.4-16.0); Lymphocytes # (A) 1.4 k/uL (1.0-4.8); Lymphocytes % (A) 18 %; MCH 31.4 pg (25.0-35.0); MCHC 34.6 g/dL (31.0-37.0); MCV 90.8 fL (80.0-100.0); Mean Platelet Volume 7.4; Monocytes # (A) 0.5 k/uL (0-1.0); Monocytes % (A) 6 %; Neutrophils # (A) 5.6 k/uL (1.3-7.7); Neutrophils % (A) 72 %; Platelet Count 340 k/uL (150-450); RBC 3.65 m/uL (3.80-5.40); RDW 12.3 % (11.5-15.5); WBC 7.8 k/uL (3.8-10.6)
[2021-04-19 03:15] LABS: ALT 35 U/L (4-34); AST 66 U/L (14-36); African American GFR (CKD) >90 (>60 ml/min/1.73 sqM); Albumin 3.9 g/dL (3.5-5.0); Alkaline Phosphatase 168 U/L (38-126); Amylase 52 U/L (30-110); Anion Gap 9 mmol/L; Blood Urea Nitrogen 11 mg/dL (7-17); Calcium 9.3 mg/dL (8.4-10.2); Carbon Dioxide 25 mmol/L (22-30); Chloride 87 mmol/L (98-107); Glucose 87 mg/dL (74-99); Lipase 39 U/L (23-300); Non-African American GFR(CKD) >90 (>60 ml/min/1.73 sqM); Potassium 4.3 mmol/L (3.5-5.1); Sodium 121 mmol/L (137-145); Total Bilirubin 1.4 mg/dL (0.2-1.3); Total Protein 7.9 g/dL (6.3-8.2)
[2021-04-19] MEDS ORDERED: MAGNESIUM CITRATE 296 ML BOTTLE PO ONE (04:13)
[2021-04-19 04:59] VITALS: BP 175/70; PULSE 80; RESP 18; TEMP 97.8
== END 2021-04-19 04:59 | disposition home or self-care (01) ==
LOC: EC 01:08 → SUPCPDRO 01:08 → EC 04:59
DX: K59.00 Constipation, unspecified (principal); K21.9 Gastro-esophageal reflux disease without esophagitis; E78.5 Hyperlipidemia, unspecified; I10 Essential (primary) hypertension; M06.9 Rheumatoid arthritis, unspecified; E07.9 Disorder of thyroid, unspecified; M81.0 Age-related osteoporosis without current pathological fracture; Z90.710 Acquired absence of both cervix and uterus; Z98.51 Tubal ligation status
CPT/HCPCS: 36415; 74176; 80053; 82150; 83605; 83690; 84484; 85025; 93005; 96361; 96374; 99284

== ENCOUNTER → 2021-07-09 | Outpatient (CLI) | payer MEDICARE, OTHER ==
--- NOTE | 2021-07-09 09:20 | CT ---
EXAMINATION TYPE: CT thoracic spine wo con DATE OF EXAM: 07/09/2021 COMPARISON: CT dated 04/14/2021 HISTORY: Chronic back pain. T11 compression fx. Osteoporosis and rheumatoid arthritis. CT DLP: 471 mGycm Automated exposure control for dose reduction was used. TECHNIQUE: Multiplanar CT scan of the thoracic spine without IV contrast administration. FINDINGS: Diffuse osteopenia. Anterolisthesis of C4 over C5. Degenerative changes at C5-6 and C6-7 levels. Instructional Writer ian fracture and complete collapse of T11 vertebral body with gibbous deformity and mild retropulsion of the superior posterior aspect of the fractured vertebral body into the spinal canal demonstrating a sharp margin causing mild spinal canal stenosis. The T11 vertebral body collapse has progressed co mpared to April 2021 CT abdomen with more than 95% height reduction of the anterior aspect of the asia tebral body demonstrated today. Suspected nondisplaced fracture of the superior anterior aspect of T1 0 spinous process without displacement. T12 upper endplate depression with mild sclerotic changes and height reduction of about 30%, not well appreciated previously. No other definite vertebral body collapse or acute displaced fracture. No si gnificant thoracic disc disease, other central spinal canal stenosis or neuroforaminal stenosis. Instructional Writer ian healed/healing fractures of the heads of the right 10th and 11th ribs. Minimal bilateral apical p ulmonary fibrotic changes. Scattered arterial atherosclerotic calcification. Small sliding hiatal her alex. Paraspinal minimal hematoma/fat stranding seen surrounding the fractured T11 and to a lesser ext ent T12 vertebral body. IMPRESSION: Chronic fracture of T11 vertebral body with progressive height reduction and possible acute on top of chronic fracture as described above. Mild spinal canal stenosis and possible compression of the spin al cord is seen at that level, please correlate clinically. Further MRI assessment can be considered. Mild upper endplate depression of T12 vertebral body as described above, not well appreciated previou sly and possibly related to osteopenia. Other findings as described above.
--- NOTE | 2021-07-09 09:32 | CT ---
EXAMINATION TYPE: CT lumbar spine wo con DATE OF EXAM: 07/09/2021 8:44 AM COMPARISON: CT dated 04/14/2021 HISTORY: Chronic back pain. T11 compression fx. Osteoporosis and rheumatoid arthritis. CT DLP: 448.2 mGycm Automated exposure control for dose reduction was used. Technique: Unenhanced CT of the lumbar spine was performed. Bone and soft tissue window settings are submitted as well as coronal and sagittal reconstructions. FINDINGS: Diffuse osteopenia. Mild levoscoliosis of the lumbar spine with apex at L4 level. Grade 1 anterolisth esis of L4 over L5 with bilateral L4-5 facet osteoarthropathy. No definite lumbar vertebral body jenna apse or acute displaced fracture. Degenerative changes of the lumbar spine with multilevel opposing endplate osteophytosis. Degenerated L4-5 disc. L5-S1 facet osteoarthropathy is also noted more on the left side. L1-L2: Mild diffuse posterior disc bulge causing no significant central spinal canal stenosis or neur oforaminal stenosis. L2-L3: Diffuse posterior disc bulge with focal left foraminal protrusion, associated with ligamentum flavum hypertrophy, causing moderate to severe central spinal canal stenosis without significant neur oforaminal stenosis. Suspected indentation/compression of the left L2 nerve root in extraforaminal lo cation by adjacent protruded disc. L3-L4: Diffuse posterior disc bulge more inclined to the left side, associated with mild ligamentum f lavum hypertrophy, causing moderate to severe central spinal canal stenosis without significant neuro foraminal stenosis. Suspected indentation/compression of the left L3 nerve root in extraforaminal loc ation. L4-L5: Grade 1 degenerative anterolisthesis with diffuse posterior disc bulge and focal right foramin al protrusion, associated with severe facet osteoarthropathy and marked ligamentum flavum hypertrophy , causing severe central spinal canal stenosis and [id number] bilateral neuroforaminal stenosis . L5-S1: Mild diffuse posterior disc bulge with focal left foraminal protrusion, causing no significant central spinal canal stenosis or significant neuroforaminal stenosis. Bilateral facet osteoarthropat hy is seen at that level, more on the left side. Scattered arterial atherosclerotic calcifications. Fecal loading of the colon. No paraspinal lesion. Subtle fat stranding seen inferior to the pancreatic head, suboptimally assessed by this CT scan. Fur ther dedicated enhanced CT or MR of the pancreas can be considered. CT scan of the thoracic spine is dictated separately. IMPRESSION: No definite lumbar vertebral fracture identified. Degenerative changes of the lumbar spine with multilevel DDD, central spinal canal stenosis and nerve root compression as detailed above. Further MRI assessment can be considered if clinically required. Other incidental findings and recommendations as detailed above.
== END | disposition home or self-care (01) ==
LOC: RADCTMAIN 08:09
PROVIDERS: ATTEND Orthopaedic Surgery
DX: M48.04 Spinal stenosis, thoracic region (principal); S22.089A Unspecified fracture of T11-T12 vertebra, initial encounter for closed fracture; M47.816 Spondylosis without myelopathy or radiculopathy, lumbar region; M48.061 Spinal stenosis, lumbar region without neurogenic claudication; M51.36 Other intervertebral disc degeneration, lumbar region; M81.0 Age-related osteoporosis without current pathological fracture
CPT/HCPCS: 72128; 72131

== ENCOUNTER → 2021-07-13 | Outpatient (CLI) | payer MEDICARE, OTHER ==
--- NOTE | 2021-07-14 02:30 | MR ---
EXAMINATION TYPE: MR jozef/lsbri wo con DATE OF EXAM: 07/13/2021 COMPARISON: CT scan 07/09/2021 HISTORY: Mid and low back pain for 3 months Multiplanar multi echo imaging of the thoracic and lumbar spine without contrast. There is mild posterior disc herniation at C5-6. There is developmentally adequate cervical spinal ca nal. No spinal stenosis. There is anterior wedging of T11 vertebral body with 75% loss of height. The re is mild lower thoracic kyphotic deformity. I do not see definite focal bone destruction. There is no thoracic paraspinal mass. The posterior elements are intact. There is a minimal degenerative first-degree L4-5 spondylolisthesis. Lumbar disc spaces are slightly narrowed. No lumbar compression fracture. No evidence of lumbar paraspinal mass. There is posterior d isc herniations from L2 to L5. There is moderately severe L4-5 bony spinal stenosis. This is related to hypertrophic facet arthropathy and subluxation deformity and posterior disc bulging. There is some mild lateral recess stenosis at L3-4 due to facet arthropathy. IMPRESSION: There is T11 compression fracture with anterior wedging and not changed compared to recent CT scan. F racture has progressed compared to 04/14/2021 exam. Multilevel mild spondylotic changes in lumbar spine. There is moderately severe spinal stenosis at L4 -5. No lumbar compression fracture. Multilevel mild posterior disc bulging and herniation as above.
== END | disposition home or self-care (01) ==
LOC: RADMRIMAIN 17:47
PROVIDERS: ATTEND Orthopaedic Surgery
DX: M48.061 Spinal stenosis, lumbar region without neurogenic claudication (principal); M47.816 Spondylosis without myelopathy or radiculopathy, lumbar region; M48.54XA Collapsed vertebra, not elsewhere classified, thoracic region, initial encounter for fracture; M50.222 Other cervical disc displacement at C5-C6 level; M43.16 Spondylolisthesis, lumbar region
CPT/HCPCS: 72146; 72148

== ENCOUNTER → 2021-09-24 | Outpatient (CLI) | payer MEDICARE, OTHER ==
--- NOTE | 2021-09-24 11:58 | XR ---
EXAMINATION TYPE: XR chest 2V DATE OF EXAM: 09/24/2021 COMPARISON: MRI thoracic spine 07/13/2021 INDICATION: Prebiopsy chest x-ray TECHNIQUE: Frontal and lateral views of the chest are obtained. FINDINGS: The heart size is normal. The pulmonary vasculature is normal. The lungs are clear. Wedge deformity of the lower thoracic spine is again evident and is stable in appearance from 07/14/19 22 MRI. Minimal posterior wall displacement may be present IMPRESSION: 1. No acute pulmonary process. 2. Compression deformity near complete loss of anterior vertebral body height lower thoracic spine, p resent on prior MRI
== END | disposition home or self-care (01) ==
LOC: RADXRMAIN 11:16
PROVIDERS: ATTEND Specialist
DX: M54.50 Low back pain, unspecified (principal); G89.29 Other chronic pain
CPT/HCPCS: 71046

== ENCOUNTER → 2021-09-24 | Outpatient (CLI) | payer MEDICARE, OTHER ==
[2021-09-24 12:00] LABS: Appearance,Urine Clear (Clear); Bilirubin,Urine Negative (Negative); Blood,Urine Negative (Negative); Color,Urine Yellow; Glucose,Urine (UA) Negative (Negative); Ketones,Urine Negative (Negative); Leukocyte Esterase,Urine Negative (Negative); Mucus,Urine Rare /hpf; Nitrite,Urine Negative (Negative); Protein,Urine 1+ (Negative); RBC,Urine 1 /hpf (0-5); Specific Gravity,Urine 1.012 (1.001-1.035); Squamous Epithelial Cell,Urine 1 /hpf (0-4); Urobilinogen,Urine <2.0 mg/dL (<2.0); WBC,Urine 1 /hpf (0-5)
[2021-09-24 12:41] LABS: Partial Thromboplastin Time 25.5 sec (22.0-30.0); Prothrombin Time 10.7 sec (9.0-12.0)
[2021-09-24 17:54] LABS: Basophils # (A) 0.06 X 10*3/uL (0.00-0.10); Basophils % (A) 1.1 %; Eosinophils # (A) 0 X 10*3/uL (0.04-0.35); Eosinophils % (A) 0 %; HCT 33.9 % (37.2-46.3); HGB 10.9 g/dL (12.0-15.0); Immature Grans, Automated 0.2 %; Lymphocytes # (A) 1.23 X 10*3/uL (0.90-5.00); Lymphocytes % (A) 23.2 %; MCH 30.5 pg (27.0-32.0); MCHC 32.2 g/dL (32.0-37.0); Mean Platelet Volume 11.3 fL (9.5-12.2); Monocytes # (A) 0.71 X 10*3/uL (0.20-1.00); Monocytes % (A) 13.4 %; NRBC Per 100 WBC 0 /100 WBCS (0.0-0.0); Neutrophils # (A) 3.29 X 10*3/uL (1.80-7.70); Neutrophils % (A) 62.1 %; Platelet Count 276 X 10*3/uL (140-440); RBC 3.57 X 10*6/uL (4.10-5.20); RDW 12.3 % (11.5-14.5)
[2021-09-24 18:02] LABS: African American GFR (CKD) 91.1 (60.0-200.0); Albumin/Globulin Ratio 1.05 (1.60-3.17); Anion Gap 9.5 mmol/L (10.00-18.00); BUN/Creat Ratio 13.4 Ratio (12.00-20.00); Blood Urea Nitrogen 10.1 mg/dL (9.0-27.0); Calcium 9.7 mg/dL (8.7-10.3); Carbon Dioxide 26.5 mmol/L (20.0-27.5); Globulin 3.8 g/dL (1.6-3.3); Non-African American GFR(CKD) 78.6 (60.0-200.0); Potassium 4.1 mmol/L (3.5-5.5); Total Bilirubin 0.6 mg/dL (0.30-1.20); Total Protein 7.7 g/dL (6.2-8.2)
== END | disposition home or self-care (01) ==
LOC: LABWHC1 10:05
PROVIDERS: ATTEND Specialist
DX: G89.29 Other chronic pain (principal); M54.50 Low back pain, unspecified; M80.00XA Age-related osteoporosis with current pathological fracture, unspecified site, initial encounter for fracture; S22.080B Wedge compression fracture of T11-T12 vertebra, initial encounter for open fracture; X58.XXXA Exposure to other specified factors, initial encounter
CPT/HCPCS: 36415; 80053; 81001; 83036; 85025; 85610; 85730; 87070; 93005

== ENCOUNTER → 2022-02-18 | Outpatient (CLI) | payer MEDICARE, OTHER ==
--- NOTE | 2022-02-18 15:31 | MM ---
Reason for Exam: Screening (asymptomatic). Last mammogram was performed 1 year(s) and 1 month(s) ago. Patient History: Menarche at age 9. First Full-Term at age 17. Hysterectomy at age 60. Postmenopausal. Patient used Estrogen for 2 years. 08/2019, Benign Excisional Biopsy on the left side. 06/08/2012, Benign Core Biopsy on the left side. 11/27/2011, Bilateral Left U/S Cancelled VAD Biopsy. Maternal cousin had breast cancer, age 50. Paternal aunt had breast cancer, age 70. Risk Values: Amy 5 year model risk: 2.1%. NCI Lifetime model risk: 5.1%. Prior Study Comparison: 02/08/2019 Bilateral Diagnostic Mammogram, [facility]. 02/14/2020 Bilateral Diagnostic Mammogram, [facility]. 02/15/2021 Bilateral Screening Mammogram, [facility]. Tissue Density: The breast tissue is heterogeneously dense. This may lower the sensitivity of mammography. Findings: Analyzed By CAD. Biopsy clip anteriorly in the left breast is redemonstrated. There are some loosely grouped benign-appearing rounded dystrophic calcifications in the anterior left breast upper-outer aspect redemonstrated. There is 6 mm partially obscured rounded lesion in the posterior depth outer aspect right breast not clearly seen on prior cc views. There is a 7 mm lesion posteriorly in the right breast that is present and unchanged from several prior mammograms on the MLO views. This may be the same lesion or area of concern on today's CC view. Overall Assessment: Incomplete: need additional imaging evaluation, BI-RAD 0 Management: Special View Mammogram of the right breast. Return for additional spot view and true lateral view right breast. Electronically signed and approved by: Pradeep Beal M.D.
== END | disposition home or self-care (01) ==
LOC: RADMAMWWP 09:32
PROVIDERS: ATTEND Surgery
DX: Z12.31 Encounter for screening mammogram for malignant neoplasm of breast (principal); Z78.0 Asymptomatic menopausal state; Z80.3 Family history of malignant neoplasm of breast
CPT/HCPCS: 77063; 77067

== ENCOUNTER → 2022-02-21 | Outpatient (CLI) | payer MEDICARE, OTHER ==
--- NOTE | 2022-02-21 12:13 | MM ---
Reason for Exam: Additional evaluation requested from abnormal screening. Last screening mammogram was performed less than 1 month ago. Patient History: Menarche at age 9. First Full-Term at age 17. Hysterectomy at age 60. Postmenopausal. Patient used Estrogen for 2 years. 08/2019, Benign Excisional Biopsy on the left side. 06/08/2012, Benign Core Biopsy on the left side. 11/27/2011, Bilateral Left U/S Cancelled VAD Biopsy. Maternal cousin had breast cancer, age 50. Paternal aunt had breast cancer, age 70. Risk Values: Amy 5 year model risk: 2.1%. NCI Lifetime model risk: 5.1%. Tissue Density: Right: There are scattered fibroglandular densities. Findings: Analyzed By CAD. 7 mm thickened but reniform-shaped nodule far posterior and lateral right breast on spot 3-D XCCL has an appearance similar to the low axillary tail lymph node on the MLO view. Likely not included in the [id number] on the patient's prior studies. Precautionary six-month follow-up recommended. The intramammary lymph node in the upper outer quadrant at a middle depth remains unchanged. Overall Assessment: Probably benign, BI-RAD 3 Management: Diagnostic Mammogram of the right breast in 6 months. 1. Patient should continue monthly self breast exams. 2. A clinical breast exam by your physician is recommended on an annual basis. 3. This exam should not preclude additional follow-up of suspicious palpable abnormalities. Results were given to the patient verbally at the time of exam. Electronically signed and approved by: Gary Collins M.D. Radiologist
== END | disposition home or self-care (01) ==
LOC: RADMAMWWP 09:26
PROVIDERS: ATTEND Surgery
DX: R92.8 Other abnormal and inconclusive findings on diagnostic imaging of breast (principal); Z78.0 Asymptomatic menopausal state; Z80.3 Family history of malignant neoplasm of breast
CPT/HCPCS: 77065; G0279; 77061

== ENCOUNTER → 2022-02-27 | Outpatient (CLI) | payer MEDICARE, OTHER ==
[2022-02-27 20:16] LABS: Basophils # (A) 0.06 X 10*3/uL (0.00-0.10); Basophils % (A) 0.9 %; Eosinophils # (A) 0.08 X 10*3/uL (0.04-0.35); Eosinophils % (A) 1.2 %; HCT 31.3 % (37.2-46.3); HGB 9.9 g/dL (12.0-15.0); Immature Grans, Automated 0.1 %; Lymphocytes # (A) 1.89 X 10*3/uL (0.90-5.00); MCH 31.3 pg (27.0-32.0); MCHC 31.6 g/dL (32.0-37.0); MCV 99.1 fL (80.0-97.0); Mean Platelet Volume 10.9 fL (9.5-12.2); Monocytes # (A) 0.82 X 10*3/uL (0.20-1.00); Monocytes % (A) 12.1 %; NRBC Per 100 WBC 0 /100 WBCS (0.0-0.0); Neutrophils % (A) 57.7 %; Platelet Count 244 X 10*3/uL (140-440); RBC 3.16 X 10*6/uL (4.10-5.20); RDW 12.3 % (11.5-14.5); WBC 6.76 X 10*3/uL (4.50-10.00)
[2022-02-27 20:38] LABS: African American GFR (CKD) 98.4 (60.0-200.0); Albumin 4.1 g/dL (3.8-4.9); Albumin/Globulin Ratio 1.27 (1.60-3.17); Anion Gap 9.7 mmol/L (10.00-18.00); BUN/Creat Ratio 20.08 Ratio (12.00-20.00); Blood Urea Nitrogen 14.2 mg/dL (9.0-27.0); Calcium 9.5 mg/dL (8.7-10.3); Carbon Dioxide 28.2 mmol/L (20.0-27.5); Globulin 3.3 g/dL (1.6-3.3); Non-African American GFR(CKD) 84.9 (60.0-200.0); Potassium 4.5 mmol/L (3.5-5.5); T4, Free (Free Thyroxine) 1.94 ng/dL (0.800-1.800); Total Bilirubin 0.7 mg/dL (0.30-1.20); Total Protein 7.4 g/dL (6.2-8.2)
== END | disposition home or self-care (01) ==
LOC: LABWHC1 13:48
PROVIDERS: ATTEND Internal Medicine Endocrinology, Diabetes & Metabolism
DX: I10 Essential (primary) hypertension (principal); M81.0 Age-related osteoporosis without current pathological fracture; E03.9 Hypothyroidism, unspecified; D64.9 Anemia, unspecified
CPT/HCPCS: 36415; 80053; 84439; 84443; 85025

== ENCOUNTER → 2022-08-22 | Outpatient (CLI) | payer MEDICARE, OTHER ==
--- NOTE | 2022-08-22 14:45 | MM ---
Reason for Exam: Follow-up at short interval from prior study. Last screening mammogram was performed 6 month(s) ago. Patient History: Menarche at age 9. First Full-Term at age 17. Hysterectomy at age 60. Postmenopausal. Patient used Estrogen for 2 years. 08/2019, Benign Excisional Biopsy on the left side. 06/08/2012, Benign Core Biopsy on the left side. 11/27/2011, Bilateral Left U/S Cancelled VAD Biopsy. Maternal cousin had breast cancer, age 50. Paternal aunt had breast cancer, age 70. Risk Values: Amy 5 year model risk: 2.1%. NCI Lifetime model risk: 4.8%. Prior Study Comparison: 02/15/2021 Bilateral Screening Mammogram, [facility]. 02/18/2022 Bilateral MG 3D screening mammo w/cad, [facility]. 02/21/2022 Right MG 3D work up w/cad RT, [facility]. Tissue Density: Right: The breast tissue is heterogeneously dense. This may lower the sensitivity of mammography. Findings: Analyzed By CAD. No new suspicious mass or group of calcifications within the right breast. Stable chronic nodularity within the right breast. Intramammary lymph node in the upper-outer quadrant of the right breast middle depth is unchanged. Overall Assessment: Benign, BI-RAD 2 Management: Screening Mammogram of both breasts in 6 months. A clinical breast exam by your physician is recommended on an annual basis and results should be correlated with mammographic findings. This exam should not preclude additional follow-up of suspicious palpable abnormalities. Results were given to the patient verbally at the time of exam. Note on Amy scores and lifetime risk: 1. A Amy score greater than 3% is considered moderate risk. If this is the case, consider specialist referral to assess eligibility for a risk reducing agent. If overall lifetime risk for the development of breast cancer is 20% or higher, the patient may qualify for future screening with alternating mammogram and breast MRI. Electronically signed and approved by: Jorge Mendieta D.O.
== END | disposition home or self-care (01) ==
LOC: RADMAMWWP 14:18
PROVIDERS: ATTEND Surgery
DX: R92.8 Other abnormal and inconclusive findings on diagnostic imaging of breast (principal); Z78.0 Asymptomatic menopausal state; Z80.3 Family history of malignant neoplasm of breast
CPT/HCPCS: 77065; G0279; 77061

== ENCOUNTER → 2022-08-29 | Outpatient (CLI) | payer MEDICARE, OTHER ==
[2022-08-30 04:08] LABS: ALT 24 U/L (8-44); AST 26 U/L (13-35); Albumin 4.1 d/dL (3.8-4.9); Albumin/Globulin Ratio 1.21 Ratio (1.60-3.17); Alkaline Phosphatase 126 U/L (41-126); BUN/Creat Ratio 23.88 Ratio (12.00-20.00); Blood Urea Nitrogen 19.1 mg/dL (9.0-27.0); Calcium 9.6 mg/dL (8.7-10.3); Carbon Dioxide 23.5 mmol/L (21.6-31.8); Chloride 96 mmol/L (96-109); Globulin 3.4 d/dL (1.6-3.3); Glucose 86 mg/dL (70-110); Potassium 4.3 mmol/L (3.5-5.5); Sodium 132 mmol/L (135-145); Total Bilirubin 0.7 mg/dL (0.3-1.2); Total Protein 7.5 d/dL (6.2-8.2)
== END | disposition home or self-care (01) ==
LOC: LABWHC1 13:19
PROVIDERS: ATTEND Internal Medicine Endocrinology, Diabetes & Metabolism
DX: M81.0 Age-related osteoporosis without current pathological fracture (principal)
CPT/HCPCS: 36415; 80053; 82306; 82523; 83970; 84443

== ENCOUNTER → 2022-09-26 | Outpatient (CLI) | payer MEDICARE, OTHER ==
[2022-09-26 13:06] VITALS: BP 180/68; PULSE 69; RESP 16; TEMP 98.2
--- NOTE | 2022-09-26 13:16 | P.PN ---
Subjective Progress Note Date: 09/26/22 Principal diagnosis: fibrocystic breast changes. SCC skin right breast ibrocystic changes of breast Padmini is a 72-year-old white female being followed for fibrocystic breast changes. She is not complaining of any lumps masses or nodules in either breast. She is not complaining of any nipple discharge of concern. [place] [address] which was benign. She has also had prior stereotactic core biopsy of the left breast which was benign. The patient has been diagnosed with polymyalgia rheumatica 2018, and follows with Dr. Nelson. She has a known monoclonal gammopathy however has not been diagnosed with multiple myeloma herself. Bilateral mammogram 02-18-22 BIRAD 0; this led to special views of the right breast done on 02-21-22 BIRAD 3 repeat in 6 months, repeat right breast done on 08-22-22 BIRAD 2 repeat in 6 months. 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 The margins were negative. A 5 year model risks: 2.1% NCI lifetime risk: 4.8% We discussed chemoprevention and she declined. caffeine: none smoke: none chocolate: occasional Family History: brother: liver cancer sister: multipe myloma, colon cancer brother: stomach cancer brother: prostate cancer brother: multiple myloma Hormonal History: menarche: 12 , 4 miscarriages, first born at 18. breast fed:no menopause: 47 BCP: no hormones: < 1 year Surgical History: 1. D&C,s 2. bladder suspension 3. partial hysterectomy 4. shoulder surgery right 5. right knee surgery/ total knee replacement 6. SCC removed right breast 7. back surgery on T11 Medical History: 1. polymalgia rheumatica 2. monoclonal gammonopathy (last seen be Dr. Nelson April 21, 2020) 3. spinal stenosis Social History: smoke: none alcohol: none drugs: none Objective - Vital Signs Vital signs: Intake & Output 09/25/22 09/26/22 09/26/22 18:59 06:59 18:59 Weight 67.132 kg - Constitutional General appearance: Present: cooperative - EENT Eyes: Present: EOMI ENT: Present: hearing grossly normal - Neck Neck: Present: normal ROM - Respiratory Respiratory: bilateral: CTA - Cardiovascular Heart sounds: normal: S1, S2 - Gastrointestinal General gastrointestinal: Present: soft - Integumentary Integumentary: Present: normal turgor - Musculoskeletal Musculoskeletal: Present: gait normal - Psychiatric Psychiatric: Present: A&O x's 3, appropriate affect, intact judgment & insight - Additional findings Additional findings: Breast Exam: BRA: 42C inspection: Bilateral grade 3 ptosis Palpation: Right breast: Multi-positional exam fibrocystic changes, scar status post resection of SCC lateral aspect of right breast Right axilla: No adenopathy of concern Left breast: Multi-positional exam fibrocystic changes no dominant masses or nodules of concern Left axilla: No adenopathy of concern Assessment and Plan Assessment: Impression: 1. Recent bilateral mammogram no dominant masses or nodules of concern; 02-18-22 bilateral led to spectial views of the right breast done on 02-21-22 BIRAD 3 repeat in 6 months, done on 08-22-22 repeat in 6 months 2. Fibrocystic breast changes on physical exam 3. SCC removed right breast 4. Rheumatoid arthritis/spinal stenosis 5. Patient has had right shoulder surgery and right knee replacement in the recent past Plan: 1. Excision skin lesion right breast in the office 2. Bilateral mammogram in 6 months with follow up Cc: Dr. Felix
== END ==
LOC: WWCWWP 12:32
PROVIDERS: ATTEND Surgery
DX: N60.11 Diffuse cystic mastopathy of right breast (principal); D47.2 Monoclonal gammopathy; M06.9 Rheumatoid arthritis, unspecified; M35.3 Polymyalgia rheumatica; Z85.3 Personal history of malignant neoplasm of breast; Z96.651 Presence of right artificial knee joint; M48.00 Spinal stenosis, site unspecified; Z91.041 Radiographic dye allergy status

== ENCOUNTER → 2022-10-14 | Outpatient (CLI) | payer MEDICARE, OTHER ==
--- NOTE | 2022-10-14 13:04 | BD ---
EXAMINATION TYPE: Axial Bone Density DATE OF EXAM: 10/14/2022 CLINICAL HISTORY: 72 years old Female. ICD-10 CODE: M81.0 AGE-RELATED OSTEOPOROSIS Height: 61 Weight: 154.0 FRAX RISK QUESTIONS: Alcohol (3 or more units per day): no Family History (Parent hip fracture): yes Glucocorticoids (More than 3mos): no (Ex: prednisone, prednisolone, methylprednisolone, dexamethasone, and hydrocortisone). History of Fracture in Adulthood: yes Secondary Osteoporosis: 1. Type 1 Diabetes: no 2. Hyperthyroidism: no 3. Menopause before 45: no 4. Malnutrition: no 5. Chronic liver disease: no Rheumatoid Arthritis: yes Current Tobacco Use: no RISK FACTORS HISTORY OF: Surgery to Spine/Hip(right/left)/Wrist (right/left): t spine Family History of Osteoporosis: yes Active: yes Diet low in dairy products/other sources of calcium: no Postmenopausal woman: yes Lost more than 2 inches in height since high school: yes MEDICATIONS: Thyroid Medications: levothyroxine How Lon years Osteoporosis Medications: How Lon year Additional Medications: Additional History: EXAM MEASUREMENTS: Bone mineral densitometry was performed using the [employer] System. Bone mineral density as measured about the Lumbar spine is: ----- L1-L4(G/cm2): 0.958 T Score Values are as follows: ----- L1: -1.9 ----- L2: -2.3 ----- L3: -1.4 ----- L4: -2.0 ----- L1-L4: -1.8 Z Score Values are as follows: ----- L1: -0.3 ----- L2: -0.7 ----- L3: 0.2 ----- L4: -0.4 ----- L1-L4: -0.3 Bone mineral density has: decreased -0.9 % since study of: 03.14.2021 Bone mineral density about the R hip (g/cm2): 0.820 Bone mineral density about the L hip (g/cm2): 0.798 T Score values are as follows: -----R Neck: -2.2 -----L Neck: -2.1 -----R Total: -1.5 -----L Total: -1.7 Z Score values are as follows: -----R Neck: -0.4 -----L Neck: -0.3 -----R Total:0.1 -----L Total: -0.1 Bone mineral density has: decreased -4.7 % since study of: 03.14.2021 FRAX%s: The graph provided illustrates a 43.9% chance for a major osteoporotic fx and a 26.6% chance for the hips probability for fx in 10 years time. IMPRESSION: Osteopenia (T Score between -2.5 and -1). There is slightly increased risk of fracture and the patient may be considered for treatment. Re-Screen 2-5 years. NOTE: T-SCORE=SD OF THE YOUNG ADULT MEAN.
== END | disposition home or self-care (01) ==
LOC: RADBDWWP 11:11
PROVIDERS: ATTEND Internal Medicine Endocrinology, Diabetes & Metabolism
DX: M85.89 Other specified disorders of bone density and structure, multiple sites (principal); Z78.0 Asymptomatic menopausal state
CPT/HCPCS: 77080

== ENCOUNTER → 2022-11-01 | Outpatient (CLI) | payer MEDICARE, OTHER ==
--- NOTE | 2022-11-01 11:22 | XR ---
EXAMINATION TYPE: XR chest 2V DATE OF EXAM: 11/01/2022 COMPARISON: 09/24/2021 HISTORY: Shortness of breath TECHNIQUE: Frontal and lateral views of the chest are obtained. FINDINGS: Scattered senescent parenchymal changes noted. Hyperinflation compatible with COPD. No evidence for infiltrate. No evidence for atelectasis. Heart size is stable. Mediastinal structures are stable and grossly unremarkable. No evidence for hilar prominence. Degenerative changes dorsal spine. IMPRESSION: 1. No evidence for acute pulmonary disease.
[2022-11-01 12:07] LABS: INR 0.9 (<1.2); Partial Thromboplastin Time 24.8 sec (22.0-30.0); Prothrombin Time 10.1 sec (9.0-12.0)
[2022-11-01 16:14] LABS: ALT 23 U/L (8-44); AST 32 U/L (13-35); Albumin 4.1 d/dL (3.8-4.9); Albumin/Globulin Ratio 1.32 Ratio (1.60-3.17); Alkaline Phosphatase 121 U/L (41-126); BUN/Creat Ratio 24.62 Ratio (12.00-20.00); Blood Urea Nitrogen 19.7 mg/dL (9.0-27.0); Calcium 9.8 mg/dL (8.7-10.3); Carbon Dioxide 27.1 mmol/L (21.6-31.8); Chloride 102 mmol/L (96-109); Globulin 3.1 d/dL (1.6-3.3); Glucose 80 mg/dL (70-110); Potassium 4.2 mmol/L (3.5-5.5); Sodium 138 mmol/L (135-145); Total Bilirubin 0.8 mg/dL (0.3-1.2); Total Protein 7.2 d/dL (6.2-8.2)
[2022-11-01 21:09] LABS: Basophils # (A) 0.06 X 10*3/uL (0.00-0.10); Eosinophils % (A) 1.7 %; HCT 31.7 % (37.2-46.3); HGB 10.3 d/dL (12.0-15.0); Lymphocytes # (A) 1.68 X 10*3/uL (0.90-5.00); Lymphocytes % (A) 29.4 %; MCH 31.8 pg (27.0-32.0); MCHC 32.5 d/dL (32.0-37.0); MCV 97.8 FL (80.0-97.0); Mean Platelet Volume 10.6 FL (9.5-12.2); Monocytes # (A) 0.71 X 10*3/uL (0.20-1.00); Monocytes % (A) 12.4 %; NRBC Per 100 WBC 0 X 10*3/uL (0.00-0.01); Neutrophils # (A) 3.15 X 10*3/uL (1.80-7.70); Neutrophils % (A) 55.2 %; Platelet Count 237 X 10*3/uL (140-440); RBC 3.24 X 10*6/uL (4.10-5.20); RDW 12.9 % (11.5-14.5); WBC 5.72 X 10*3/uL (4.50-10.00)
== END | disposition home or self-care (01) ==
LOC: LABPAT 10:00
PROVIDERS: ATTEND Specialist
DX: M43.16 Spondylolisthesis, lumbar region (principal); M48.061 Spinal stenosis, lumbar region without neurogenic claudication; M54.16 Radiculopathy, lumbar region; R06.02 Shortness of breath
CPT/HCPCS: 71046; 80053; 83036; 85025; 85610; 85730; 87070; 87086; 93005

== ENCOUNTER → 2023-02-25 | Outpatient (CLI) | payer MEDICARE, OTHER ==
--- NOTE | 2023-02-25 10:32 | MM ---
Reason for Exam: Additional evaluation requested from prior study. Last screening mammogram was performed 12 month(s) ago. Patient History: Menarche at age 9. First Full-Term at age 17. Hysterectomy at age 60. Postmenopausal. Patient used Estrogen for 2 years. 08/2019, Benign Excisional Biopsy on the left side. 06/08/2012, Benign Core Biopsy on the left side. 11/27/2011, Bilateral Left U/S Cancelled VAD Biopsy. Maternal cousin had breast cancer, age 50. Paternal aunt had breast cancer, age 70. Risk Values: Amy 5 year model risk: 2.1%. NCI Lifetime model risk: 4.8%. Tissue Density: The breast tissue is heterogeneously dense. This may lower the sensitivity of mammography. Findings: Analyzed By CAD. Pattern appears stable. There is a persistent stable appearing nodular density posterior right lateral breast no significant interval changes are evident. No suspicious groups of microcalcifications, spiculated or lobular masses, architectural distortion or other secondary signs of malignancy are mammographically apparent. Overall Assessment: Benign, BI-RAD 2 Management: Screening Mammogram of both breasts in 1 year. A negative mammogram report should not preclude additional follow up of suspicious palpable abnormalities. Patient should continue monthly self breast exam. A clinical breast exam by your physician is recommended on an annual basis and results should be correlated with mammographic findings. Electronically signed and approved by: Tom Plascencia D.O. Radiologis
== END | disposition home or self-care (01) ==
LOC: RADMAMWWP 09:32
PROVIDERS: ATTEND Surgery
DX: R92.333 Mammographic heterogeneous density, bilateral breasts (principal); Z80.3 Family history of malignant neoplasm of breast; Z78.0 Asymptomatic menopausal state
CPT/HCPCS: 77066; G0279; 77062

== ENCOUNTER → 2023-02-27 | Outpatient (CLI) | payer MEDICARE, OTHER ==
--- NOTE | 2023-02-27 12:36 | P.PN ---
Subjective Progress Note Date: 02/27/23 Principal diagnosis: Fibrocystic breast changes/squamous cell carcinoma skin right breast fibrocystic breast changes. SCC skin right breast Padmini is a 72-year-old white female being followed for fibrocystic breast changes. She is not complaining of any lumps masses or nodules in either breast. She is not complaining of any nipple discharge of concern. [place] [address] which was benign. She has also had prior stereotactic core biopsy of the left breast which was benign. The patient has been diagnosed with polymyalgia rheumatica 2018, and follows with Dr. Nelson. She has a known monoclonal gammopathy however has not been diagnosed with multiple myeloma herself. Bilateral mammogram 02-18-22 BIRAD 0; this led to special views of the right breast done on 02-21-22 BIRAD 3 repeat in 6 months, repeat right breast done on 08-22-22 BIRAD 2 repeat in 6 months. She did have a squamous cell carcinoma removed from the lateral aspect of her right breast in November 2021. The margins were negative. She is not complaining of any lumps. masses, or nodules of concern in either breast Bilateral mammogram BIRAD 2 A 5 year model risks: 2.1% NCI lifetime risk: 4.8% We discussed chemoprevention and she declined. caffeine: none smoke: none chocolate: occasional Family History: brother: liver cancer sister: multipe myloma, colon cancer brother: stomach cancer brother: prostate cancer brother: multiple myloma Hormonal History: menarche: 12 , 4 miscarriages, first born at 18. breast fed:no menopause: 47 BCP: no hormones: < 1 year Surgical History: 1. D&C,s 2. bladder suspension 3. partial hysterectomy 4. shoulder surgery right 5. right knee surgery/ total knee replacement 6. SCC removed right breast 7. back surgery on T11 8. left knee replacement Medical History: 1. polymalgia rheumatica 2. monoclonal gammonopathy (last seen be Dr. Nelson April 21, 2020) 3. spinal stenosis Social History: smoke: none alcohol: none drugs: none Objective - Vital Signs Vital signs: Intake & Output 02/26/23 02/27/23 02/27/23 18:59 06:59 18:59 Weight 70.307 kg - Constitutional General appearance: Present: cooperative - EENT Eyes: Present: EOMI ENT: Present: hearing grossly normal - Neck Neck: Present: normal ROM - Respiratory Respiratory: bilateral: CTA - Cardiovascular Heart sounds: normal: S1, S2 - Integumentary Integumentary: Present: normal turgor - Musculoskeletal Musculoskeletal: Present: gait normal - Psychiatric Psychiatric: Present: A&O x's 3, appropriate affect, intact judgment & insight - Additional findings Additional findings: Breast Exam: BRA: 42C inspection: Bilateral grade 3 ptosis Palpation: Right breast: Multi-positional exam fibrocystic changes, scar status post resection of SCC lateral aspect of right breast Right axilla: No adenopathy of concern Left breast: Multi-positional exam fibrocystic changes no dominant masses or nodules of concern Left axilla: No adenopathy of concern Assessment and Plan Assessment: Impression: 1. Recent bilateral [id number] BIRAD 2 2. Fibrocystic breast changes on physical exam 3. SCC removed right breast 4. Rheumatoid arthritis/spinal stenosis Plan: 1. Bilateral mammogram February in 2024 with appointment at that time Cc: Dr. Felix
[2023-02-27 13:00] VITALS: BP 186/73; PULSE 76; RESP 18; TEMP 97.7
== END ==
LOC: WWCWWP 11:22
PROVIDERS: ATTEND Surgery
DX: C44.521 Squamous cell carcinoma of skin of breast (principal); N60.11 Diffuse cystic mastopathy of right breast; M06.9 Rheumatoid arthritis, unspecified; M35.3 Polymyalgia rheumatica; R92.8 Other abnormal and inconclusive findings on diagnostic imaging of breast; D47.2 Monoclonal gammopathy; Z90.711 Acquired absence of uterus with remaining cervical stump; Z98.890 Other specified postprocedural states; Z88.1 Allergy status to other antibiotic agents

== ENCOUNTER → 2023-11-25 | Outpatient (CLI) | payer MEDICARE, OTHER ==
[2023-11-25 15:51] LABS: ALT 33 U/L (8-44); AST 38 U/L (13-35); Albumin 4.1 g/dL (3.8-4.9); Albumin/Globulin Ratio 1.24 Ratio (1.60-3.17); Alkaline Phosphatase 91 U/L (41-126); BUN/Creat Ratio 21.67 Ratio (12.00-20.00); Blood Urea Nitrogen 19.5 mg/dL (9.0-27.0); Calcium 9.1 mg/dL (8.7-10.3); Carbon Dioxide 24.5 mmol/L (21.6-31.8); Chloride 102 mmol/L (96-109); Globulin 3.3 g/dL (1.6-3.3); Glucose 77 mg/dL (70-110); Potassium 4.1 mmol/L (3.5-5.5); Sodium 139 mmol/L (135-145); Total Bilirubin 1.1 mg/dL (0.3-1.2); Total Protein 7.4 g/dL (6.2-8.2)
[2023-12-02 13:39] LABS: Creatinine Urine Random 36 mg/dL (20-275); N-Telopeptides/Creat Ratio, Ur 12
== END | disposition home or self-care (01) ==
LOC: LABWHC1 11:33
PROVIDERS: ATTEND Internal Medicine Endocrinology, Diabetes & Metabolism
DX: M81.0 Age-related osteoporosis without current pathological fracture (principal)
CPT/HCPCS: 36415; 80053; 82306; 82523; 83970; 84443

== ENCOUNTER → 2023-12-26 | Outpatient (CLI) | payer MEDICARE, OTHER ==
[2023-12-26 15:14] LABS: Basophils # (A) 0.05 X 10*3/uL (0.00-0.10); Basophils % (A) 0.9 %; Eosinophils # (A) 0.16 X 10*3/uL (0.04-0.35); Eosinophils % (A) 2.9 %; HCT 31.9 % (37.2-46.3); HGB 10.4 g/dL (12.0-15.0); Lymphocytes % (A) 30.3 %; MCH 32.8 pg (27.0-32.0); MCHC 32.6 g/dL (32.0-37.0); MCV 100.6 FL (80.0-97.0); Mean Platelet Volume 11.4 FL (9.5-12.2); Monocytes # (A) 0.76 X 10*3/uL (0.20-1.00); Monocytes % (A) 13.5 %; NRBC Per 100 WBC 0 X 10*3/uL (0.00-0.01); Neutrophils # (A) 2.92 X 10*3/uL (1.80-7.70); Platelet Count 223 X 10*3/uL (140-440); RBC 3.17 X 10*6/uL (4.10-5.20); RDW 12.3 % (11.5-14.5); WBC 5.61 X 10*3/uL (4.50-10.00)
[2023-12-26 15:30] LABS: ALT 26 U/L (8-44); AST 32 U/L (13-35); Albumin 3.9 g/dL (3.8-4.9); Albumin/Globulin Ratio 1.18 Ratio (1.60-3.17); Alkaline Phosphatase 86 U/L (41-126); Bilirubin, Conjugated 0.24 mg/dL (0.20-0.40); Bilirubin,Unconjugated 0.76 mg/dL (0.20-1.00); C Reactive Protein <0.30 mg/dL (0.00-0.80); Globulin 3.3 g/dL (1.6-3.3); Total Protein 7.2 g/dL (6.2-8.2)
[2023-12-26 17:35] LABS: Erythrocyte Sedimentation Rate 42 mm/Hr (0-30)
== END | disposition home or self-care (01) ==
LOC: LABWHC1 10:37
PROVIDERS: ATTEND Internal Medicine
DX: M06.09 Rheumatoid arthritis without rheumatoid factor, multiple sites (principal); Z51.81 Encounter for therapeutic drug level monitoring; Z79.631 Long term (current) use of antimetabolite agent
CPT/HCPCS: 36415; 80076; 82565; 85025; 85652; 86140

== ENCOUNTER → 2024-02-17 | Outpatient (CLI) | payer MEDICARE, OTHER ==
--- NOTE | 2024-02-17 11:33 | US ---
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 FINDINGS: SIDE PERFORMED: Bilateral 1) Color flow is present and patency is documented in the following vessels. No DVT or SVT is noted . Common Femoral Vein Deep Femoral Vein Femoral Vein Popliteal Vein Proximal Calf Veins Greater Saph Vein Upper Small Saph Vein Patient struggled with closing some valves with valsalva, but no reflux was clearly indicated Color Doppler imaging shows patency of the vessels. Spectral waveforms are within normal limits. IMPRESSION: No evidence for venous insufficiency/reflux. [facility], , 02/17/2024 11:31 AM
== END | disposition home or self-care (01) ==
LOC: RADUSWWP 10:51
PROVIDERS: ATTEND Family Medicine
DX: I87.2 Venous insufficiency (chronic) (peripheral) (principal)
CPT/HCPCS: 93970

== ENCOUNTER → 2024-03-19 | Outpatient (CLI) | payer MEDICARE, OTHER ==
--- NOTE | 2024-03-19 12:48 | MM ---
Reason for Exam: Screening (asymptomatic). Last screening mammogram was performed 12 month(s) ago. Patient History: Menarche at age 9. First Full-Term at age 17. Hysterectomy at age 60. Postmenopausal. Patient used Estrogen for 2 years. 08/2019, Benign Excisional Biopsy on the left side. 06/08/2012, Benign Core Biopsy on the left side. 11/27/2011, Bilateral Left U/S Cancelled VAD Biopsy. Maternal cousin had breast cancer, age 50. Paternal aunt had breast cancer, age 70. Risk Values: Amy 5 year model risk: 2.1%. NCI Lifetime model risk: 4.5%. Prior Study Comparison: 02/21/2022 Right MG 3D work up w/cad RT, [facility]. 08/22/2022 Right MG 3D diag mammo w/cad RT, [facility]. 02/25/2023 Bilateral MG 3D diag mammo w/cad [facility], [facility]. Tissue Density: The breasts are heterogeneously dense, which may obscure small masses. Findings: Analyzed By CAD. Left breast biopsy clip. Right breast: There is no suspicious group of microcalcifications or new suspicious mass. Left breast: There is no suspicious group of microcalcifications or new suspicious mass. Overall Assessment: Negative, BI-RAD 1 Management: Screening Mammogram of both breasts in [address] [facility] will attempt to contact patient to return for supplemental views and ultrasound if indicated. Patient should continue monthly self-breast exams. A clinical breast exam by your physician is recommended on an annual basis. This exam should not preclude additional follow-up of suspicious palpable abnormalities. Note on Amy scores and lifetime risk: 1. A Amy score greater than 3% is considered moderate risk. If this is the case, consider specialist referral to assess eligibility for a risk reducing agent. 2. If overall lifetime risk for the development of breast cancer is 20% or higher, the patient may qualify for future screening with alternating mammogram and breast MRI. [facility], , 03/19/2024 12:44 PM. Electronically signed and approved by: Sukhjinder Martinez DO
== END | disposition home or self-care (01) ==
LOC: RADMAMWWP 12:20
PROVIDERS: ATTEND Surgery
DX: Z12.31 Encounter for screening mammogram for malignant neoplasm of breast (principal); R92.333 Mammographic heterogeneous density, bilateral breasts; Z78.0 Asymptomatic menopausal state; Z80.3 Family history of malignant neoplasm of breast
CPT/HCPCS: 77063; 77067

== ENCOUNTER → 2024-05-17 | Outpatient (CLI) | payer MEDICARE, OTHER ==
[2024-05-17 16:01] LABS: BUN/Creat Ratio 23.12 Ratio (12.00-20.00); Blood Urea Nitrogen 18.5 mg/dL (9.0-27.0); Glucose 90 mg/dL (70-110)
[2024-05-17 16:02] LABS: ALT 24 U/L (8-44); AST 33 U/L (13-35); Albumin 3.8 g/dL (3.8-4.9); Albumin/Globulin Ratio 1.12 Ratio (1.60-3.17); Alkaline Phosphatase 68 U/L (41-126); Calcium 9.3 mg/dL (8.7-10.3); Carbon Dioxide 26.8 mmol/L (21.6-31.8); Chloride 105 mmol/L (96-109); Globulin 3.4 g/dL (1.6-3.3); Potassium 3.9 mmol/L (3.5-5.5); Sodium 142 mmol/L (135-145); Total Bilirubin 0.8 mg/dL (0.3-1.2); Total Protein 7.2 g/dL (6.2-8.2)
[2024-05-17 18:53] LABS: C-Peptide 2.51 ng/mL (0.81-3.85)
== END | disposition home or self-care (01) ==
LOC: LABWHC1 11:34
PROVIDERS: ATTEND Internal Medicine Endocrinology, Diabetes & Metabolism
DX: M81.0 Age-related osteoporosis without current pathological fracture (principal)
CPT/HCPCS: 36415; 80053; 82306; 82523; 83970; 84443; 84681

== ENCOUNTER → 2024-07-27 | Outpatient (CLI) | payer MEDICARE, OTHER ==
[2024-07-27 15:16] LABS: ALT 28 U/L (8-44); AST 35 U/L (13-35); Albumin 3.9 g/dL (3.8-4.9); Albumin/Globulin Ratio 1.18 Ratio (1.60-3.17); Alkaline Phosphatase 72 U/L (41-126); Bilirubin, Conjugated 0.42 mg/dL (0.20-0.40); Bilirubin,Unconjugated 0.68 mg/dL (0.20-1.00); C Reactive Protein <0.30 mg/dL (0.00-0.80); Globulin 3.3 g/dL (1.6-3.3); Total Bilirubin 1.1 mg/dL (0.3-1.2); Total Protein 7.2 g/dL (6.2-8.2)
[2024-07-27 15:20] LABS: Basophils # (A) 0.07 X 10*3/uL (0.00-0.10); Basophils % (A) 1.4 %; Eosinophils % (A) 4.1 %; HCT 33.1 % (37.2-46.3); HGB 10.7 g/dL (12.0-15.0); Lymphocytes # (A) 1.72 X 10*3/uL (0.90-5.00); Lymphocytes % (A) 35.2 %; MCH 31.5 pg (27.0-32.0); MCHC 32.3 g/dL (32.0-37.0); MCV 97.4 FL (80.0-97.0); Mean Platelet Volume 10.8 FL (9.5-12.2); Monocytes # (A) 0.58 X 10*3/uL (0.20-1.00); Monocytes % (A) 11.9 %; NRBC Per 100 WBC 0 X 10*3/uL (0.00-0.01); Neutrophils # (A) 2.31 X 10*3/uL (1.80-7.70); Neutrophils % (A) 47.2 %; Platelet Count 208 X 10*3/uL (140-440); RDW 12.5 % (11.5-14.5); WBC 4.89 X 10*3/uL (4.50-10.00)
[2024-07-27 15:57] LABS: Erythrocyte Sedimentation Rate 69 mm/Hr (0-30)
== END | disposition home or self-care (01) ==
LOC: LABWHC1 11:21
PROVIDERS: ATTEND Internal Medicine
DX: Z51.81 Encounter for therapeutic drug level monitoring (principal); M06.09 Rheumatoid arthritis without rheumatoid factor, multiple sites; D84.9 Immunodeficiency, unspecified; Z79.631 Long term (current) use of antimetabolite agent
CPT/HCPCS: 36415; 80076; 82565; 85025; 85652; 86140

== ENCOUNTER → 2024-09-17 | Outpatient (CLI) | payer MEDICARE, OTHER ==
[2024-09-17 15:24] LABS: HCT 32.3 % (37.2-46.3); HGB 10.5 g/dL (12.0-15.0); MCH 31.6 pg (27.0-32.0); MCHC 32.5 g/dL (32.0-37.0); MCV 97.3 FL (80.0-97.0); NRBC Per 100 WBC 0 X 10*3/uL (0.00-0.01); Platelet Count 217 X 10*3/uL (140-440); RBC 3.32 X 10*6/uL (4.10-5.20); RDW 12.5 % (11.5-14.5); WBC 5.47 X 10*3/uL (4.50-10.00)
[2024-09-17 15:25] LABS: Basophils # (A) 0.08 X 10*3/uL (0.00-0.10); Basophils % (A) 1.5 %; Eosinophils # (A) 0.19 X 10*3/uL (0.04-0.35); Eosinophils % (A) 3.5 %; Immature Grans, Automated 0.20 %; Lymphocytes # (A) 1.87 X 10*3/uL (0.90-5.00); Lymphocytes % (A) 34.2 %; Monocytes # (A) 0.84 X 10*3/uL (0.20-1.00); Monocytes % (A) 15.4 %; Neutrophils # (A) 2.48 X 10*3/uL (1.80-7.70); Neutrophils % (A) 45.2 %
[2024-09-17 15:34] LABS: ALT 28 U/L (8-44); AST 33 U/L (13-35); Albumin 4.0 g/dL (3.8-4.9); Albumin/Globulin Ratio 1.21 Ratio (1.60-3.17); Alkaline Phosphatase 74 U/L (41-126); Bilirubin,Unconjugated 0.50 mg/dL (0.20-1.00); Globulin 3.3 g/dL (1.6-3.3); Total Protein 7.3 g/dL (6.2-8.2)
== END | disposition home or self-care (01) ==
LOC: LABWHC1 10:35
PROVIDERS: ATTEND Internal Medicine
DX: Z15.81 Genetic susceptibility to multiple endocrine neoplasia [MEN] (principal); M06.09 Rheumatoid arthritis without rheumatoid factor, multiple sites; D84.9 Immunodeficiency, unspecified; Z79.631 Long term (current) use of antimetabolite agent
CPT/HCPCS: 36415; 80076; 82565; 85025; 85652; 86140